=== PATIENT | female | born 1955 | race Caucasian/White ===

== ENCOUNTER 2023-04-12 15:10 | Emergency (ER) | payer OTHER, MEDICARE, SELFPAY ==
[2023-04-12 15:15] VITALS: BP 147/74; PULSE 71; RESP 16; TEMP 36.6; O2SAT 98; BMI 21.3
--- NOTE | 2023-04-12 15:23 | ED.SKABFB1 ---
HPI - Skin/Abscess/Foreign Bdy General Chief complaint: Skin/Abscess/Foreign Body Stated complaint: [facility] IN[facility] Time Seen by Provider: 04/12/23 15:23 Source: patient Mode of arrival: walk-in Limitations: no limitations History of Present Illness HPI narrative: Presenting to the ER with a laceration to the left hand that she sustained while shopping at [employer] from one of the place there was she is grabbing it The patient does not remember the last time she had a tetanus booster Related Data Allergies Allergy/AdvReac Type Severity Reaction Status Date / Time No Known Drug Allergies Allergy Verified 04/12/23 15:14 Review of Systems ROS Status of ROS 10 or more systems reviewed and unremarkable except as noted in history and below PFSH PFS Social History Smoking status: Never smoker Exam Narrative Exam Narrative: Nurses notes and vital signs reviewed and patient is not hypoxic. General: Well-appearing and in no apparent distress. Skin: Warm, dry, no pallor noted. No rash. Head: Normocephalic, atraumatic. Neck: Supple, non-tender. Eye: Pupils are equal, round and EOMI. No scleral icterus. Ears, Nose, Mouth, and Throat: TM are clear, no nasal mucosal hypertrophy. Oral mucosa is moist, no posterior oropharynx erythema, uvula is mid-line Cardiovascular: Regular Rate and Rhythm without murmur, gallop or rub. Respiratory: No accessory muscle use or respiratory distress. Lungs are clear to auscultation, no wheezing, rales or rhonchi Chest Wall: no tenderness Back: No midline thoracic or lumbar vertebral tenderness. No CVA tenderness Musculoskeletal: normal ROM, no calf or popliteal tenderness, no lower extremity edema/swelling, on the palmar aspect of the left hand just below the index finger at the metacarpal phalangeal joint the patient have a laceration that is superficial with no exposure of the underlying structures approximated by self although there is some bleeding GI: Abdomen is soft, non-distended. Normal bowel sounds. No masses appreciated. No tenderness to palpation. No rebound, guarding, or rigidity noted. Neurological: A&O x4. No cranial nerve dysfunction observed. No truncal ataxia. Moves all extremities. Sensation intact. Psychiatric: Cooperative and interactive. Normal mood and affect. Constitutional Vital Signs, click to edit/add: Last Vital Signs Temp 98 F 04/12/23 15:15 Pulse 71 04/12/23 15:15 Resp 16 04/12/23 15:15 BP 147/74 H 04/12/23 15:15 Pulse Ox 98 04/12/23 15:15 O2 Del Method Room Air 04/12/23 15:15 Course Vital Signs Vital signs: Vital Signs Temperature 98 F 04/12/23 15:15 Pulse Rate 71 04/12/23 15:15 Respiratory Rate 16 04/12/23 15:15 Blood Pressure 147/74 H 04/12/23 15:15 Pulse Oximetry 98 04/12/23 15:15 Oxygen Delivery Method Room Air 04/12/23 15:15 Temperature 98 F 04/12/23 15:15 Pulse Rate 71 04/12/23 15:15 Respiratory Rate 16 04/12/23 15:15 Blood Pressure 147/74 H 04/12/23 15:15 Pulse Oximetry 98 04/12/23 15:15 Oxygen Delivery Method Room Air 04/12/23 15:15 MDM - Skin/Abscess/Foreign Bdy MDM Narrative Medical decision making narrative: No foreign body and no exposure of the underlying structures no tendon involvement as well Patient had pressure applied and then Dermabond and then clean dressing with Dante wrap Wound care at home Tetanus booster provided in the ER The patient is to follow up with primary care physician in next 2-3 days or to return to the emergency department should any of the signs or symptoms worsen or new symptoms develop. The patient agrees with the following Diagnosis and Treatment plan and the patient will be discharged home. Discharge Plan Discharge Chief Complaint: Skin/Abscess/Foreign Body Clinical Impression: Hand laceration Patient Disposition: Home, Self-Care Time of Disposition Decision: 15:30 Condition: Good Instructions: Laceration (ED), Skin Adhesive Care (ED) Stand Alone Forms: Portal Instructions Referrals: Fritz Dubon MD [Physician] - 1 week
[2023-04-12] MEDS: ADACEL DIPH,PERTUSS(ACELL),TET VAC/PF 0.5 ML ADULT SYRINGE IM (15:35)
[2023-04-12 15:40] VITALS: BP 137/72; PULSE 82; RESP 18; O2SAT 98
== END 2023-04-12 15:42 | disposition home or self-care (01) ==
PROVIDERS: Emergency Provider Emergency Medicine; PCP Family Medicine
DX: S61.211A Laceration without foreign body of left index finger without damage to nail, initial encounter (principal); Z23 Encounter for immunization; W26.9XXA Contact with unspecified sharp object(s), initial encounter
CPT/HCPCS: 90471; 90715; 99284

== ENCOUNTER 2024-04-13 22:27 | Emergency (ER) | payer MEDICARE, SELFPAY ==
--- OUTSIDE RECORDS SUMMARY | 2024-04-13 22:32 | XMS_ITS | CCD ---
Author Organization [facility] Care Team Providers Care Intake Clinician Name Role Phone ROMELIA POZO Admitting Unavailable DR RAMON ARCHIBALD Primary Care Unavailable ROMELIA POZO Attending Unavailable ROMELIA POZO Consulting Unavailable EMMETT, DR RAMON Hauser Primary Care Unavailable ROMELIA POZO Attending Unavailable ROMELIA POZO Consulting Unavailable ROMELIA POZO Admitting Unavailable EMMETT, DR RAMON Hauser Attending Unavailable EMMETT, DR RAMON Hauser Consulting Unavailable EMMETT, DR RAMON Hauser Primary Care Unavailable DR RAMON ARCHIBALD Admitting Unavailable Medications Current Medications Medication Drug Class(es) Dates Sig (Normalized) Sig (Original) [id number] 200 actuat albuterol 0.09 mg/actuat metered dose inhaler (1 source) beta2-Adrenergic Agonist Start: 03-24-2024 take 1 puff(s) by inhalation every four hours Albuterol Sulfate Active 2 PUFF INHALATION Q4H 1 March 24, 2024 12:00am amoxicillin 500 mg oral capsule (1 source) Penicillin-class Antibacterial Start: 03-24-2024 take 1000 mg by mouth every eight hours Amoxicillin Active 1000 MG PO Every 8 hours 42 7 March 24, 2024 12:00am predniSONE 20 mg oral tablet (1 source) Start: 03-24-2024 take 20 mg by mouth twice daily Prednisone Active 20 MG PO Twice daily 10 March 24, 2024 12:00am Pyrilamine-Dextrom ethorphan ([place] Dm) 7.5-7.5 mg/5 mL liquid (1 source) Start: 03-24-2024 take 1 mL by mouth every eight hours Pyrilamine-Dextro methorphan ([place] Dm) 7.5-7.5 mg/5 mL liquid Active 10 ML PO Every 8 hours 150 March 24, 2024 12:00am Problems Active Problems Problem Classification Problem Date Documented Da te Episodic/Chronic Immunizations and screening for infectious disease (4 sources) Encounter for immunization; Translations: [ENCOUNTER FOR IMMUNIZATION] Onset: 04-12-2021 Episodic Other lower respiratory disease (1 source) Unspecified acute lower respiratory infection; Translations: [Other diseases of respiratory system, not elsewhere classified] 03-24-2024 Episodic Other screening for suspected conditions (not mental disorders or infectious disease) (2 sources) Patient encounter status; Translations: [Encounter for screening mammogram for malignant neoplasm of breast] 03-25-2024 Episodic Residual codes; unclassified (1 source) Menopause present; Translations: [Asymptomatic menopausal state] 03-25-2024 Episodic Residual codes; unclassified (1 source) Asymptomatic menopausal state; Translations: [Symptomatic menopausal or female climacteric states] 03-25-2024 Episodic Unclassified (2 sources) CONTACT W/AND (SUSP) EXPOS COVID-19; Translations: [CONTACT W/AND (SUSP) EXPOS COVID-19] Onset: 04-02-2021 Viral infection (1 source) COVID-19; Translations: [COVID-19] Onset: 04-02-2021 Past or Other Problems Problem Classification Problem Date Documented Da te Episodic/Chronic Unclassified (1 source) CONTACT W/AND (SUSP) EXPOS COVID-19; Translations: [CONTACT W/AND (SUSP) EXPOS COVID-19] Onset: 03-28-2021 Results Test Name Value Interpretation Reference Range Facil ity Covid-19 PCR (CVDTBH)on 03-11 SARS-CoV-2 (COVID-19) RNA LILLY+probe Ql (Unsp spec) Detected Critically abnormal NOT DETECTED [facility] Comment on above: Result Comment: This test is not yet aguilar roved or cleared by the [place] FDA. When there are no FDA-approved or cleared tests available, and other criteria are met, FDA can make tests available under an emergency access mechanism called an Emergency Use Authorization (EUA). The EUA for this test is supported by the [place] of Health and Human Service's (HHS's) declaration that circumstances exist to justify the emergency use of in vitro diagnostics for the detection and/or diagnosis of the virus that causes COVID-19. This EUA will remain in effect (meaning this test can be used) for the duration of the COVID-19 declaration justifying emergency of IVDs, unless it is terminated or revoked by FDA (after which the test may no longer be used). Performed By: #### [facility] #### [facility] [address] [place] [address] Dr. Vamshi Whittington Vital Signs Date Time Vital Sign Value Performing Clinician Susan clement 03-25-2024 08:16-0400 Body height 172.72 cm [facility] 03-25-2024 08:16-0400 Body mass index (BMI) [Ratio] 21.8 kg/m2 [facility] 03-25-2024 08:16-0400 Body weight 65.03 kg [facility] 03-25-2024 08:16-0400 Diastolic blood pressure 70 mm[Hg] [facility] 03-25-2024 08:16-0400 Heart rate 84 /min [facility] 03-25-2024 08:16-0400 Respiratory rate 16 /min [facility] 03-25-2024 08:16-0400 SaO2% (BldA) [Mass fraction] 97 % [facility] 03-25-2024 08:16-0400 Systolic blood pressure 130 mm[Hg] [facility] 03-24-2024 16:39-0400 Body height 172.72 cm [facility] 03-24-2024 16:39-0400 Body mass index (BMI) [Ratio] 22.2 kg/m2 [facility] 03-24-2024 16:39-0400 Body temperature 98.7 [degF] [facility] 03-24-2024 16:39-0400 Body weight 66.28 kg [facility] 03-24-2024 16:39-0400 Diastolic blood pressure 76 mm[Hg] [facility] 03-24-2024 16:39-0400 Heart rate 67 /min [facility] 03-24-2024 16:39-0400 Respiratory rate 18 /min [facility] 03-24-2024 16:39-0400 SaO2% (BldA) [Mass fraction] 95 % [facility] 03-24-2024 16:39-0400 Systolic blood pressure 126 mm[Hg] [facility] Encounters Encounter Date Encounter Type Care Provider Facility Start: 03-25-2024 End: 03-25-2024 ambulatory [facility] Work Phone: Start: 03-25-2024 End: 03-25-2024 Patient encounter procedure [facility] Work Phone: Start: 03-24-2024 End: 03-24-2024 ambulatory [facility] Work Phone: Start: 03-24-2024 End: 03-24-2024 Patient encounter procedure [facility] Work Phone: Start: 04-12-2021 End: 04-12-2021 ambulatory ROMELIA POZO Facility:[facility] Start: 03-28-2021 End: 03-28-[address] RAMON ARCHIBALD Facility:[facility] Start: 03-22-2021 End: 03-22-[address] RAMON ARCHIBALD Facility:[facility] Plan of Treatment Date Care Activity Detail Author DXA Skeletal system. axial Views for bone density [facility] enter MG Breast - bilateral Screening [facility] Payers Date Payer Category Payer Medicare [id number] 1955 Unknown [id number] 1955 Unknown [id number] 1955 Unknown [id number] Private Health Insurance [facility] [id number] Social History Date Type Detail [facility] Work Phone: Start: 1955 Sex Assigned At Female F [facility] Start: 03-25-2024 [facility] Evaluation note Note Date & Type Note Facility Evaluation note No assessment information availa ble [facility] Work Phone: Evaluation note Note Date & Type Note Facility Evaluation note Diagnosis Onset Date [id number] noneactive Menopause acute Screening mammogram for breast cancer acute [facility] Work Phone: Summary Purpose Family History No Family History Records Found Advance Directives Advance Directive Response Recorded Date/ Time Advance Directives No March 24, 2024 4:12pm Chief Complaint and Reason for Visit Chief Complaint cough(2 weeks) Chief Complaint cough(2 weeks) wellness/re-establish Reason for Visit [id number] Menopause Screening mammogram for breast cancer Additional Source Comments INFORMATION SOURCE (unrecogn ized section and content) DATE CREATED AUTHOR 04/25/2021 [facility] (unrecognized sec tion and content) Team Status: Active Member Role Status Dates NON STAFF Primary Care Provider Active Team Status: Inactive Member Role Status Dates Ariana Aceves APRN Attending Provider Active Start: March 24, 2024 End: March 24, 2024 NON STAFF Primary Care Provider Active Start: March 24, 2024 End: March 24, 2024 Team Status: Inactive Member Role Status Dates Ramon Archibald MD Attending Provider Active St art: March 25, 2024 End: March 25, 2024 NON STAFF Primary Care Provider Active Start: March 25, 2024 End: March 25, 2024 Goals (unrecognized section and content) Goals may be documented in a n alternate sectionGoals may be documented in an alternate section FOR RECORDS PERTAINING TO PATIENTS WHO ARE OR HAVE BEEN ENROLLED IN A CHEMICAL DEPENDENCY/SUBSTANCEABUSE PROGRAM, SOME INFORMATION MAY BE OMITTED. This clinical summary was aggregated from multiple sources. Caution should be exercised in using it in the provision of clinical care. This summary normalizes information from multiple sources, and as a consequence, information in this document may materially change the coding, format and clinical context of patient data. In addition, data may be omitted in some cases. CLINICAL DECISIONS SHOULD BE BASED ON THE PRIMARY CLINICAL RECORDS. [facility] [employer] [facility]. provides no warranty or guarantee of the accuracy or completeness of information in this document.
[2024-04-13 22:34] VITALS: BP 164/85; PULSE 110; TEMP 37; O2SAT 93; BMI 21.3
[2024-04-13 22:43] VITALS: O2SAT 92
[2024-04-13] MEDS: ONDANSETRON 4 MG RAPDIS TABLET SL (23:00)
[2024-04-13] MEDS: CODEINE 10 MG/GUAIFENESIN 100 MG 5 ML CUP PO (23:00)
--- NOTE | 2024-04-13 23:06 | ED_ITS ---
HPI - URI/Sore Throat General Chief Complaint: Upper Respiratory Infection Stated Complaint: cough Time Seen by Provider: 04/13/24 22:35 Source: patient Limitations: no limitations History of Present Illness HPI Narrative: This 69-year-old female, non-smoker presents for evaluation of an ongoing cough and chest congestion with tightness and wheezing. The patient states she has been coughing for approximately 1 month. She went to urgent care and received a prescription for dextromethorphan cough medication and antibiotics. She states she has finished the antibiotics and still taking the cough medication but she has a nonstop cough. She has not had a fever. Her cough is nonproductive with the exception of occasional white phlegm. She denies any lyla chest pain dizziness or syncope. She did not have a chest x-ray performed at the time that she received her antibiotics and steroids and does not think she was tested for COVID-19 or influenza. Related Data Home Medications ?Medication ?Instructions ?Recorded ?Confirmed albuterol sulfate 90 mcg/actuation 2 puff inhalation Q4H PRN 04/13/24 04/13/24 aerosol inhaler shortness of breath or wheezing pyrilamine 7.5 mg-dextromethorphan 10 ml PO TID PRN cough 04/13/24 04/13/24 7.5 mg/5 mL oral liquid ([place] DM) Allergies Allergy/AdvReac Type Severity Reaction Status Date / Time No Known Drug Allergies Allergy Verified 04/13/24 22:39 Review of Systems ROS Status of ROS 10 or more systems reviewed and unremark able except as noted in history and below PFSH PFSH Social History Smoking status: Never smoker Little interest or pleasure in doing things: not at all Feeling down, depressed, or hopeless: not at all Exam Narrative Exam Narrative: Vital signs and Nursing Notes reviewed: Patient is afebrile, she is mildly tachycardic with a pulse of 110 and blood pressure is elevated at 164/85, she is mildly hypoxic with pulse ox of 92% on room air General: Awake, alert, oriented, nontoxic female with a bronchospastic cough in between coughing spells her speech is clear HEENT: Normocephalic atraumatic, mucous membranes are moist and pink, eyes are clear, normal conjunctiva, vision is grossly intact, posterior pharynx is normal in appearance Neck: Supple, no meningeal signs, no anterior or posterior cervical lymphadenopathy Chest: Bilateral expiratory wheezing with rhonchi mostly in the posterior upper lobes, no accessory muscle use noted, bronchospastic cough CVS: Regular rate and rhythm S1-S2, no murmurs rubs or gallops, pulses are brisk and equal bilaterally ABD: Soft, nondistended, nontender, no rebound guarding or rigidity, bowel sounds are normal, no pulsatile masses appreciated Extremities: Moving all extremities, no lower extremity tenderness or swelling noted, negative Homans' sign, pulses are brisk and equal bilaterally Skin: Normal in appearance without rash,pallor, petechiae or purpura Neuro: No focal deficits Constitutional Vital Signs, click to edit/add: Last Vital Signs Temp 98.6 F 04/13/24 22:34 Pulse 89 04/13/24 23:46 Resp 18 04/13/24 23:46 BP 118/64 04/13/24 23:46 Pulse Ox 95 04/13/24 23:46 O2 Del Method Room Air 04/13/24 23:46 Course Vital Signs Vital signs: Vital Signs Temperature 98.6 F 04/13/24 22:34 Pulse Rate 110 H 04/13/24 22:34 Respiratory Rate 18 04/13/24 22:34 Blood Pressure 164/85 H 04/13/24 22:34 Pulse Oximetry 93 L 04/13/24 22:34 Oxygen Delivery Method Room Air 04/13/24 22:34 Temperature 98.6 F 04/13/24 22:34 Pulse Rate 89 04/13/24 23:46 Respiratory Rate 18 04/13/24 23:46 Blood Pressure 118/64 04/13/24 23:46 Pulse Oximetry 95 04/13/24 23:46 Oxygen Delivery Method Room Air 04/13/24 23:46 MDM - URI/Sore Throat MDM Narrative Medical decision making narrative: 69-year-old female, non-smoker with no history of tobacco use or COPD presents for evaluation of a cough that has been present for the past month. She was seen at urgent care and put on steroids, amoxicillin and given cough medicine and inhaler. She finished the antibiotics and steroids and is still using the cough medication at night. She rarely uses the inhaler. Despite these medications and treatment she is not having any improvement in her cough and her cough is worsened over the past 24 hours. She has a bronco spastic cough and was mildly hypoxic at triage. She has expiratory wheezing mostly in the upper lobes of her lungs. She denied any chest pain dizziness or syncope. She has no abdominal pain. She was given a DuoNeb treatment and Robitussin with codeine and routine labs were ordered. She has a normal white count and hemoglobin. She has normal electrolytes. She has normal troponin D-dimer and BNP. Two-view chest x-ray was reviewed by myself and does not show any acute infiltrate, signs of CHF or other notable abnormality. On reevaluation she is feeling somewhat better, her cough appears to be decreasing and her lungs show improved air entry with pulse ox now 95 to 96%. She does have an inhaler at home. I encouraged her to start using the inhaler every 4 hours to help with her bronchospasm. In addition she will be treated with Zithromax and given additional Robitussin with codeine for the cough. She states she is able to sleep at night but her states she coughs all night. 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 She was also started on Zithromax from the emergency department and the remainder of the 5-day course was prescribed. She was encouraged to drink plenty of liquids and return to the emergency department for worsening symptoms or any concerns. Lab Data Attestation: I reviewed the patient's lab results. Labs: Lab Results 04/13/24 Range/Units 23:00 WBC 6.7 (4.0-11.0) 10^3/uL RBC 4.38 (4.20-5.40) 10^6/uL Hgb 12.5 (12.0-16.0) g/dL Hct 38.0 (36.0-48.0) % MCV 86.8 (81.0-99.0) fL MCH 28.5 (26.7-34.0) pg MCHC 32.9 (29.9-35.2) g/dL RDW 13.2 (11.0-15.0) % Plt Count 236 (150-450) 10^3/uL MPV 9.4 L (9.5-13.5) fL Neut % (Auto) 42.1 L (43.0-75.0) % Lymph % (Auto) 40.9 (20.5-60.0) % [place] % (Auto) 6.2 (1.7-12.0) % Eos % (Auto) 9.6 H (0.9-7.0) % Baso % (Auto) 1.2 (0.2-2.0) % Neut # (Auto) 2.8 (1.4-6.5) 10^3/uL Lymph # (Auto) 2.7 (1.2-3.8) 10^3/uL [place] # (Auto) 0.4 (0.3-0.8) 10^3/uL Eos # (Auto) 0.6 (0.0-0.7) 10^3/uL Baso # (Auto) 0.1 (0.0-0.1) 10^3/uL Abs Immat Gran (auto) 0.00 (0.00-0.03) 10^3/uL Imm/Tot Granulo (auto) 0.0 (0.0-0.5) % D-Dimer 0.44 (<=0.59) mg/L FEU Sodium 145 (136-145) mmol/L Potassium 4.3 (3.5-5.1) mmol/L Chloride 109 H (98-107) mmol/L Carbon Dioxide 27.5 (21.0-32.0) mmol/L Anion Gap 12.8 BUN 11.0 (7.0-18.0) mg/dL Creatinine 0.86 (0.55-1.02) mg/dL Est GFR ( Amer) >60 (>=60 mL/min/1.73m^2) Est GFR (Non-Af Amer) >60 (>=60 mL/min/1.73m^2) BUN/Creatinine Ratio 12.8 Glucose 97 (74-106) mg/dL Calcium 9.4 (8.5-10.1) mg/dL Total Bilirubin 0.3 (0.2-1.0) mg/dL AST 14 L (15-37) U/L ALT 21 (14-59) U/L Alkaline Phosphatase 69 (46-116) U/L Troponin I High Sens 8.7 (4.0-51.3) pg/mL NT-Pro-B Natriuret Pep 60.0 (<=900.0) pg/mL Total Protein 7.0 (6.4-8.2) g/dL Albumin 3.6 (3.4-5.0) g/dL Globulin 3.4 g/dL Albumin/Globulin Ratio 1.1 Discharge Plan Discharge Chief Complaint: Upper Respiratory Infection Clinical Impression: Upper respiratory infection, Asthmatic bronchitis Patient Disposition: Home, Self-Care Time of Disposition Decision: 00:45 Condition: Good Prescriptions / Home Meds: No Action albuterol sulfate 90 mcg/actuation HFA aerosol inhaler 2 puff INHALATION Q4H PRN (Reason: shortness of breath or wheezing) pyrilamine-dextromethorphan [[place] DM] 7.5-7.5 mg/5 mL liquid 10 ml PO TID PRN (Reason: cough) Print Language: [place] Instructions: How to Use a Metered-Dose Inhaler (ED), Upper Respiratory Infection (ED), Acute Bronchitis (ED) Referrals: Amy Archibald MD [Primary Care Provider] - 1 week
[2024-04-13 23:18] VITALS: PULSE 88; O2SAT 97
[2024-04-13] MEDS: IPRATROPIUM/ALBUTEROL SULFATE 3 ML AMPUL.NEB IH (23:18)
[2024-04-13 23:29] VITALS: PULSE 96; O2SAT 99
[2024-04-13 23:31] LABS: Basophils Absolute Auto 0.1 10^3/uL (0.0-0.1); Basophils Percent Auto 1.2 % (0.2-2.0); Eosinophils Absolute Auto 0.6 10^3/uL (0.0-0.7); Eosinophils Percent Auto 9.6 % (0.9-7.0); Hemoglobin 12.5 g/dL (12.0-16.0); Lymphocytes Absolute Auto 2.7 10^3/uL (1.2-3.8); Lymphocytes Percent Auto 40.9 % (20.5-60.0); Mean Corpuscular HGB Conc 32.9 g/dL (29.9-35.2); Mean Corpuscular Hemoglobin 28.5 pg (26.7-34.0); Mean Corpuscular Volume 86.8 fL (81.0-99.0); Mean Platelet Volume 9.4 fL (9.5-13.5); Monocytes Absolute Auto 0.4 10^3/uL (0.3-0.8); Monocytes Percent Auto 6.2 % (1.7-12.0); Neutrophils Absolute Auto 2.8 10^3/uL (1.4-6.5); Neutrophils Percent Auto 42.1 % (43.0-75.0); Platelet Count 236 10^3/uL (150-450); Red Blood Count 4.38 10^6/uL (4.20-5.40); Red Cell Distribution Width 13.2 % (11.0-15.0); White Blood Count 6.7 10^3/uL (4.0-11.0)
[2024-04-13 23:46] VITALS: BP 118/64; PULSE 89; O2SAT 95
[2024-04-13 23:47] LABS: D Dimer 0.44 mg/L FEU (<=0.59)
[2024-04-13 23:55] LABS: Alanine Aminotransferase 21 U/L (14-59); Albumin Globulin Ratio 1.1; Albumin Level 3.6 g/dL (3.4-5.0); Alkaline Phosphatase 69 U/L (46-116); Anion Gap 12.8; Aspartate Amino Transferase 14 U/L (15-37); BUN Creatinine Ratio 12.8; Bilirubin Total 0.3 mg/dL (0.2-1.0); Calcium 9.4 mg/dL (8.5-10.1); Carbon Dioxide 27.5 mmol/L (21.0-32.0); Chloride 109 mmol/L (98-107); Estimated GFR (African America >60 (>=60 mL/min/1.73m^2); Estimated GFR (Non-African Ame >60 (>=60 mL/min/1.73m^2); Globulin 3.4 g/dL; Glucose 97 mg/dL (74-106); Potassium 4.3 mmol/L (3.5-5.1); Sodium 145 mmol/L (136-145); Troponin I High Sensitivity 8.7 pg/mL (4.0-51.3)
--- NOTE | 2024-04-14 | XR_ITS ---
The [address] [address] Patient Name: BROOKLYN APPLE MRN: [id number] date: 1955 Sex: F Assigned Patient Location: ER Current Patient Location: Accession/Order Number: [id number] Exam Date: 04/14/2024 00:02 Report Date: 04/14/2024 01:35 At the request of: EMILY MARKER Procedure: XR chest 2V EXAM: XR chest 2V HISTORY: SOB . Cough for one month, not improving with recent antibiotic treatment. COMPARISON: None. TECHNIQUE: Frontal and lateral chest x-rays. FINDINGS: The heart, mediastinum and pulmonary vascularity are within normal limits. The lungs are well expanded and clear. There is a mild broad thoracic dextroscoliosis. No acute osseous abnormality is seen. XR/XR chest 2V IMPRESSION: Nonacute chest. Electronically authenticated by: ALE SCHWARZ Date: 04/14/2024 01:35
[2024-04-14] MEDS: AZITHROMYCIN 250 MG TABLET 500 MG PO (01:10)
[2024-04-14] MEDS: CODEINE 10 MG/GUAIFENESIN 100 MG 5 ML CUP 10 ML PO (01:11)
== END 2024-04-14 01:18 | disposition home or self-care (01) ==
PROVIDERS: Emergency Provider Emergency Medicine; PCP Family Medicine
DX: J06.9 Acute upper respiratory infection, unspecified (principal); J45.909 Unspecified asthma, uncomplicated; R09.02 Hypoxemia; R06.2 Wheezing
CPT/HCPCS: 36415; 71046; 80053; 83880; 84484; 85025; 85378; 94640; 99284; Q0162

== ENCOUNTER 2024-04-21 16:17 | Outpatient (OUT) | payer MEDICARE, OTHER, SELFPAY ==
--- NOTE | 2024-04-21 | XR_ITS ---
The [address] [address] Patient Name: BROOKLYN APPLE MRN: [id number] date: 1955 Sex: F Assigned Patient Location: [facility] Current Patient Location: Accession/Order Number: [id number] Exam Date: 04/21/2024 16:30 Report Date: 04/22/2024 13:51 At the request of: RAMON CHRISTINE Procedure: XR chest 2V EXAMINATION: XR chest 2V HISTORY: Bronchitis J40 COMPARISON: 04/14/2024 TECHNIQUE: PA and lateral FINDINGS: LUNGS: No significant pulmonary parenchymal abnormalities. VASCULATURE: No increased pulmonary vasculature. PLEURA: No pneumothorax, effusion, or pleural thickening. CARDIAC: No cardiomegaly or cardiac silhouette abnormality. MEDIASTINUM: No visible mass or adenopathy. BONES: No fracture or visible bone lesion. OTHER: Negative. XR/XR chest 2V IMPRESSION: No acute cardiopulmonary process Electronically authenticated by: ABDOULAYE SOMMERS Date: 04/22/2024 13:51
--- OUTSIDE RECORDS SUMMARY | 2024-04-21 16:25 | XMS_ITS | CCD ---
Author Organization [facility] InformCount includes the [facility] Care Team Providers Care [employer] Name Role Phone ROMELIA POZO Admitting Unavailable [...] Drug Class(es) Dates Sig (Normalized) Sig (Original) [id number] 200 actuat albuterol 0.09 mg/actuat metered dose [...] 10 March 24, 2024 12:00am Pyrilamine-Dextrom ethorphan ([place] [facility]) 7.5-7.5 mg/5 mL liquid (1 source) Start: 03-24-2024 take 1 mL by mouth every eight hours Pyrilamine-Dextro methorphan ([place] [facility]) 7.5-7.5 mg/5 mL liquid Active 10 [...] spec) Detected Critically abnormal NOT DETECTED [facility] Comment on above: Result Comment: This test is not yet aguilar roved or cleared by the [place] FDA. When there are no FDA-approved or cleared tests available, and other criteria are met, FDA can make tests available under an emergency access mechanism called an Emergency Use Authorization (EUA). The EUA for this test is supported by the [place] of Health and Human Service's (HHS's) declaration [...] longer be used). Performed By: #### [facility] #### [facility] [address] [place] [address] Dr. Vamshi Whittington Vital Signs Date Time Vital Sign Value Performing Clinician Susan clement 03-25-2024 08:16-0400 Body height 172.72 cm [facility] 03-25-2024 08:16-0400 Body mass index (BMI) [Ratio] 21.8 kg/m2 [facility] 03-25-2024 08:16-0400 Body weight 65.03 kg [facility] 03-25-2024 08:16-0400 Diastolic blood pressure 70 mm[Hg] [facility] 03-25-2024 08:16-0400 Heart rate 84 /min [facility] 03-25-2024 08:16-0400 Respiratory rate 16 /min [facility] 03-25-2024 08:16-0400 SaO2% (BldA) [Mass fraction] 97 % [facility] 03-25-2024 08:16-0400 Systolic blood pressure 130 mm[Hg] [facility] 03-24-2024 16:39-0400 Body height 172.72 cm [facility] 03-24-2024 16:39-0400 Body mass index (BMI) [Ratio] 22.2 kg/m2 [facility] 03-24-2024 16:39-0400 Body temperature 98.7 [degF] [facility] 03-24-2024 16:39-0400 Body weight 66.28 kg [facility] 03-24-2024 16:39-0400 Diastolic blood pressure 76 mm[Hg] [facility] 03-24-2024 16:39-0400 Heart rate 67 /min [facility] 03-24-2024 16:39-0400 Respiratory rate 18 /min [facility] 03-24-2024 16:39-0400 SaO2% (BldA) [Mass fraction] 95 % [facility] 03-24-2024 16:39-0400 Systolic blood pressure 126 mm[Hg] [facility] Encounters Encounter Date Encounter Type Care Provider Facility Start: 03-25-2024 End: 03-25-2024 ambulatory [facility] Work Phone: Start: 03-25-2024 End: 03-25-2024 Patient encounter procedure [facility] Work Phone: Start: 03-24-2024 End: 03-24-2024 ambulatory [facility] Work Phone: Start: 03-24-2024 End: 03-24-2024 Patient encounter procedure [facility] Work Phone: Start: 04-12-2021 End: 04-12-2021 ambulatory ROMELIA POZO Facility:[facility] Start: 03-28-2021 End: 03-28-[address] RAMON ARCHIBALD Facility:[facility] Start: 03-22-2021 End: 03-22-[address] RAMON ARCHIBALD Facility:[facility] Plan of Treatment Date Care Activity Detail Author DXA Skeletal system. axial Views for bone density [facility] enter MG Breast - bilateral Screening [facility] Payers Date Payer Category Payer Medicare [id number] 1955 Unknown [id number] 1955 Unknown [id number] 1955 Unknown [id number] Private Health Insurance [facility] [id number] Social History Date Type Detail [facility] Work Phone: Start: 1955 Sex Assigned At Female F [facility] Start: 03-25-2024 [facility] (finding) [facility] Evaluation note Note Date & Type Note Facility Evaluation note No assessment information availa ble [facility] Work Phone: Evaluation note Note Date & Type Note Facility Evaluation note Diagnosis Onset Date [id number] noneactive Menopause acute Screening mammogram for breast cancer acute [facility] Work Phone: Summary Purpose Family History No Family History Records Found Advance Directives Advance Directive Response Recorded Date/ Time Advance Directives No March 24, 2024 4:12pm Chief Complaint and Reason for Visit Chief Complaint cough(2 weeks) Chief Complaint cough(2 weeks) wellness/re-establish Reason for Visit [id number] Menopause Screening mammogram for breast cancer Additional Source Comments INFORMATION SOURCE (unrecogn ized section and content) DATE CREATED AUTHOR 04/25/2021 [facility] (unrecognized sec tion and content) [...] BE BASED ON THE PRIMARY CLINICAL RECORDS. [facility] [employer] [facility] provides no warranty or guarantee of the accuracy or completeness of information in this document.
== END 2024-04-21 16:18 | disposition home or self-care (01) ==
PROVIDERS: PCP Family Medicine; Visit Provider Family Medicine
DX: J40 Bronchitis, not specified as acute or chronic (principal)
CPT/HCPCS: 71046

== ENCOUNTER 2024-05-15 09:23 | Outpatient (OUT) | payer MEDICARE, OTHER, SELFPAY ==
--- NOTE | 2024-05-15 09:28 | CT_ITS ---
[address] [address] Patient Name: BROOKLYN APPLE MRN: [id number] date: 1955 Sex: F Assigned Patient Location: CT Current Patient Location: Accession/Order Number: [id number] Exam Date: 05/15/2024 09:30 Report Date: 05/16/2024 04:56 At the request of: RAMON CHRISTINE Procedure: CT chest wo con EXAMINATION: CT chest wo con HISTORY: Bronchitis COMPARISON: No relevant comparison available. TECHNIQUE: Axial, Coronal, and Sagittal images were created without the administration of IV contrast material. Dose reduction techniques were achieved by using automated exposure control and/or adjustment of mA and/or kV according to patient size and/or use of iterative reconstruction technique. FINDINGS: LUNGS: A few small 4 mm nodules within the lower lobes bilaterally. Mild emphysematous changes. No acute infiltrates. Mild left lower lobe bronchiectasis, mild wall thickening, and bilateral scattered mucous plugging of the bronchi.. PLEURA: No mass, effusion, or pneumothorax. VASCULATURE: No abnormality. THEODORE: No mass or pathologic adenopathy. MEDIASTINUM: No mass or pathologic adenopathy. CARDIAC: No enlargement, pericardial thickening, or pericardial effusion. Coronary Artery calcifications: Coronary calcifications are absent. AORTA: No aneurysm or dissection. CHEST WALL: No mass or axillary adenopathy BONES: No bone lesion or fracture. LIMITED ABDOMEN: No suspicious findings. Limited images of the upper abdomen. OTHER: Negative. CT/CT chest wo con IMPRESSION: 1. Mild bibasilar bronchiectasis, likely bronchiolitis, and scattered mucous plugging. 2. Evaluation is limited by significant respiratory motion artifact. 3. Several 4 mm nodules within the lower lobes bilaterally. Consider follow-up CT chest in 6 months to document stability. Electronically authenticated by: JOSE MCCRAY Date: 05/16/2024 04:56
--- OUTSIDE RECORDS SUMMARY | 2024-05-15 09:42 | XMS_ITS | CCD ---
Author Organization [facility] CliniSyfl Care Team Providers Care Pharmacy Operations Manager Name Role Phone ROMELIA POZO Admitting Unavailable DR AMY ARCHIBALD Primary Care Unavailable ROMELIA POZO Attending Unavailable ROMELIA POZO Consulting Unavailable EMMETT, DR AMY Hauser Primary Care Unavailable ROMELIA POZO Attending Unavailable ROMELIA POZO Consulting Unavailable ROMELIA POZO Admitting Unavailable EMMETT, DR AMY Hauser Attending Unavailable EMMETT, DR AMY Hauser Consulting Unavailable EMMETT, DR AMY Hauser Primary Care Unavailable DR AMY ARCHIBALD Admitting Unavailable Medications Current Medications Medication Drug Class(es) Dates Sig (Normalized) Sig (Original) [id number] 200 actuat albuterol 0.09 mg/actuat metered dose inhaler (2 sources) beta2-Adrenergic Agonist Start: 03-24-2024 take 1 puff(s) by inhalation every four hours Albuterol Sulfate 90 mcg/actuation HFA aerosol inhaler Active 2 PUFF INHALATION Q4H 1 March 23, 2024 11:00pm cefdinir 300 mg oral capsule (1 source) Cephalosporin Antibacterial Start: 04-21-2024 take 1 capsule by mouth twice daily Cefdinir 300 mg capsule Active 300 MG PO Twice daily April 21, 2024 12:00am predniSONE 20 mg oral tablet (3 sources) Start: 03-24-2024 End: 04-21-2024 take 1 tablet by mouth twice daily Prednisone 20 mg tablet Active 20 MG PO Twice daily 10 April 21, 2024 4:03pm Completed/Discontinued Medications Medication Drug Class(es) Dates Sig (Normalized) Sig (Original) amoxicillin 500 mg oral capsule (2 sources) Penicillin-class Antibacterial Start: 03-24-2024 End: 04-21-2024 take 2 capsules by mouth every eight hours Amoxicillin 500 mg capsule Discontinued 1000 MG PO Every 8 hours 42 March 23, 2024 11:00pm April 21, 2024 3:47pm Start: 03-24-2024 take 1000 mg by mout h every eight hours Amoxicillin Active 1000 MG PO Every 8 hours 42 March 24, 2024 12:00am Pyrilamine-Dextromethorphan ([place] Dm) 7.5-7.5 mg/5 mL liquid (2 sources) Start: 03-24-2024 End: 04-21-2024 take 1 mL by mouth every eight hours Pyrilamine-Dextromethorphan ([place] Dm) 7.5-7.5 mg/5 mL liquid Discontinued 10 ML PO Every 8 hours 150 March 23, 2024 11:00pm April 21, 2024 3:47pm Start: 03-24-2024 take 1 mL by mouth every eight hours Pyrilamine-Dextromethorphan ([place] Dm) 7.5-7.5 mg/5 mL liquid Active 10 ML PO Every 8 hours 150 March 24, 2024 12:00am Problems Active Problems Problem Classification Problem Date Documented Da te Episodic/Chronic Chronic obstructive pulmonary disease and bronchiectasis (2 sources) Bronchitis; Translations: [Bronchitis, not specified as acute or chronic] 04-21-2024 Episodic Immunizations and screening for infectious disease (4 sources) Encounter for immunization; Translations: [ENCOUNTER FOR IMMUNIZATION] Onset: 04-12-2021 Episodic Other lower respiratory disease (2 sources) Unspecified acute lower respiratory infection; Translations: [Other diseases of respiratory system, not elsewhere classified] 03-24-2024 Episodic Other screening for suspected conditions (not mental disorders or infectious disease) (4 sources) Patient encounter status; Translations: [Encounter for screening mammogram for malignant neoplasm of breast] 03-25-2024 Episodic Residual codes; unclassified (2 sources) Menopause present; Translations: [Asymptomatic menopausal state] 03-25-2024 Episodic Residual codes; unclassified (2 sources) Asymptomatic menopausal state; Translations: [Symptomatic menopausal or [...] Results Test Name Value Interpretation Reference Range Facility Basophils Auto (Bld) [#/Vol] on 04-13-2024 Basophils (Bld) [#/Vol] Automated basophil count 0.0-0.1 [facility] Basophils/100 WBC Auto (Bld) on 04-13-2024 Basophils/100 WBC (Bld) Automated basophil % 0.2-2.0 [facility] Eosinophils/100 WBC Auto (Bl d)on 04-13-2024 Eosinophils/100 WBC (Bld) Automated eosinophil % High 0.9-7.0 [facility] Erythrocyte distribution wid th Auto (RBC) [Ratio]on 04-13-2024 Erythrocyte distribution width (RBC) [Ratio] Erythrocyte distribution width [Ratio] by Automated count 11.0-15.0 [facility] Estimated glomerular filtrat ion rate (GFR) non- Americanon 04-13-2024 GFR/1.73 sq M.predicted among non-blacks MDRD (S/P/Bld) [Vol rate/Area] Estimated glomerular filtration rate (GFR) non- >=60 mL/min/1.73m 2 [facility] Fibrin D-dimer [Presence] in Platelet poor plasma by Latex agglutinationon 04-13-2024 Fibrin D-dimer LA Ql (PPP) Fibrin D-dimer [Presence] in Platelet poor plasma by Latex agglutination <=0.59 [facility] Comment on above: Increases in D-Dimer concentration observed withthromboembolic events can be variable due to localization,size, and age of the thrombus. Therefore, a thromboembolicevent cannot be diagnosed with certainty on the basis of thereference range. D-Dimers may also be elevated for a varietyof disorders including advanced age, , coronarydisease, cancer, liver disease, infection, inflammation,hematoma, DIC, trauma, post-surgery, diabetes, thrombolyticor anticoagulant therapy, stress, and generalizedhospitalization. Globulin Calc (S) [Mass/Vol] on 04-13-2024 Globulin (S) [Mass/Vol] Serum globulin measurement by calculation (mass/volume) [facility] Hematocrit Auto (Bld) [Volum e fraction]on 04-13-2024 Hematocrit (Bld) [Volume fraction] Hematocrit [Volume Fraction] of Blood by Automated count 36.0-48.0 [facility] Hemoglobin [Mass/volume] in Bloodon 04-13-2024 Hemoglobin (Bld) [Mass/Vol] Hemoglobin [Mass/volume] in Blood 12.0-16.0 [facility] Laboratory - Chemistry and C hemistry - challengeon 04-13-2024 Albumin [Mass/Vol] 3.6 g/dL 3.4-5.0 [facility] ALP [Catalytic activity/Vol] 69 U/L 46-116 [facility] ALT [Catalytic activity/Vol] 21 U/L 14-59 [facility] AST [Catalytic activity/Vol] 14 U/L Low 15-37 [facility] Bilirubin [Mass/Vol] 0.3 mg/dL 0.2-1.0 [facility] Calcium [Mass/Vol] 9.4 mg/dL 8.5-10.1 [facility] Chloride [Moles/Vol] 109 mmol/L High 98-107 [facility] CO2 [Moles/Vol] 27.5 mmol/L 21.0-32.0 [facility] Creatinine [Mass/Vol] 0.86 mg/dL 0.55-1.02 [facility] GFR/1.73 sq M.predicted MDRD (S/P/Bld) [Vol rate/Area] mL/min/{1.73_m2} >=60 mL/min/1.73m 2 [facility] Glucose [Mass/Vol] 97 mg/dL 74-106 [facility] Natriuretic peptide B (Bld) [Mass/Vol] 60.0 pg/mL <=900.0 [facility] Potassium [Moles/Vol] 4.3 mmol/L 3.5-5.1 [facility] Protein [Mass/Vol] 7.0 g/dL 6.4-8.2 [facility] Sodium [Moles/Vol] 145 mmol/L 136-145 [facility] Urea nitrogen [Mass/Vol] 11.0 mg/dL 7.0-18.0 [facility] Urea nitrogen/Creatinine [Mass ratio] 12.8 mg/mg [facility] Laboratory - Hematology and Cell countson 04-13-2024 Immature granulocytes/100 WBC (Bld) 0.0 % 0.0-0.5 [facility] Leukocytes [#/volume] correc gurmeet for nucleated erythrocytes in Blood by Automated counon 04-13-2024 WBC corrected for nucl RBC Auto (Bld) [#/Vol] Leukocytes [#/volume] corrected for nucleated erythrocytes in Blood by Automated coun 4.0-11.0 [facility] Lymphocytes Auto (Bld) [#/Vo l]on 04-13-2024 Lymphocytes (Bld) [#/Vol] Lymphocytes [#/volume] in Blood by Automated count 1.2-3.8 [facility] Lymphocytes/100 WBC Auto (Bl d)on 04-13-2024 Lymphocytes/100 WBC (Bld) Lymphocytes/100 leukocytes in Blood by Automated count 20.5-60.0 [facility] MCH Auto (RBC) [Entitic mass ]on 04-13-2024 MCH (RBC) [Entitic mass] MCH [Entitic mass] by Automated count 26.7-34.0 [facility] MCHC Auto (RBC) [Mass/Vol]on 04-13-2024 MCHC (RBC) [Mass/Vol] MCHC [Mass/volume] by Automated count 29.9-35.2 [facility] MCV Auto (RBC) [Entitic vol] on 04-13-2024 MCV (RBC) [Entitic vol] MCV [Entitic volume] by Automated count 81.0-99.0 [facility] Monocytes Auto (Bld) [#/Vol] on 04-13-2024 Monocytes (Bld) [#/Vol] Automated blood monocyte count 0.3-0.8 [facility] Monocytes/100 WBC Auto (Bld) on 04-13-2024 Monocytes/100 WBC (Bld) Automated monocyte % 1.7-12.0 [facility] Neutrophils Auto (Bld) [#/Vo l]on 04-13-2024 Neutrophils (Bld) [#/Vol] Neutrophils [#/volume] in Blood by Automated count 1.4-6.5 [facility] Neutrophils/100 WBC Auto (Bl d)on 04-13-2024 Neutrophils/100 WBC (Bld) Automated neutrophil % Low 43.0-75.0 [facility] No Panel Informationon 04-13 Eosinophils # (Auto) 0.6 10 3/uL 0.0-0.7 [facility] Immature Granulocyte # (Auto) 0.00 10 3/uL 0.00-0.03 [facility] Troponin I High Sensitivity 8.7 pg/mL 4.0-51.3 [facility] Comment on above: CUT-OFF POINTS HAVE BEEN ESTABLISHED BASED ON THE FOURTHIVERSAL DEFINITION OF MYOCARDIAL INFARCTION. THE UPPERREFERENCE LIMIT (URL) OF TROPONIN, DEFINED THE 99THPERCENTILE OF cTnI DISTRIBUTION IN A REFERENCE POPULATION,HAS BEEN CONFIRMED THE DECISION THRESHOLD FOR MIDIAGNOSIS.99TH PERCENTILE = 51.4 PG/MLNOTE: HIGH-SENSITIVITY TROPONIN ASSAY IS NOT INTENDED TO BEUSED IN ISOLATION BUT SHOULD BE INTERPRETED IN CONJUNCTIONWITH OTHER DIAGNOSTIC AND CLINICAL INFORMATION. Platelet mean volume Auto (B ld) [Entitic vol]on 04-13-2024 Platelet mean volume (Bld) [Entitic vol] Platelet mean volume [Entitic volume] in Blood by Automated count Low 9.5-13.5 [facility] Platelets Auto (Bld) [#/Vol] on 04-13-2024 Platelets (Bld) [#/Vol] Platelets [#/volume] in Blood by Automated count 150-450 [facility] RBC Auto (Bld) [#/Vol]on RBC (Bld) [#/Vol] Erythrocytes [#/volu me] in Blood by Automated count 4.20-5.40 [facility] Serum or plasma albumin/glob ulin mass ratioon 04-13-2024 Albumin/Globulin [Mass ratio] Serum or plasma albumin/globulin mass ratio [facility] Serum or plasma anion gap de terminationon 04-13-2024 Anion gap [Moles/Vol] Serum or plasma anion gap determination [facility] Covid-19 PCR (CVDTBH)on 03-11 SARS-CoV-2 (COVID-19) RNA LILLY+probe Ql (Unsp spec) Detected Critically abnormal NOT DETECTED [facility] Comment on above: Result Comment: This test is not yet approved or cleared by the [place] FDA. When there are no FDA-approved or cleared tests available, and other criteria are met, FDA can make tests available under an emergency access mechanism called an Emergency Use Authorization (EUA). The EUA for this test is supported by the [place] of Health and Human Service's (HHS's) declaration [...] longer be used). Performed By: #### [facility] #### [facility] [address] [place] [address] Dr. Vamshi Whittington Vital Signs Date Time Vital Sign Value Performing Clinician Faci lity 04-21-2024 10:31-0500 Body height 172.72 cm [facility] 04-21-2024 10:31-0500 Body mass index (BMI) [Ratio] 21.6 kg/m2 [facility] 04-21-2024 10:31-0500 Body temperature 98.9 [degF] [facility] 04-21-2024 10:31-0500 Body weight 64.41 kg [facility] 04-21-2024 10:31-0500 Diastolic blood pressure 72 mm[Hg] [facility] 04-21-2024 10:31-0500 Heart rate 88 /min [facility] 04-21-2024 10:31-0500 SaO2% (BldA) [Mass fraction] 91 % [facility] 04-21-2024 10:31-0500 Systolic blood pressure 125 mm[Hg] [facility] 03-25-2024 08:16-0400 Body height 172.72 cm [facility] 03-25-2024 08:16-0400 Body mass index (BMI) [Ratio] 21.8 kg/m2 [facility] 03-25-2024 08:16-0400 Body weight 65.03 kg [facility] 03-25-2024 08:16-0400 Diastolic blood pressure 70 mm[Hg] [facility] 03-25-2024 08:16-0400 Heart rate 84 /min [facility] 03-25-2024 08:16-0400 Respiratory rate 16 /min [facility] 03-25-2024 08:16-0400 SaO2% (BldA) [Mass fraction] 97 % [facility] 03-25-2024 08:16-0400 Systolic blood pressure 130 mm[Hg] [facility] 03-24-2024 16:39-0400 Body height 172.72 cm [facility] 03-24-2024 16:39-0400 Body mass index (BMI) [Ratio] 22.2 kg/m2 [facility] 03-24-2024 16:39-0400 Body temperature 98.7 [degF] [facility] 03-24-2024 16:39-0400 Body weight 66.28 kg [facility] 03-24-2024 16:39-0400 Diastolic blood pressure 76 mm[Hg] [facility] 03-24-2024 16:39-0400 Heart rate 67 /min [facility] 03-24-2024 16:39-0400 Respiratory rate 18 /min [facility] 03-24-2024 16:39-0400 SaO2% (BldA) [Mass fraction] 95 % [facility] 03-24-2024 16:39-0400 Systolic blood pressure 126 mm[Hg] [facility] Encounters Encounter Date Encounter Type Care Provider Facility Start: 04-21-2024 End: 04-21-2024 ambulatory [facility] Work Phone: Start: 04-21-2024 End: 04-21-2024 Patient encounter procedure [facility] Work Phone: Start: 04-16-2024 Non-patient / Non-visit [facility] Work Phone: Start: 04-14-2024 Non-patient / Non-visit [facility] Work Phone: Start: 04-13-2024 Non-patient / Non-visit [facility] Work Phone: Start: 03-25-2024 End: 03-25-2024 ambulatory [facility] Work Phone: Start: 03-25-2024 End: 03-25-2024 Patient encounter procedure [facility] Work Phone: Start: 03-24-2024 End: 03-24-2024 ambulatory [facility] Work Phone: Start: 03-24-2024 End: 03-24-2024 Patient encounter procedure [facility] Work Phone: Start: 04-12-2021 End: 04-12-2021 ambulatory ROMELIA POZO Facility:[facility] Start: 03-28-2021 End: 03-28-[address] AMY ARCHIBALD Facility:[facility] Start: 03-22-2021 End: 03-22-[address] AMY ARCHIBALD Facility:[facility] Plan of Treatment Date Care Activity Detail Author DXA Skeletal system. axial Views for bone density [facility] enter MG Breast - bilateral Screening [facility] XR Chest 2 Views [facility] Payers Date Payer Category Payer Medicare [id number] 1955 Unknown [id number] 1955 Unknown [id number] 1955 Unknown [id number] Private Health Insurance [facility] [id number] Social History Date Type Detail Facility Tobacco smoking stat us NHIS Unknown if ever smoked [facility] Work Phone: Start: 1955 Sex Assigned At Female F [facility] Start: 03-25-2024 End: 03-25-2024 Tobacco smoking status NHIS Never smoked tobacco (finding) [facility] Start: 04-21-2024 Sex Female (finding) [facility] Evaluation note 03-24-2024 Note Date & Type Note Facility 03-24-2024 Evaluation note Diagnosis Onset Date Resolution Lower respiratory infection (e.g., bronchitis, pneumonia, pneumonitis, noneactive March 24 4:33pm Medicare annual wellness visit, subsequent acute March 25 11:25am Menopause acute March 25, 2024 11:25am Screening mammogram for breast cancer acute March 25 11:25am Bronchitis acute April 21, 2024 3:35pm [facility] Work Phone: Evaluation note Note Date & Type Note Facility Evaluation note No assessment information availa ble [facility] Work Phone: Evaluation note Note Date & Type Note Facility Evaluation note Diagnosis Onset Date [id number] noneactive Menopause acute Screening mammogram for breast cancer acute [facility] Work Phone: Summary Purpose Family History No Family History Records Found Advance Directives Advance Directive Response Recorded Date/ Time Advance Directives No March 24, 2024 4:12pm Advance Directive Response Recorded Date/ Time Advance Directives No March 24, 2024 3:12pm Chief Complaint and Reason for Visit Chief Complaint cough(2 weeks) Chief Complaint cough(2 weeks) wellness/re-establish Reason for Visit [id number] Menopause Screening mammogram for breast cancer Chief Complaint Admit Date cough(2 weeks) March 24, 2024 4 :33pm wellness/re-establish March 25, 2024 11:25am Amb Documentation April 14, 2024 3 :21pm CC Adult Risk Stratification April 12:03pm ER f/u:Bronchitis April 21, 2024 3:35pm Reason for Visit Admit Date Lower respiratory infection (e.g., bronchitis, pneumonia, pneumonitis, March 24, 2024 4:33pm Medicare annual wellness visit, damir nt March 25, 2024 11:25am Menopause March 25, 2024 1 1:25am Screening mammogram for breast cancer O[facility] tober 2023 11:25am Bronchitis April 21, 2024 3:35pm Additional Source Comments INFORMATION SOURCE (unrecogn ized section and content) DATE CREATED AUTHOR 04/25/2021 [facility] Care Teams (unrecognized sec tion and content) Team Status: Active Member Role Status Dates NON STAFF Primary Care Provider Active Team Status: Inactive Member Role Status Dates Ariana Aceves APRN Attending Provider Active Start: March 24, 2024 End: March 24, 2024 NON STAFF Primary Care Provider Active Start: March 24, 2024 End: March 24, 2024 Team Status: Inactive Member Role Status Dates Amy Archibald MD Attending Provider Active St art: March 25, 2024 End: March 25, 2024 NON STAFF Primary Care Provider Active Start: March 25, 2024 End: March 25, 2024 Team Status: Active Member Role Status Dates NON STAFF Primary Care Provider Active Start: April 13, 2024 Adelaida Bravo DO Attending Provider Active Start: April 13, 2024 Team Status: Active Member Role Status Dates NON STAFF Primary Care Provider Active Start: April 14, 2024 Alberta Logan CMA Attending Provider Active Start: April 14, 2024 Team Status: Active Member Role Status Dates NON STAFF Primary Care Provider Active Start: April 16, 2024 Amy Archibald MD Attending Provider Active St art: April 16, 2024 Team Status: Inactive Member Role Status Dates NON STAFF Primary Care Provider Active Start: April 21, 2024 End: April 21, 2024 Amy Archibald MD Attending Provider Active St art: April 21, 2024 End: April 21, 2024 Goals (unrecognized section and content) Goals may be documented in a n alternate sectionGoals may be documented in an alternate sectionGoals may be documented in an [...] BE BASED ON THE PRIMARY CLINICAL RECORDS. [facility]. provides no warranty or guarantee of the accuracy or completeness of information in this document.
== END 2024-05-15 09:24 | disposition home or self-care (01) ==
LOC: CT 09:23
PROVIDERS: PCP Family Medicine; Visit Provider Family Medicine
DX: J40 Bronchitis, not specified as acute or chronic (principal); R91.8 Other nonspecific abnormal finding of lung field
CPT/HCPCS: 71250

== ENCOUNTER 2024-06-12 15:16 | Outpatient (OUT) | payer MEDICARE, OTHER, SELFPAY ==
--- OUTSIDE RECORDS SUMMARY | 2024-06-12 15:35 | XMS_ITS | CCD ---
Author Organization [facility] InformFormerly [facility] Care Team Providers Care Bartenders Name Role Phone ROMELIA POZO Admitting Unavailable EMMETT, DR AMY Hauser Primary Care Unavailable ROMELIA POZO Attending Unavailable ROMELIA POZO Consulting Unavailable EMMETT, DR AMY Hauser Primary Care Unavailable ROMELIA POZO Attending Unavailable ROMELIA POZO Consulting Unavailable ROMELIA POZO Admitting Unavailable EMMETT, DR AMY Hauser Attending Unavailable EMMETT, DR AMY Hauser Consulting Unavailable EMMETT, DR AMY Hauser Primary Care Unavailable DR AMY ARCHIBALD Admitting Unavailable Amy Archibald Attending Unavailable Amy Archibald Primary Care Unavailable Amy Archibald Admitting Unavailable Medications Current Medications Medication Drug Class(es) Dates Sig (Normalized) Sig (Original) [id number] 200 actuat albuterol 0.09 mg/actuat metered dose [...] tablet Active 20 MG PO Twice daily 03 15April 21, 2024 4:03pm Completed/Discontinued Medications Medication Drug [...] hours 42 March 24, 2024 12:00am Pyrilamine-Dextromethorphan ([place] Dm) 7.5-7.5 mg/5 mL liquid (2 sources) Start: 03-24-2024 End: 04-21-2024 take 1 mL by mouth every eight hours Pyrilamine-Dextromethorphan ([place] Dm) 7.5-7.5 mg/5 mL liquid Discontinued 10 ML PO Every 8 hours 150 March 23, 2024 11:00pm April 21, 2024 3:47pm Start: 03-24-2024 take 1 mL by mouth every eight hours Pyrilamine-Dextromethorphan ([place] Dm) 7.5-7.5 mg/5 mL liquid Active 10 ML PO Every 8 hours 150 March 24, 2024 12:00am Problems Active Problems Problem Classification Problem Date Documented Da te Episodic/Chronic Acute bronchitis (1 source) Acute bronchitis, unspecified; Translations: [Acute bronchitis, unspecified] Onset: 05-26-2024 Episodic Chronic obstructive pulmonary disease and bronchiectasis (2 [...] Basophils (Bld) [#/Vol] Automated basophil count 0.0-0.1 [facility] Basophils/100 WBC Auto (Bld) on 04-13-2024 Basophils/100 WBC (Bld) Automated basophil % 0.2-2.0 [facility] Eosinophils/100 WBC Auto (Bl d)on 04-13-2024 Eosinophils/100 WBC (Bld) Automated eosinophil % High 0.9-7.0 [facility] Erythrocyte distribution wid th Auto (RBC) [Ratio]on 04-13-2024 Erythrocyte distribution width (RBC) [Ratio] Erythrocyte distribution width [Ratio] by Automated count 11.0-15.0 [facility] Estimated glomerular filtrat ion rate (GFR) non- Americanon 04-13-2024 GFR/1.73 sq M.predicted among non-blacks MDRD (S/P/Bld) [Vol rate/Area] Estimated glomerular filtration rate (GFR) non- >=60 mL/min/1.73m 2 [facility] Fibrin D-dimer [Presence] in Platelet poor plasma by Latex agglutinationon 04-13-2024 Fibrin D-dimer LA Ql (PPP) Fibrin D-dimer [Presence] in Platelet poor plasma by Latex agglutination <=0.59 [facility] Comment on above: Increases in D-Dimer concentration [...] [Mass/Vol] Serum globulin measurement by calculation (mass/volume) [facility] Hematocrit Auto (Bld) [Volum e fraction]on 04-13-2024 Hematocrit (Bld) [Volume fraction] Hematocrit [Volume Fraction] of Blood by Automated count 36.0-48.0 [facility] Hemoglobin [Mass/volume] in Bloodon 04-13-2024 Hemoglobin (Bld) [Mass/Vol] Hemoglobin [Mass/volume] in Blood 12.0-16.0 [facility] Laboratory - Chemistry and C hemistry - challengeon 04-13-2024 Albumin [Mass/Vol] 3.6 g/dL 3.4-5.0 [facility] ALP [Catalytic activity/Vol] 69 U/L 46-116 [facility] ALT [Catalytic activity/Vol] 21 U/L 14-59 [facility] AST [Catalytic activity/Vol] 14 U/L Low 15-37 [facility] Bilirubin [Mass/Vol] 0.3 mg/dL 0.2-1.0 [facility] Calcium [Mass/Vol] 9.4 mg/dL 8.5-10.1 [facility] Chloride [Moles/Vol] 109 mmol/L High 98-107 [facility] CO2 [Moles/Vol] 27.5 mmol/L 21.0-32.0 [facility] Creatinine [Mass/Vol] 0.86 mg/dL 0.55-1.02 [facility] GFR/1.73 sq M.predicted MDRD (S/P/Bld) [Vol rate/Area] mL/min/{1.73_m2} >=60 mL/min/1.73m 2 [facility] Glucose [Mass/Vol] 97 mg/dL 74-106 [facility] Natriuretic peptide B (Bld) [Mass/Vol] 60.0 pg/mL <=900.0 [facility] Potassium [Moles/Vol] 4.3 mmol/L 3.5-5.1 [facility] Protein [Mass/Vol] 7.0 g/dL 6.4-8.2 [facility] Sodium [Moles/Vol] 145 mmol/L 136-145 [facility] Urea nitrogen [Mass/Vol] 11.0 mg/dL 7.0-18.0 [facility] Urea nitrogen/Creatinine [Mass ratio] 12.8 mg/mg [facility] Laboratory - Hematology and Cell countson 04-13-2024 Immature granulocytes/100 WBC (Bld) 0.0 % 0.0-0.5 [facility] Leukocytes [#/volume] correc gurmeet for nucleated erythrocytes in Blood by Automated counon 04-13-2024 WBC corrected for nucl RBC Auto (Bld) [#/Vol] Leukocytes [#/volume] corrected for nucleated erythrocytes in Blood by Automated coun 4.0-11.0 [facility] Lymphocytes Auto (Bld) [#/Vo l]on 04-13-2024 Lymphocytes (Bld) [#/Vol] Lymphocytes [#/volume] in Blood by Automated count 1.2-3.8 [facility] Lymphocytes/100 WBC Auto (Bl d)on 04-13-2024 Lymphocytes/100 WBC (Bld) Lymphocytes/100 leukocytes in Blood by Automated count 20.5-60.0 [facility] MCH Auto (RBC) [Entitic mass ]on 04-13-2024 MCH (RBC) [Entitic mass] MCH [Entitic mass] by Automated count 26.7-34.0 [facility] MCHC Auto (RBC) [Mass/Vol]on 04-13-2024 MCHC (RBC) [Mass/Vol] MCHC [Mass/volume] by Automated count 29.9-35.2 [facility] MCV Auto (RBC) [Entitic vol] on 04-13-2024 MCV (RBC) [Entitic vol] MCV [Entitic volume] by Automated count 81.0-99.0 [facility] Monocytes Auto (Bld) [#/Vol] on 04-13-2024 Monocytes (Bld) [#/Vol] Automated blood monocyte count 0.3-0.8 [facility] Monocytes/100 WBC Auto (Bld) on 04-13-2024 Monocytes/100 WBC (Bld) Automated monocyte % 1.7-12.0 [facility] Neutrophils Auto (Bld) [#/Vo l]on 04-13-2024 Neutrophils (Bld) [#/Vol] Neutrophils [#/volume] in Blood by Automated count 1.4-6.5 [facility] Neutrophils/100 WBC Auto (Bl d)on 04-13-2024 Neutrophils/100 WBC (Bld) Automated neutrophil % Low 43.0-75.0 [facility] No Panel Informationon 04-13 Eosinophils # (Auto) 0.6 10 3/uL 0.0-0.7 [facility] Immature Granulocyte # (Auto) 0.00 10 3/uL 0.00-0.03 [facility] Troponin I High Sensitivity 8.7 pg/mL 4.0-51.3 [facility] Comment on above: CUT-OFF POINTS HAVE BEEN ESTABLISHED BASED ON THE FOURTHUNIVERSAL DEFINITION OF MYOCARDIAL INFARCTION. THE UPPERREFERENCE LIMIT [...] in Blood by Automated count Low 9.5-13.5 [facility] Platelets Auto (Bld) [#/Vol] on 04-13-2024 Platelets (Bld) [#/Vol] Platelets [#/volume] in Blood by Automated count 150-450 [facility] RBC Auto (Bld) [#/Vol]on RBC (Bld) [#/Vol] Erythrocytes [#/volu me] in Blood by Automated count 4.20-5.40 [facility] Serum or plasma albumin/glob ulin mass ratioon 04-13-2024 Albumin/Globulin [Mass ratio] Serum or plasma albumin/globulin mass ratio [facility] Serum or plasma anion gap de terminationon 04-13-2024 Anion gap [Moles/Vol] Serum or plasma anion gap determination [facility] Covid-19 PCR (CVDTB)on 03-11 SARS-CoV-2 (COVID-19) RNA LILLY+probe Ql (Unsp spec) Detected Critically abnormal NOT DETECTED [facility] Comment on above: Result Comment: This test is not yet approved or cleared by the [place] FDA. When there are no FDA-approved or cleared tests available, and other criteria are met, FDA can make tests available under an emergency access mechanism called an Emergency Use Authorization (EUA). The EUA for this test is supported by the [place] of Health and Human Service's (HHS's) declaration [...] longer be used). Performed By: #### [facility] #### [facility] [address] [place] [address] Dr. Vamshi Whittington Vital Signs Date Time Vital Sign Value Performing Clinician Makii racquel 04-21-2024 10:31-0500 Body height 172.72 cm [facility] 04-21-2024 10:31-0500 Body mass index (BMI) [Ratio] 21.6 kg/m2 [facility] 04-21-2024 10:31-0500 Body temperature 98.9 [degF] [facility] 04-21-2024 10:31-0500 Body weight 64.41 kg [facility] 04-21-2024 10:31-0500 Diastolic blood pressure 72 mm[Hg] [facility] 04-21-2024 10:31-0500 Heart rate 88 /min [facility] 04-21-2024 10:31-0500 SaO2% (BldA) [Mass fraction] 91 % [facility] 04-21-2024 10:31-0500 Systolic blood pressure 125 mm[Hg] [facility] 03-25-2024 08:16-0400 Body height 172.72 cm [facility] 03-25-2024 08:16-0400 Body mass index (BMI) [Ratio] 21.8 kg/m2 [facility] 03-25-2024 08:16-0400 Body weight 65.03 kg [facility] 03-25-2024 08:16-0400 Diastolic blood pressure 70 mm[Hg] [facility] 03-25-2024 08:16-0400 Heart rate 84 /min [facility] 03-25-2024 08:16-0400 Respiratory rate 16 /min [facility] 03-25-2024 08:16-0400 SaO2% (BldA) [Mass fraction] 97 % [facility] 03-25-2024 08:16-0400 Systolic blood pressure 130 mm[Hg] [facility] 03-24-2024 16:39-0400 Body height 172.72 cm [facility] 03-24-2024 16:39-0400 Body mass index (BMI) [Ratio] 22.2 kg/m2 [facility] 03-24-2024 16:39-0400 Body temperature 98.7 [degF] [facility] 03-24-2024 16:39-0400 Body weight 66.28 kg [facility] 03-24-2024 16:39-0400 Diastolic blood pressure 76 mm[Hg] [facility] 03-24-2024 16:39-0400 Heart rate 67 /min [facility] 03-24-2024 16:39-0400 Respiratory rate 18 /min [facility] 03-24-2024 16:39-0400 SaO2% (BldA) [Mass fraction] 95 % [facility] 03-24-2024 16:39-0400 Systolic blood pressure 126 mm[Hg] [facility] Encounters Encounter Date Encounter Type Care Provider Facility Start: 05-26-2024 End: 05-26-2024 ambulatory Amy Archibald Facility:[facility] Start: 04-21-2024 End: 04-21-2024 ambulatory [facility] Work Phone: Start: 04-21-2024 End: 04-21-2024 Patient encounter procedure [facility] Work Phone: Start: 04-16-2024 Non-patient / Non-visit [facility] Work Phone: Start: 04-14-2024 Non-patient / Non-visit [facility] Work Phone: Start: 04-13-2024 Non-patient / Non-visit [facility] Work Phone: Start: 03-25-2024 End: 03-25-2024 ambulatory [facility] Work Phone: Start: 03-25-2024 End: 03-25-2024 Patient encounter procedure [facility] Work Phone: Start: 03-24-2024 End: 03-24-2024 ambulatory [facility] Work Phone: Start: 03-24-2024 End: 03-24-2024 Patient encounter procedure [facility] Work Phone: Start: 04-12-2021 End: 04-12-2021 ambulatory ROMELIA POZO Facility:[facility] Start: 03-28-2021 End: 03-28-[address] AMY ARCHIBALD Facility:[facility] Start: 03-22-2021 End: 03-22-[address] AMY ARCHIBALD Facility:[facility] Plan of Treatment Date Care Activity Detail Author DXA Skeletal system. axial Views for bone density [facility] enter MG Breast - bilateral Screening [facility] XR Chest 2 Views [facility] Payers Date Payer Category Payer Self-pay 2024 Private Health Insurance [id number] 1961 Medicare [id number] 1955 Unknown [id number] 1955 Unknown [id number] 1955 Unknown [id number] Unknown [id number] Social History Date Type Detail Facility Tobacco smoking stat us MIIS Unknown if ever smoked [facility] Work Phone: Start: 1955 Sex Assigned At Female F [facility] Start: 03-25-2024 End: 03-25-2024 Tobacco smoking status MIIS Never smoked tobacco (finding) [facility] Start: 04-21-2024 Sex Female (finding) [facility] Evaluation note 03-24-2024 Note Date & Type Note Facility 03-24-2024 Evaluation note Diagnosis Onset Date Resolution Lower respiratory infection (e.g., bronchitis, pneumonia, pneumonitis, noneactive March 24 4:33pm Medicare annual wellness visit, subsequent acute March 25 11:25am Menopause acute March 25, 2024 11:25am Screening mammogram for breast cancer acute March 25 11:25am Bronchitis acute April 21, 2024 3:35pm [facility] Work Phone: Evaluation note Note Date & Type Note Facility Evaluation note No assessment information availa ble [facility] Work Phone: Evaluation note Note Date & Type Note Facility Evaluation note Diagnosis Onset Date [id number] noneactive Menopause acute Screening mammogram for breast cancer acute [facility] Work Phone: Summary Purpose Family History No Family History Records FoundNo Family History Records Found Advance Directives No Advanced Directives Records Found Advance Directive Response Recorded Date/ Time Advance Directives No March 24, 2024 4:12pm Advance Directive Response Recorded Date/ Time Advance Directives No March 24, 2024 3:12pm Chief Complaint and Reason for Visit Chief Complaint cough(2 weeks) Chief Complaint cough(2 weeks) wellness/re-establish Reason for Visit [id number] Menopause Screening mammogram for breast cancer Chief Complaint Admit Date cough(2 weeks) March 24, 2024 4 :33pm wellness/re-establish March 25, 2024 11:25am Amb Documentation April 14, 2024 3 :21pm CC Adult Risk Stratification April 12:03pm ER f/u:Bronchitis April 21, 2024 3:35pm Reason for Visit Admit Date Lower respiratory infection (e.g., bronchitis, pneumonia, pneumonitis, March 24, 2024 4:33pm Medicare annual wellness visit, subseque nt March 25, 2024 11:25am Menopause March 25, 2024 1 1:25am Screening mammogram for breast cancer [facility] tober 2023 11:25am Bronchitis April 21, 2024 3:35pm Additional Source Comments INFORMATION SOURCE (unrecogn ized section and content) DATE CREATED AUTHOR 04/25/2021 [facility] DATE CREATED AUTHOR AUTHOR'S ORGANIZ ATION 06/01/2024 [facility] Care Teams (unrecognized sec tion and content) [...] BE BASED ON THE PRIMARY CLINICAL RECORDS. [employer] provides no warranty or guarantee of the accuracy or completeness of information in this document.
[2024-06-13 15:09] LABS: IgG, Subclass 1 340 mg/dL (248-810); IgG, Subclass 2 146 mg/dL (130-555); IgG, Subclass 3 67 mg/dL (15-102); IgG, Subclass 4 19 mg/dL (2-96); Immunoglobulin G, Qn, Serum 684 mg/dL (586-1602)
[2024-06-15 12:07] LABS: Immunoglobulin A, Qn, Serum 167 mg/dL (64-422); Immunoglobulin E, Total 9 IU/mL (6-495); Immunoglobulin M, Qn, Serum 92 mg/dL (26-217)
[2024-06-17 17:07] LABS: Aspergillus flavus Negative (Neg:<1:1); Aspergillus fumigatus Negative (Neg:<1:1); Aspergillus niger Negative (Neg:<1:1)
== END 2024-06-12 15:17 | disposition home or self-care (01) ==
LOC: LAB 15:16
PROVIDERS: PCP Family Medicine; Visit Provider Internal Medicine
DX: J47.9 Bronchiectasis, uncomplicated (principal)
CPT/HCPCS: 36415; 82784; 82785; 82787; 86606

== ENCOUNTER 2024-12-03 08:47 | Outpatient (OUT) | payer MEDICARE, OTHER, SELFPAY ==
--- OUTSIDE RECORDS SUMMARY | 2024-10-07 07:07 | XMS_ITS ---
Author Organization [facility] [place] Address [address] [place] [address] Care Team Providers Care Tobacco Warehouse Agent Name Role Phone Amy Archibald Primary Care Provider Raymundo Hendrix [phone] REASON FOR VISIT Appointment Encounters Encounter Location Date Provider Diagnosis [facility] [place] [address] [place] [address] 10/07/2024 Raymundo Monroe Plan Of Treatment No Information Progress Notes * Jessica GOLDSTEIN RDOB: [birth year] (69 yo F)Acc No.[id number]:10/07/2024 Patient: Lisy SHAWNCATHLEENJessica :1955 A ge:69 Y S ex:Female Address:[address] [place] [address] [facility] [id number] * true * Date: Generated for Itzel gallegos/Gisselle/eTransmitting on: 0 12/03/2024 08:54 AM EDT
--- OUTSIDE RECORDS SUMMARY | 2024-11-25 13:24 | XMS_ITS ---
Author Organization [facility] [place] Address [address] [place] [address] Care Team Providers Care Armature Inspector Name Role Phone Amy Archibald Primary Care Provider Raymundo Hendrix [phone] REASON FOR VISIT Appointment Encounters Encounter Location Date Provider Diagnosis [facility] [place] [address] [place] [address] 11/25/2024 Raymundo Monroe Plan Of Treatment No Information Progress Notes * Jessica GOLDSTEIN RDOB: [birth year] (69 yo F)Acc No.[id number]:11/25/2024 Patient: Lisy SHAWNCATHLEENJessica :1955 A ge:69 Y S ex:Female Address:[address] [place] [address] [facility] [id number] * true * Date: Generated for Itzel gallegos/Gisselle/eTransmitting on: 0 12/03/2024 08:52 AM EDT
--- OUTSIDE RECORDS SUMMARY | 2024-12-02 09:00 | XMS_ITS ---
Author Organization [facility] in [place] Address [address] [place] [address] Care Team Providers Care Contract Processor Name Role Phone Amy Archibald Primary Care Provider Raymundo Hendrix [phone] Allergies No Known Allergies REASON FOR VISIT F/U-EMPHYSEMA/AAT (FPG) Social History Tobacco Use: Social History Observation Description Date Details (start date - stop date) Never Smoker NA - NA Tobacco Control (Standard) Question Answer Notes Tobacco use: Nonsmoker Problems Problem Type SNOMED Code ICD Code Onset Dates Problem Status W/U Status Risk Notes Problem Multiple pulmonary nodules (840989641) Multiple pulmonary nodules (R91.8) Active confirmed Problem Late effect of foreign body in orifice (99383839) Unspecified foreign body in bronchus causing asphyxiation, sequela (T17.500S) Active confirmed Problem Uldtx-0-xnnpvmfvo in deficiency (18113661) 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 confirmed Problem Centrilobular emphysema (71233253) Centrilobular emphysema (J43.2) Active confirmed Problem Peripheral eosinophilia (D72.19) Active confirmed Problem Bronchiectasis (56513169) Bronchiectasis (J47.9) Active confirmed Problem Exposure to second hand tobacco smoke (event) (5244317011483844 3) Secondhand smoke exposure (Z77.22) Active confirmed Vital Signs Temperature 96.9 degrees Fahrenheit 12/03/19 25 Blood pressure systolic 123 mm Hg 12/03/19 25 Blood pressure diastolic 75 mm Hg 025 Heart Rate 68 /min 12/02/2024 Respiratory Rate 16 /min 12/02/2024 Height 68.0 in 12/02/2024 Weight 145.2 lbs 12/02/2024 BMI 22.08 kg/m2 12/02/2024 Oximetry 99 % 12/02/2024 Encounters Encounter Location Date Provider Diagnosis [facility] [address] [place] [address] 12/02/2024 Raymundo Monroe Unspecified foreign body in bronchus causing asphyxiation, sequela T17.500S and Multiple pulmonary nodules R91.8 Assessments Encounter Date Diagnosis (ICD Code) Assessment Notes Treatment Notes Treatment Clinical Notes Section Notes 12/02/2024 Unspecified foreign body in bronchus causing asphyxiation, sequela (ICD-10 - T17.500S) Abnormal CT chest 05/15/2024 with apparent mucus plugging. Etiology unclear. Currently asymptomatic. Was to have 6 month F/U CT chest done November, but unbeknownst to the patient and myself, we have no idea what [facility] did with the order. She is here today to review a CT chest that was never done. I am ordering a CT chest without contrast which is due now. I will contact her with the results. If it appears improved/resolve d, she likely will not require any F/U CT imaging - if so, her PCP can order a [address] chest w/o contrast F/U. If it is worse, then she will need further evaluation such as a bronchoscopy. If the former is true, then she may F/U PRN. 12/02/2024 Multiple pulmonary nodules (ICD-10 - R91.8) Small bilateral lower lobe 4mm or less nodules noted on CT chest 05/15/2024. No further F/U technically required according to current Fleischner Society Guidelines, though they will be evaluated on CT chest that is ordered. Plan Of Treatment Treatment Notes Assessment Notes Unspecified foreign body in bronchus causing asphyxiation, sequela Abnormal CT chest 05/15/2024 with apparent mucus plugging. Etiology unclear. Currently asymptomatic. Was to have 6 month F/U CT chest done November, but unbeknownst to the patient and myself, we have no idea what [facility] did with the order. She is here today to review a CT chest that was never done. I am ordering a CT chest without contrast which is due now. I will contact her with the results. If it appears improved/resolved, she likely will not require any F/U CT imaging - if so, her PCP can order a [address] chest w/o contrast F/U. If it is worse, then she will need further evaluation such as a bronchoscopy. If the former is true, then she may F/U PRN. Multiple pulmonary nodules Small bilateral lower lobe 4mm or less nodules noted on CT chest 05/15/2024. No further F/U technically required according to current Fleischner Society Guidelines, though they will be evaluated on CT chest that is ordered. Pending Test Test Name Order Date CT Chest w/o contrast 12/02/2024 Next Appt Details Follow Up: PRN, Reason: Procedure Notes * Category Sub-Category Detail Notes Alpha-1 Antitrypsin Screening Date: M/F Genotype: 06/02/2024 Progress Notes * Jessica GOLDSTEIN RDOB: [birth year] (69 yo F)Acc No.[id number]:12/02/2024 UNLOCKED PROGRESS NOTE Follow Up Patient: Jessica HUNT Provider: Lex Monroe DO :1955 A ge:69 Y S ex:Female Date:12/02/2024 Address:[address] [place] [address], [place], [id number] Pcp:Amy Archibald Check In:12:43 PM ESTCheck O ut:01:14 PM EST Subjective: * Chief Complaints: * 1 . F/U-EMPHYSEMA/AAT ([facility]). * HPI: G eneral: TRANSFER FROM [facility] Patient was seen by me @ [facility] pul[facility] on 06/02/2024 and 07/03/2024. S he had an abnormal CT chest 05/15/2024 which noted LLL mucus plugging and scattered BLL nodules, largest @ 4mm. CT chest for 6 month F/U was ordered @ [facility] on 06/02/2024, but the patient never heard anything about getting the F/U CT chest done - I have no idea what they did with the order, but the CT was never done. Patient states her breathing is doing well. She denies the cough which was her chief complaint. She eventually picked up the Dulera but only used it for a few weeks. She did not feel it helped her at all. Currently, she denies any dyspnea, coughing, or wheezing. She is on no medications at this current time. MA Intake Comments:. Patient presents for a follow-up for Emphysema. Patient was seen by at [facility] and requested a transfer to [facility]. Patient should have received an order from [facility] for a repeat CT Chest however no order was located. Patient denies any complaints or concerns with her breathing today. Patient states her cough has resolved, and she has started exercising/walking. Patient denies fevers, chills or night sweats. Patient is not using any medications at this time. * ROS: G eneral/Constitutional: Fever or sweats d enies. C hange of appetite d enies. C hills d enies. W eight Change d enies. H EENT: Dry mouth d enies. S ore throat d enies. O ral Ulcers d enies. P ost Nasal Drip D enies. C ongestion D enies. H oarseness?Denies. C ardiovascular: Tachycardia d enies. E kishore D enies. C hest pain d enies. P alpitations d enies. R espiratory: Chest tightness d enies. P leurisy D enies. D yspnea d enies. C ough d enies. H emoptysis d enies. W heezing d enies.? G astrointestinal: Acid Reflux/GERD/Heartburn d enies. D ysphagia d enies. M usculoskeletal: Arthralgias/joint pain D enies. S kin: Easy bruising d enies. R lindsay d enies. ? N eurologic: Seizures d enies. T remor d enies. H ematology: Abnormal Bleeding d enies. P sychiatric: Anxiety d enies. * Medical History: M ultiple pulmonary nodules, Unspecified foreign body in bronchus causing asphyxiation, sequela, AAT (ybbxn-7-yztqgyphakb) deficiency, Centrilobular emphysema, Peripheral eosinophilia, Bronchiectasis, Secondhand smoke exposure. * Surgical History: C holecystectomy , tonsillectomy . * Hospitalization/Major Diagno stic Procedure: D enies Past Hospitalization. * Family History: N on-Contributory. 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 D rugs/Alcohol: D rugs H ave you used drugs other than those for medical reasons in the past 12 months? N o D oes the Patient have a History of Drug Abuse in the Past? N o Caffeine I ntake: 1 -2 cups per day Coffee Do you drink alcohol?: No. Do you smoke marijuana?: Denies. * Medications: N one * Allergies: N .K.D.A. Objective: * Vitals: W t:145.2lbs, Ht:68.0in, BP:sittin/75mm Hg, Temp:Forehead:96.9F, HR:68/min, RR:16/min, BMI:22.08Index, Oxygen sat %:Room Air:99%, Ht-cm: 172.72 cm, Wt-k.86 kg. * Examination: E xam: GENERAL APPEARANCE: A ppears stated age. Skin N ormal. Mouth P ink and moist. Trachea M idline. Chest N ormal. Respiratory Normal M ovements, E ffort N ormal. Auscultation N ormal breath sounds. Cardiac R egular rate and rhythm. Gastrointestinal N ormal. Vascular N o edema. Musculoskeletal N ormal posture. Neurological F ocal, intact. Psychiatric A lert and oriented x3. Mentation/Cognition N ormal. Assessment: * Assessment: 1. U nspecified foreign body in bronchus causing asphyxiation, sequela - T17.500S (Primary)? 2. M ultiple pulmonary nodules - R91.8 Plan: * Treatment: 2. M ultiple pulmonary nodules I maging: CT Chest w/o contrast Notes: Small bilateral lower lobe 4mm or less nodules noted on CT chest 05/15/2024. No further F/U technically required according to current Fleischner Society Guidelines, though they will be evaluated on CT chest that is ordered. * Procedures: A lpha-1 Antitrypsin: Screening Date: . Genotype: 1 08/03/2023. * Preventive Medicine: COVID Vaccination: H as patient had COVID Vaccination? COVID Vaccination Y es 04/12/2021 Immunization Status: P neumovacc P t Refused. I nfluenza P t Refused. Screenings/Counseling: F ALL RISK SCREENING Fall Risk Assessment: N o falls in the past year Are you afraid of falling? N o T [employer]AN Exclusion: M edical Reason Non Smoker Type of Medical Reason: N ot indicated F RASHAUN EXCLUSION Reason: P atient Reason refused/declined Type of Patient Reason: D rug declined by patient * Follow Up: P RN * * Electronic signature of Emma Monroe , on 12/03/2024 at 08:54 AM EDT Sign off status: Pending Visit Status: C HK (Check Out) * Provider: Lex Monroe DO Date: 0 12/02/2024 Generated for Itzel gallegos/Gisselle/Sarojsmitting on: 0 12/03/2024 08:54 AM EDT History and Physical Notes * HPI (History of Present Illness) Category Sub-Category Detail Notes Category Not es General Patient present s for a follow-up for Emphysema. Patient was seen by at [facility] and requested a transfer to [facility]. Patient should have received an order from [facility] for a repeat CT Chest however no order was located. Patient denies any complaints or concerns with her breathing today. Patient states her cough has resolved, and she has started exercising/walking. Patient denies fevers, chills or night sweats. Patient is not using any medications at this time. Examination Category Sub-Category Detail Notes Category Not es Exam GENERAL APPEARANCE: Appears stated age Skin Normal Mouth [place] and moist Trachea Midline Chest Normal Respiratory Normal Movements, Ef fort Normal Auscultation Normal breath sounds Cardiac Regular rate and rhy thm Gastrointestinal Normal Vascular No edema Musculoskeletal Normal posture Neurological Focal, intact Psychiatric Alert and oriented x 3 Mentation/Cognition Normal
--- NOTE | 2024-12-03 08:51 | CT_ITS ---
The [address] [address] Patient Name: BROOKLYN APPLE MRN: [id number] date: 1955 Sex: F Assigned Patient Location: CT Current Patient Location: CT Accession/Order Number: [id number] Exam Date: 12/03/2024 09:10 Report Date: 12/03/2024 09:27 At the request of: NIKOLAI PRARISH DO Procedure: CT chest wo con CT CHEST WITHOUT CONTRAST COMPARISON: 05/15/2024 CLINICAL DATA: Follow-up pulmonary nodules. Spiral images were obtained through the chest without contrast. Images were reviewed using both narrow and wide window settings. This CT exam was performed using one or more following dose reduction techniques: Automated exposure control, adjustment of the mA and/or kV according to patient size, or use of iterative reconstruction technique. The heart is within normal limits for size. There is a trace amount of pericardial fluid. The ascending aorta is mildly ectatic. There is minor plaque at the aortic arch. There are nonpathologic mediastinal lymph nodes, largest in the precarinal and AP window region. There is mild heterogeneity at the thyroid lobes as well as a nearly 4 cm exophytic nodule off the inferior isthmus. Degenerative changes are visualized at the spine. There is minor apical scarring. No additional consolidation, pleural effusion or pneumothorax is seen. There are multiple tiny scattered pulmonary nodules, predominantly on the right. Comparison to the prior is slightly limited by respiratory motion at that time however these were present and are probably not significantly changed. Limited cuts through the upper abdomen show no contributory findings. CT/CT chest wo con IMPRESSION: MULTIPLE TINY PULMONARY NODULES, GREATER ON THE RIGHT, PROBABLY NOT SIGNIFICANTLY CHANGED WITHIN LIMITS OF RESPIRATORY MOTION ON THE PRIOR. THYROID NODULE. FOLLOW-UP ULTRASOUND IS SUGGESTED. NO OTHER ACUTE FINDINGS. Impression dictated by: Sandy Ahn M.D. 12/03/2024 9:27 AM Dictation Location: [place] [address] Electronically authenticated by: [id number] Y Date: 12/03/2024 09:27
--- OUTSIDE RECORDS SUMMARY | 2024-12-03 08:55 | XMS_ITS | Clinical Summary ---
Author Organization [facility] Address [id number] [address] [place] [address] Care Team Providers Care Stacker Tender Name Role Phone Unavailable Primary Care Provider Unavailabl e Social History Tobacco Use Types Packs/Day Years Used Date Smoking Tobacco: Never Assessed Childcare Answer Date Recorded Childcare Unknown 11/20/2018 Employment Answer Date Recorded Employment Unknown 11/20/2018 Comments Unknown Sex and Gender Information Value Date Recorded Sex Assigned at Not on file Legal Sex Female 8:15 AM EDT Gender Identity Not on file Sexual Orientation Not on file Plan of Treatment Health Maintenance Due Date Last Done Comments Depression Screening 1965 Tobacco Screening 1965 Adult BMI Screening 1971 DTaP,Tdap and Td Vaccines (1 - Tdap) 02/19/1972 Zoster (Shingles) Vaccine (1 of 2) 2003 Fall Risk Screening 2018 Influenza Vaccine 02/09/2025 Colonoscopy 08/09/2026 08/09/2016, 04/26/2016 Medical Devices Not on file Procedures Procedure Name Priority Date/Time Associated Diagnosis Comments COLONOSCOPY Routine 04/26/2016 from Last 3 Months or Most Recently Relevant to Health Maintenance Results * COLONOSCOPY (04/26/2016) Colonoscopy COLONOSCOPY MAN UALLY TRANSCRIBED RESULTS 04/26/2016 us Scanning Provider External HEALTH MAINTENANCE Ed ited Result - Final MANUALLY TRANSCRIBED RESULTS from Last 3 Months or Most Recently Relevant to Health Maintenance
--- OUTSIDE RECORDS SUMMARY | 2024-12-03 09:10 | XMS_ITS | CCD ---
Author Organization [facility] Team Providers Care Prenatal Nurse Name Role Phone ROMELIA POZO Admitting Unavailable [...] Drug Class(es) Dates Sig (Normalized) Sig (Original) [id number] 200 actuat albuterol 0.09 mg/actuat metered dose [...] hours 42 March 24, 2024 12:00am Pyrilamine-Dextromethorphan (Tererro Dm) 7.5-7.5 mg/5 mL liquid (2 sources) Start: 03-24-2024 End: 04-21-2024 take 1 mL by mouth every eight hours Pyrilamine-Dextromethorphan (Tererro Dm) 7.5-7.5 mg/5 mL liquid Discontinued 10 ML PO Every 8 hours 150 March 23, 2024 11:00pm April 21, 2024 3:47pm Start: 03-24-2024 take 1 mL by mouth every eight hours Pyrilamine-Dextromethorphan (Tererro Dm) 7.5-7.5 mg/5 mL liquid Active 10 [...] Basophils (Bld) [#/Vol] Automated basophil count 0.0-0.1 [facility] Basophils/100 WBC Auto (Bld) on 04-13-2024 Basophils/100 WBC (Bld) Automated basophil % 0.2-2.0 [facility] Eosinophils/100 WBC Auto (Bl d)on 04-13-2024 Eosinophils/100 WBC (Bld) Automated eosinophil % High 0.9-7.0 [facility] Erythrocyte distribution wid th Auto (RBC) [Ratio]on 04-13-2024 Erythrocyte distribution width (RBC) [Ratio] Erythrocyte distribution width [Ratio] by Automated count 11.0-15.0 [facility] Estimated glomerular filtrat ion rate (GFR) non- Americanon 04-13-2024 GFR/1.73 sq M.predicted among non-blacks MDRD (S/P/Bld) [Vol rate/Area] Estimated glomerular filtration rate (GFR) non- >=60 mL/min/1.73m 2 [facility] Fibrin D-dimer [Presence] in Platelet poor plasma by Latex agglutinationon 04-13-2024 Fibrin D-dimer LA Ql (PPP) Fibrin D-dimer [Presence] in Platelet poor plasma by Latex agglutination <=0.59 [facility] Comment on above: Increases in D-Dimer concentration [...] [Mass/Vol] Serum globulin measurement by calculation (mass/volume) [facility] Hematocrit Auto (Bld) [Volum e fraction]on 04-13-2024 Hematocrit (Bld) [Volume fraction] Hematocrit [Volume Fraction] of Blood by Automated count 36.0-48.0 [facility] Hemoglobin [Mass/volume] in Bloodon 04-13-2024 Hemoglobin (Bld) [Mass/Vol] Hemoglobin [Mass/volume] in Blood 12.0-16.0 [facility] Laboratory - Chemistry and C hemistry - challengeon 04-13-2024 Albumin [Mass/Vol] 3.6 g/dL 3.4-5.0 [facility] ALP [Catalytic activity/Vol] 69 U/L 46-116 [facility] ALT [Catalytic activity/Vol] 21 U/L 14-59 [facility] AST [Catalytic activity/Vol] 14 U/L Low 15-37 [facility] Bilirubin [Mass/Vol] 0.3 mg/dL 0.2-1.0 [facility] Calcium [Mass/Vol] 9.4 mg/dL 8.5-10.1 [facility] Chloride [Moles/Vol] 109 mmol/L High 98-107 [facility] CO2 [Moles/Vol] 27.5 mmol/L 21.0-32.0 [facility] Creatinine [Mass/Vol] 0.86 mg/dL 0.55-1.02 [facility] GFR/1.73 sq M.predicted MDRD (S/P/Bld) [Vol rate/Area] mL/min/{1.73_m2} >=60 mL/min/1.73m 2 [facility] Glucose [Mass/Vol] 97 mg/dL 74-106 [facility] Natriuretic peptide B (Bld) [Mass/Vol] 60.0 pg/mL <=900.0 [facility] Potassium [Moles/Vol] 4.3 mmol/L 3.5-5.1 [facility] Protein [Mass/Vol] 7.0 g/dL 6.4-8.2 [facility] Sodium [Moles/Vol] 145 mmol/L 136-145 [facility] Urea nitrogen [Mass/Vol] 11.0 mg/dL 7.0-18.0 [facility] Urea nitrogen/Creatinine [Mass ratio] 12.8 mg/mg [facility] Laboratory - Hematology and Cell countson 04-13-2024 Immature granulocytes/100 WBC (Bld) 0.0 % 0.0-0.5 [facility] Leukocytes [#/volume] correc gurmeet for nucleated erythrocytes in Blood by Automated counon 04-13-2024 WBC corrected for nucl RBC Auto (Bld) [#/Vol] Leukocytes [#/volume] corrected for nucleated erythrocytes in Blood by Automated coun 4.0-11.0 [facility] Lymphocytes Auto (Bld) [#/Vo l]on 04-13-2024 Lymphocytes (Bld) [#/Vol] Lymphocytes [#/volume] in Blood by Automated count 1.2-3.8 [facility] Lymphocytes/100 WBC Auto (Bl d)on 04-13-2024 Lymphocytes/100 WBC (Bld) Lymphocytes/100 leukocytes in Blood by Automated count 20.5-60.0 [facility] MCH Auto (RBC) [Entitic mass ]on 04-13-2024 MCH (RBC) [Entitic mass] MCH [Entitic mass] by Automated count 26.7-34.0 [facility] MCHC Auto (RBC) [Mass/Vol]on 04-13-2024 MCHC (RBC) [Mass/Vol] MCHC [Mass/volume] by Automated count 29.9-35.2 [facility] MCV Auto (RBC) [Entitic vol] on 04-13-2024 MCV (RBC) [Entitic vol] MCV [Entitic volume] by Automated count 81.0-99.0 [facility] Monocytes Auto (Bld) [#/Vol] on 04-13-2024 Monocytes (Bld) [#/Vol] Automated blood monocyte count 0.3-0.8 [facility] Monocytes/100 WBC Auto (Bld) on 04-13-2024 Monocytes/100 WBC (Bld) Automated monocyte % 1.7-12.0 [facility] Neutrophils Auto (Bld) [#/Vo l]on 04-13-2024 Neutrophils (Bld) [#/Vol] Neutrophils [#/volume] in Blood by Automated count 1.4-6.5 [facility] Neutrophils/100 WBC Auto (Bl d)on 04-13-2024 Neutrophils/100 WBC (Bld) Automated neutrophil % Low 43.0-75.0 [facility] No Panel Informationon 04-13 Eosinophils # (Auto) 0.6 10 3/uL 0.0-0.7 [facility] Immature Granulocyte # (Auto) 0.00 10 3/uL 0.00-0.03 [facility] Troponin I High Sensitivity 8.7 pg/mL 4.0-51.3 [facility] Comment on above: CUT-OFF POINTS HAVE BEEN [...] in Blood by Automated count Low 9.5-13.5 [facility] Platelets Auto (Bld) [#/Vol] on 04-13-2024 Platelets (Bld) [#/Vol] Platelets [#/volume] in Blood by Automated count 150-450 [facility] RBC Auto (Bld) [#/Vol]on RBC (Bld) [#/Vol] Erythrocytes [#/volu me] in Blood by Automated count 4.20-5.40 [facility] Serum or plasma albumin/glob ulin mass ratioon 04-13-2024 Albumin/Globulin [Mass ratio] Serum or plasma albumin/globulin mass ratio [facility] Serum or plasma anion gap de terminationon 04-13-2024 Anion gap [Moles/Vol] Serum or plasma anion gap determination [facility] Covid-19 PCR (CVDTB)on 03-11 SARS-CoV-2 (COVID-19) RNA LILLY+probe Ql (Unsp spec) Detected Critically abnormal NOT DETECTED [facility] Comment on above: Result Comment: This test is not yet approved or cleared by the [place] FDA. When there are no FDA-approved or cleared tests available, and other criteria are met, FDA can make tests available under an emergency access mechanism called an Emergency Use Authorization (EUA). The EUA for this test is supported by the [place] of Health and Human Service's (HHS's) declaration [...] longer be used). Performed By: #### C [facility] #### [facility] [address] [place] [address] Dr. Vamshi Whittington Vital Signs Date Time Vital Sign Value Performing Clinician Makii racquel 04-21-2024 10:31-0500 Body height 172.72 cm [facility] 04-21-2024 10:31-0500 Body mass index (BMI) [Ratio] 21.6 kg/m2 [facility] 04-21-2024 10:31-0500 Body temperature 98.9 [degF] [facility] 04-21-2024 10:31-0500 Body weight 64.41 kg [facility] 04-21-2024 10:31-0500 Diastolic blood pressure 72 mm[Hg] [facility] 04-21-2024 10:31-0500 Heart rate 88 /min [facility] 04-21-2024 10:31-0500 SaO2% (BldA) [Mass fraction] 91 % [facility] 04-21-2024 10:31-0500 Systolic blood pressure 125 mm[Hg] [facility] 03-25-2024 08:16-0400 Body height 172.72 cm [facility] 03-25-2024 08:16-0400 Body mass index (BMI) [Ratio] 21.8 kg/m2 [facility] 03-25-2024 08:16-0400 Body weight 65.03 kg [facility] 03-25-2024 08:16-0400 Diastolic blood pressure 70 mm[Hg] [facility] 03-25-2024 08:16-0400 Heart rate 84 /min [facility] 03-25-2024 08:16-0400 Respiratory rate 16 /min [facility] 03-25-2024 08:16-0400 SaO2% (BldA) [Mass fraction] 97 % [facility] 03-25-2024 08:16-0400 Systolic blood pressure 130 mm[Hg] [facility] 03-24-2024 16:39-0400 Body height 172.72 cm [facility] 03-24-2024 16:39-0400 Body mass index (BMI) [Ratio] 22.2 kg/m2 [facility] 03-24-2024 16:39-0400 Body temperature 98.7 [degF] [facility] 03-24-2024 16:39-0400 Body weight 66.28 kg [facility] 03-24-2024 16:39-0400 Diastolic blood pressure 76 mm[Hg] [facility] 03-24-2024 16:39-0400 Heart rate 67 /min [facility] 03-24-2024 16:39-0400 Respiratory rate 18 /min [facility] 03-24-2024 16:39-0400 SaO2% (BldA) [Mass fraction] 95 % [facility] 03-24-2024 16:39-0400 Systolic blood pressure 126 mm[Hg] [facility] Encounters Encounter Date Encounter Type Care Provider Facility Start: 05-26-2024 End: 05-26-2024 ambulatory Amy Archibald Facility:[facility] Start: 04-21-2024 End: 04-21-2024 ambulatory [facility] Work Phone: Start: 04-21-2024 End: 04-21-2024 Patient encounter procedure [facility] Work Phone: Start: 04-16-2024 Non-patient / Non-visit [facility] Work Phone: Start: 04-14-2024 Non-patient / Non-visit [facility] Work Phone: Start: 04-13-2024 Non-patient / Non-visit [facility] Work Phone: Start: 03-25-2024 End: 03-25-2024 ambulatory [facility] Work Phone: Start: 03-25-2024 End: 03-25-2024 Patient encounter procedure [facility] Work Phone: Start: 03-24-2024 End: 03-24-2024 ambulatory [facility] Work Phone: Start: 03-24-2024 End: 03-24-2024 Patient encounter procedure [facility] Work Phone: Start: 04-12-2021 End: 04-12-2021 ambulatory ROMELIA POZO Facility:[facility] Start: 03-28-2021 End: 03-28-[address] AMY ARCHIBALD Facility:[facility] Start: 03-22-2021 End: 03-22-[address] AMY ARCHIBALD Facility:[facility] Plan of Treatment Date Care Activity Detail Author DXA Skeletal system. axial Views for bone density [facility] enter MG Breast - bilateral Screening [facility] XR Chest 2 Views [facility] Payers Date Payer Category Payer Self-pay 2024 Private Health Insurance [id number] 1961 Medicare [id number] 1955 Unknown [id number] 1955 Unknown [id number] 1955 Unknown [id number] Unknown [id number] Social History Date Type Detail Facility Tobacco smoking stat us NVIS Unknown if ever smoked [facility] Work Phone: Start: 1955 Sex Assigned At Female F [facility] Start: 03-25-2024 End: 03-25-2024 Tobacco smoking status NVIS Never smoked tobacco (finding) [facility] Start: 04-21-2024 Sex Female (finding) [facility] Evaluation note 03-24-2024 Note Date & Type Note Facility 03-24-2024 Evaluation note Diagnosis Onset Date Resolution Lower respiratory infection (e.g., bronchitis, pneumonia, pneumonitis, noneactive March 24 4:33pm Medicare annual wellness visit, subsequent acute March 25 11:25am Menopause acute March 25, 2024 11:25am Screening mammogram for breast cancer acute March 25 11:25am Bronchitis acute April 21, 2024 3:35pm [facility] Work Phone: Evaluation note Note Date & Type Note Facility Evaluation note No assessment information availa ble [facility] Work Phone: Evaluation note Note Date & Type Note Facility Evaluation note Diagnosis Onset Date [id number] noneactive Menopause acute Screening mammogram for breast cancer acute [facility] Work Phone: Summary Purpose Family [...] Complaint cough(2 weeks) wellness/re-establish Reason for Visit [id number] Menopause Screening mammogram for breast cancer Chief [...] pital DATE CREATED AUTHOR AUTHOR'S ORGANIZ ATION 06/23/2024 [facility] Care Teams (unrecognized sec tion [...] BE BASED ON THE PRIMARY CLINICAL RECORDS. [employer] provides no warranty or guarantee of the accuracy or completeness of information in this document.
== END 2024-12-03 08:48 | disposition home or self-care (01) ==
LOC: CT 08:47
PROVIDERS: PCP Family Medicine; Visit Provider Internal Medicine
DX: R91.8 Other nonspecific abnormal finding of lung field (principal); T17.5 Foreign body in bronchus; E04.1 Nontoxic single thyroid nodule
CPT/HCPCS: 71250

== ENCOUNTER 2024-12-09 10:52 | Outpatient (OUT) | payer MEDICARE, OTHER, SELFPAY ==
--- OUTSIDE RECORDS SUMMARY | 2024-12-09 10:53 | XMS_ITS | Clinical Summary ---
Author Organization [facility] Address [id number] [address] [place] [address] Care Team Providers Care [employer] Name Role Phone Unavailable Primary Care Provider [...]
--- NOTE | 2024-12-09 10:54 | US_ITS ---
The [address] [address] Patient Name: BROOKLYN APPLE MRN: [id number] date: 1955 Sex: F Assigned Patient Location: [place] Current Patient Location: [place] Accession/Order Number: [id number] Exam Date: 12/09/2024 15:10 Report Date: 12/09/2024 15:12 At the request of: RAMON CHRISTINE MD Procedure: US thyroid Thyroid ultrasound Reason for exam: Nontoxic single thyroid nodule Comparison: none Technique: Grayscale and color Doppler images of the thyroid gland were obtained. Findings: The right lobe measures 5.9 x 2.2 x 2.2 cm. The left lobe measures 5.2 x 1.7 x 1.6 cm. The isthmus measures 6.7 mm. Multiple nodules are present largest involving the isthmus inferiorly measuring 42 x 41 x 24 mm which demonstrates solid and cystic components without microcalcification. Second largest is seen within the Mid aspect of the right lobe measuring 20 x 25 x 17 mm which demonstrates both solid and cystic components without microcalcification. US/US thyroid Impression: Evidence of multinodular goiter, largest nodule involving the isthmus measuring 42 x 41 x 24 mm. Second largest is seen involving the mid aspect of the right lobe measuring 20 x 25 x 17 mm. FNA should be contemplated. Impression dictated by: Jagjit Davenport Jr., D.O. 12/09/2024 3:12 PM Dictation Location: [place] [address] Electronically authenticated by: [id number] Y Date: 12/09/2024 15:12
--- OUTSIDE RECORDS SUMMARY | 2024-12-09 11:15 | XMS_ITS | CCD ---
Author Organization [facility] Providers Care [employer] Operator Name Role Phone ROMELIA POZO Admitting Unavailable [...] Drug Class(es) Dates Sig (Normalized) Sig (Original) [id number] 200 actuat albuterol 0.09 mg/actuat metered dose [...] hours 42 March 24, 2024 12:00am Pyrilamine-Dextromethorphan ([place] Dm) 7.5-7.5 mg/5 mL liquid (2 sources) Start: 03-24-2024 End: 04-21-2024 take 1 mL by mouth every eight hours Pyrilamine-Dextromethorphan ([place] Dm) 7.5-7.5 mg/5 mL liquid Discontinued 10 ML PO Every 8 hours 150 March 23, 2024 11:00pm April 21, 2024 3:47pm Start: 03-24-2024 take 1 mL by mouth every eight hours Pyrilamine-Dextromethorphan ([place] Dm) 7.5-7.5 mg/5 mL liquid Active 10 [...] Basophils (Bld) [#/Vol] Automated basophil count 0.0-0.1 [facility] Basophils/100 WBC Auto (Bld) on 04-13-2024 Basophils/100 WBC (Bld) Automated basophil % 0.2-2.0 [facility] Eosinophils/100 WBC Auto (Bl d)on 04-13-2024 Eosinophils/100 WBC (Bld) Automated eosinophil % High 0.9-7.0 [facility] Erythrocyte distribution wid th Auto (RBC) [Ratio]on 04-13-2024 Erythrocyte distribution width (RBC) [Ratio] Erythrocyte distribution width [Ratio] by Automated count 11.0-15.0 [facility] Estimated glomerular filtrat ion rate (GFR) non- Americanon 04-13-2024 GFR/1.73 sq M.predicted among non-blacks MDRD (S/P/Bld) [Vol rate/Area] Estimated glomerular filtration rate (GFR) non- >=60 mL/min/1.73m 2 [facility] Fibrin D-dimer [Presence] in Platelet poor plasma by Latex agglutinationon 04-13-2024 Fibrin D-dimer LA Ql (PPP) Fibrin D-dimer [Presence] in Platelet poor plasma by Latex agglutination <=0.59 [facility] Comment on above: Increases in D-Dimer concentration [...] [Mass/Vol] Serum globulin measurement by calculation (mass/volume) [facility] Hematocrit Auto (Bld) [Volum e fraction]on 04-13-2024 Hematocrit (Bld) [Volume fraction] Hematocrit [Volume Fraction] of Blood by Automated count 36.0-48.0 [facility] Hemoglobin [Mass/volume] in Bloodon 04-13-2024 Hemoglobin (Bld) [Mass/Vol] Hemoglobin [Mass/volume] in Blood 12.0-16.0 [facility] Laboratory - Chemistry and C hemistry - challengeon 04-13-2024 Albumin [Mass/Vol] 3.6 g/dL 3.4-5.0 [facility] ALP [Catalytic activity/Vol] 69 U/L 46-116 [facility] ALT [Catalytic activity/Vol] 21 U/L 14-59 [facility] AST [Catalytic activity/Vol] 14 U/L Low 15-37 [facility] Bilirubin [Mass/Vol] 0.3 mg/dL 0.2-1.0 [facility] Calcium [Mass/Vol] 9.4 mg/dL 8.5-10.1 [facility] Chloride [Moles/Vol] 109 mmol/L High 98-107 [facility] CO2 [Moles/Vol] 27.5 mmol/L 21.0-32.0 [facility] Creatinine [Mass/Vol] 0.86 mg/dL 0.55-1.02 [facility] GFR/1.73 sq M.predicted MDRD (S/P/Bld) [Vol rate/Area] mL/min/{1.73_m2} >=60 mL/min/1.73m 2 [facility] Glucose [Mass/Vol] 97 mg/dL 74-106 [facility] Natriuretic peptide B (Bld) [Mass/Vol] 60.0 pg/mL <=900.0 [facility] Potassium [Moles/Vol] 4.3 mmol/L 3.5-5.1 [facility] Protein [Mass/Vol] 7.0 g/dL 6.4-8.2 [facility] Sodium [Moles/Vol] 145 mmol/L 136-145 [facility] Urea nitrogen [Mass/Vol] 11.0 mg/dL 7.0-18.0 [facility] Urea nitrogen/Creatinine [Mass ratio] 12.8 mg/mg [facility] Laboratory - Hematology and Cell countson 04-13-2024 Immature granulocytes/100 WBC (Bld) 0.0 % 0.0-0.5 [facility] Leukocytes [#/volume] correc gurmeet for nucleated erythrocytes in Blood by Automated counon 04-13-2024 WBC corrected for nucl RBC Auto (Bld) [#/Vol] Leukocytes [#/volume] corrected for nucleated erythrocytes in Blood by Automated coun 4.0-11.0 [facility] Lymphocytes Auto (Bld) [#/Vo l]on 04-13-2024 Lymphocytes (Bld) [#/Vol] Lymphocytes [#/volume] in Blood by Automated count 1.2-3.8 [facility] Lymphocytes/100 WBC Auto (Bl d)on 04-13-2024 Lymphocytes/100 WBC (Bld) Lymphocytes/100 leukocytes in Blood by Automated count 20.5-60.0 [facility] MCH Auto (RBC) [Entitic mass ]on 04-13-2024 MCH (RBC) [Entitic mass] MCH [Entitic mass] by Automated count 26.7-34.0 [facility] MCHC Auto (RBC) [Mass/Vol]on 04-13-2024 MCHC (RBC) [Mass/Vol] MCHC [Mass/volume] by Automated count 29.9-35.2 [facility] MCV Auto (RBC) [Entitic vol] on 04-13-2024 MCV (RBC) [Entitic vol] MCV [Entitic volume] by Automated count 81.0-99.0 [facility] Monocytes Auto (Bld) [#/Vol] on 04-13-2024 Monocytes (Bld) [#/Vol] Automated blood monocyte count 0.3-0.8 [facility] Monocytes/100 WBC Auto (Bld) on 04-13-2024 Monocytes/100 WBC (Bld) Automated monocyte % 1.7-12.0 [facility] Neutrophils Auto (Bld) [#/Vo l]on 04-13-2024 Neutrophils (Bld) [#/Vol] Neutrophils [#/volume] in Blood by Automated count 1.4-6.5 [facility] Neutrophils/100 WBC Auto (Bl d)on 04-13-2024 Neutrophils/100 WBC (Bld) Automated neutrophil % Low 43.0-75.0 [facility] No Panel Informationon 04-13 Eosinophils # (Auto) 0.6 10 3/uL 0.0-0.7 [facility] Immature Granulocyte # (Auto) 0.00 10 3/uL 0.00-0.03 [facility] Troponin I High Sensitivity 8.7 pg/mL 4.0-51.3 [facility] Comment on above: CUT-OFF POINTS HAVE BEEN [...] in Blood by Automated count Low 9.5-13.5 [facility] Platelets Auto (Bld) [#/Vol] on 04-13-2024 Platelets (Bld) [#/Vol] Platelets [#/volume] in Blood by Automated count 150-450 [facility] RBC Auto (Bld) [#/Vol]on RBC (Bld) [#/Vol] Erythrocytes [#/volu me] in Blood by Automated count 4.20-5.40 [facility] Serum or plasma albumin/glob ulin mass ratioon 04-13-2024 Albumin/Globulin [Mass ratio] Serum or plasma albumin/globulin mass ratio [facility] Serum or plasma anion gap de terminationon 04-13-2024 Anion gap [Moles/Vol] Serum or plasma anion gap determination [facility] Covid-19 PCR (CVDTB)on 03-11 SARS-CoV-2 (COVID-19) RNA LILLY+probe Ql (Unsp spec) Detected Critically abnormal NOT DETECTED [facility] Comment on above: Result Comment: This test is not yet approved or cleared by the [place] FDA. When there are no FDA-approved or cleared tests available, and other criteria are met, FDA can make tests available under an emergency access mechanism called an Emergency Use Authorization (EUA). The EUA for this test is supported by the Rn Er of Health and Human Service's (HHS's) declaration [...] used). Performed By: #### C [facility] #### [facility] [address] [place] [address] Dr. Vamshi Whittington Vital Signs Date Time Vital Sign Value Performing Clinician Makii racquel 04-21-2024 10:31-0500 Body height 172.72 cm [facility] 04-21-2024 10:31-0500 Body mass index (BMI) [Ratio] 21.6 kg/m2 [facility] 04-21-2024 10:31-0500 Body temperature 98.9 [degF] [facility] 04-21-2024 10:31-0500 Body weight 64.41 kg [facility] 04-21-2024 10:31-0500 Diastolic blood pressure 72 mm[Hg] [facility] 04-21-2024 10:31-0500 Heart rate 88 /min [facility] 04-21-2024 10:31-0500 SaO2% (BldA) [Mass fraction] 91 % [facility] 04-21-2024 10:31-0500 Systolic blood pressure 125 mm[Hg] [facility] 03-25-2024 08:16-0400 Body height 172.72 cm [facility] 03-25-2024 08:16-0400 Body mass index (BMI) [Ratio] 21.8 kg/m2 [facility] 03-25-2024 08:16-0400 Body weight 65.03 kg [facility] 03-25-2024 08:16-0400 Diastolic blood pressure 70 mm[Hg] [facility] 03-25-2024 08:16-0400 Heart rate 84 /min [facility] 03-25-2024 08:16-0400 Respiratory rate 16 /min [facility] 03-25-2024 08:16-0400 SaO2% (BldA) [Mass fraction] 97 % [facility] 03-25-2024 08:16-0400 Systolic blood pressure 130 mm[Hg] [facility] 03-24-2024 16:39-0400 Body height 172.72 cm [facility] 03-24-2024 16:39-0400 Body mass index (BMI) [Ratio] 22.2 kg/m2 [facility] 03-24-2024 16:39-0400 Body temperature 98.7 [degF] [facility] 03-24-2024 16:39-0400 Body weight 66.28 kg [facility] 03-24-2024 16:39-0400 Diastolic blood pressure 76 mm[Hg] [facility] 03-24-2024 16:39-0400 Heart rate 67 /min [facility] 03-24-2024 16:39-0400 Respiratory rate 18 /min [facility] 03-24-2024 16:39-0400 SaO2% (BldA) [Mass fraction] 95 % [facility] 03-24-2024 16:39-0400 Systolic blood pressure 126 mm[Hg] [facility] Encounters Encounter Date Encounter Type Care Provider Facility Start: 05-26-2024 End: 05-26-2024 ambulatory Amy Archibald Facility:[facility] Start: 04-21-2024 End: 04-21-2024 ambulatory [facility] Work Phone: Start: 04-21-2024 End: 04-21-2024 Patient encounter procedure [facility] Work Phone: Start: 04-16-2024 Non-patient / Non-visit [facility] Work Phone: Start: 04-14-2024 Non-patient / Non-visit [facility] Work Phone: Start: 04-13-2024 Non-patient / Non-visit [facility] Work Phone: Start: 03-25-2024 End: 03-25-2024 ambulatory [facility] Work Phone: Start: 03-25-2024 End: 03-25-2024 Patient encounter procedure [facility] Work Phone: Start: 03-24-2024 End: 03-24-2024 ambulatory [facility] Work Phone: Start: 03-24-2024 End: 03-24-2024 Patient encounter procedure [facility] Work Phone: Start: 04-12-2021 End: 04-12-2021 ambulatory ROMELIA POZO Facility:[facility] Start: 03-28-2021 End: 03-28-[address] AMY ARCHIBALD Facility:[facility] Start: 03-22-2021 End: 03-22-[address] AMY ARCHIBALD Facility:[facility] Plan of Treatment Date Care Activity Detail Author DXA Skeletal system. axial Views for bone density [facility] enter MG Breast - bilateral Screening [facility] XR Chest 2 Views [facility] Payers Date Payer Category Payer Self-pay 2024 Private Health Insurance [id number] 1961 Medicare [id number] 1955 Unknown [id number] 1955 Unknown [id number] 1955 Unknown [id number] Unknown [id number] Social History Date Type Detail Facility Tobacco smoking stat us WIIS Unknown if ever smoked [facility] Work Phone: Start: 1955 Sex Assigned At Female F [facility] Start: 03-25-2024 End: 03-25-2024 Tobacco smoking status WIIS Never smoked tobacco (finding) [facility] Start: 04-21-2024 Sex Female (finding) [facility] Evaluation note 03-24-2024 Note Date & Type Note Facility 03-24-2024 Evaluation note Diagnosis Onset Date Resolution Lower respiratory infection (e.g., bronchitis, pneumonia, pneumonitis, noneactive March 24 4:33pm Medicare annual wellness visit, subsequent acute March 25 11:25am Menopause acute March 25, 2024 11:25am Screening mammogram for breast cancer acute March 25 11:25am Bronchitis acute April 21, 2024 3:35pm [facility] Work Phone: Evaluation note Note Date & Type Note Facility Evaluation note No assessment information availa ble [facility] Work Phone: Evaluation note Note Date & Type Note Facility Evaluation note Diagnosis Onset Date [id number] noneactive Menopause acute Screening mammogram for breast cancer acute [facility] Work Phone: Summary Purpose Family History [...] Complaint cough(2 weeks) wellness/re-establish Reason for Visit [id number] Menopause Screening mammogram for breast cancer Chief [...] CREATED AUTHOR AUTHOR'S ORGANIZ ATION 06/23/2024 [facility] Care Teams (unrecognized sec tion [...] BE BASED ON THE PRIMARY CLINICAL RECORDS. [employer] provides no warranty or guarantee of the accuracy or completeness of information in this document.
== END 2024-12-09 10:53 | disposition home or self-care (01) ==
LOC: US 10:52
PROVIDERS: PCP Family Medicine; Visit Provider Family Medicine
DX: E04.1 Nontoxic single thyroid nodule (principal); E04.2 Nontoxic multinodular goiter
CPT/HCPCS: 76536

== ENCOUNTER 2025-04-09 14:18 | Outpatient (OUT) | payer MEDICARE, OTHER, SELFPAY ==
--- OUTSIDE RECORDS SUMMARY | 2025-03-31 06:20 | XMS_ITS | Continuity of Care Document ---
Author Organization [facility] Address [address] [place] [address] Phone Care Team Providers Care Personal Investment Adviser Name Role Phone Amy Archibald MD Primary Care Provider Antonio Reynoso DO Attending Provider Amy Archibald MD Attending Provider Care Teams Patient Care Team Team Status: Active Member Role/Relationship Status Dates Amy Archibald MD Primary Care Provider Active Visit Care Team Team Status: Inactive Member Role/Relationship Status Dates Amy Archibald MD Primary Care Provider Active Start: December 31, 2024 End: December 31enantonio Murmonsek , DOAttending ProviderActiveStart: December 31, 2024 End: December 31, 2024 Visit Care Team Team Status: Inactive Member Role/Relationship Status Dates Amy Archibald MD Primary Care Provider Active Start: January 13, 2025 End: January 13enantonio Hassank , DOAttending ProviderActiveStart: January 13, 2025 End: January 13, 2025 Visit Care Team Team Status: Inactive Member Role/Relationship Status Dates Amy Archibald MD Primary Care Provider Active Start: 2025 End: February 18enantonio Murmonsek , DOAttending ProviderActiveStart: 2025 End: 2025 Patient Care Team Team Status: Inactive Member Role/Relationship Status Dates Amy Archibald MD Primary Care Provider Active Start: March 31, 2025 End: March 31, 2025Amy Archibald MDAttending ProviderActiveStart: March 31, 2025 End: March 31, 2025 Chief Complaint and Reason for Visit Chief Complaint Admit Date Multinodular Goiter December 31, 2024 10:4 0am Multinodular Goiter January 13, 2025 11: 07am E04.2 2025 10:13am Wellness March 31, 2025 9 :50am Reason for Visit Admit Date Menopause March 31, 2025 9 :50am Screening mammogram for breast cancer Oc 2024 9:50am Allergies, Adverse Reactions, Alerts Allergen Type Severity Reaction Last Updated Verified Status No Known Allergies Allergy Unknown March 31, 2025 8:34amYesActive Social History Smoking Status Status Start Date End Date Date of Observa tion Never smoked tobacco (finding) January 13, 2025 11:58am Observation Status Observation Response Date of Response Legal Sex Female (finding) Sex Assigned At BirthFemaleSeptember 1954 Family History Relationship Condition Age at Onset Recorded Date/T andreas Not Specified No pertinent family history Unknown Problems Active Problems Problem Diagnosis/Recorded Date Onset Date Stat Oswbb-7-opbgkfzofas deficiency July 03, 2024 12:4 3pm Unknown Active Peripheral eosinophilia June 02, 2024 11:56am Un known Active Bronchiectasis, uncomplicated June 02, 2024 11:5 6am Unknown Active Menopause March 25, 2024 11:46am Unknown A ctive Thyroid nodule December 03, 2024 11:08am Unknown Ac tive Mucus plugging of bronchi June 02, 2024 11:57am Unknown Active Centrilobular emphysema June 02, 2024 11:56am Un known Active Bronchiolitis May 16, 2024 10:34am Unknown Active Secondhand smoke exposure June 02, 2024 11:56am Unknown Active Multiple pulmonary nodules June 02, 2024 11:56am Unknown Active Bronchitis April 21, 2024 5:04pm Unknown A ctive Inactive/Resolved Problems Problem Diagnosis/Recorded Date Onset Date Stat us Medicare annual wellness vis it, subsequent March 25, 2024 12:17pm Unknown Resolved Screening mammogram for breast cancer March 25 11:46am Unknown Resolved Medications Medication Status Dose Units Route Directions Qty Days Refills S tart Date Stop Date End Date Reason(s) Instructions Adherence Prednisone mg tablet Discontinued 20 MG PO Twice daily 10 5 0 May 16, 2024 9:32am June 02, 2024 11:36amMometasone-Formoterol (Dulera) 100-5 mcg/actuation HFA aerosol urtvkfoXjgjyakhdjsf7NGCRGMSDNAKSVWKmtre lskob6720Cvivsvz 2024 8:42amJuly 2024 11:01amCentrilobular emphysema Centrilobular emphysemaRinse after useCalcium Carb, Citrate-Vit D3 (Citracal-D3 Slow Release) 600 mg-12.5 mcg (500 unit) tablet extended webldudDkoejs3FDNFQ DailyAugust 2024 12:00amComplies with drug therapyMultivitamin With Minerals ommbxszSbmplp2UNYQWUrksvMeer 2024 12:00amComplies with drug therapyMagnesium 200 mg jodmcyTcugoa575PCFPWwvbkTqcq 2024 12:00amComplies with drug therapyOmega 0-Asv-Prc-Fish Oil (Fish Oil) 1,000 (120-180) mg capsule Oveouw5ABVTDEvmrjMips 2024 12:00amComplies with drug therapyVitamin B Complex tzhhcbgKqyigm9RAMCHDlmaiXood 2024 12:00amComplies with drug therapyGarlic 1,000 mg azglzkhLwnrhn5632BYSZZwrexUlul 2024 12:00amComplies with drug therapyBenzonatate 200 mg onqaxrvRfpmdputimzj787OCAX0-3 TIMES PER DAY as needed for gwwln622Qhjkqdqx 2023 1:00amJuly 2024 11:01amCodeine- Guaifenesin 10-100 mg/5 mL lrupkeSzlfmsvexkmy0NVNQWvhgx 6 hours as needed for zpfrz28315Utvfjeob 2023 1:00amDecember 2023 11:36amBronchitis Bronchitis, not specified as acute or chronicAlbuterol Sulfate 90 mcg/actuation HFA aerosol vnqecrzGxvhnyozgron9PGMZHNSYPFQGQFQ0H as neededcember 2023 11:36amJuly 2024 11:01amMometasone-Formoterol (Dulera) 100-5 mcg/actuation HFA aerosol yhvajbnOpknuqhrbpgt2DAMKYAIIOPUBBVYiwsl xtnkb5247Neizarwa 23rd, 2024 1:00amDeceer 2023 12:00pmCentrilobular emphysema Centrilobular emphysemaRinse after useMometasone-Formoterol (Dulera) 100-5 mcg/actuation HFA aerosol liajtfbIahrvsgijhrd8EYMEOXRAIEPFEJCzcxh wbmug6060 June 02, 2024 12:00pmJanuary 2024 8:43amCentrilobular emphysema Centrilobular emphysemaRinse after useAmoxicillin 500 mg gnphyieXfpwxwpynqdo2349 MGPOEvery 8 tbirn1872Fdceqvr 2023 12:00amNove2023 4:47pm Prednisone 20 mg ttbwefOnlhjphkycii27BIMNAxlmd wmghb6778Sreznec 2023 12:00amNove2023 4:47pmAlbuterol Sulfate 90 mcg/actuation HFA aerosol oebdophTrksptvnmklm9OKSRJRFJHJMZKWP1V4022Rqnivcf 2023 12:00amDece2023 11:36amPyrilamine-Dextromethorphan ([place] Dm) 7.5-7.5 mg/5 mL liquid Tgwbiggjmspg48XAVXZrgdb 8 znwaz95452Joklhbz 2023 12:00amNove2023 4:47pmPrednisone 20 mg jxkbjgXuyofabfxuei02MXZFQxjmi cdlfp8496Obehrrwc 11th, 2024 5:03pmDece2023 3:31pmCefdinir 300 mg avmcqtgLeqkasomzkkc737 MGPOTwice yblrc156Takzgiad 11th, 2024 1:00amDece2023 3:31pm Levothyroxine 100 mcg svlmfyMsrnex455EWDOKJhowkPyybhfb 2024 12:00am Complies with drug therapy Immunizations Immunization Event Date Not Given Reason Dose Number Billing Services Manager Lot Number Reason(s) Given Vaccine Information Statement (VIS) Detail Administration Location COVID-19 Ivy Ojeda ([facility]) March 22, 2021 [id number] Rusty Ivy ([employer])April [id number] Procedures Procedure Date Performed Status OR Thyroidectomy/Hemithyroidectomy (Not Applicab le) January 13, 2025 1:00pm completed Relevant Diagnostic Tests and/or Laboratory Data Laboratory Results Test Collection Date/Time Result Date/Time Result Interpretation Reference Range Result Comment Performing Site Corrected White Blood Count December 31, 2024 11:30am December 31, 2024 11:54am 5.3 10*3/uL 3.8-11.6[facility] [id number] [address] [facility] [address]Fodtustezue WBC CountJuly 2024 11:30amJuly 2024 11:54am5.3 10*3/uL3.8-11.6FT[facility] [id number] [address] [place] [address] 22292Ufn Blood CountJuly 2024 11:30amJuly 2024 11:54am 4.50 10*6/uL3.60-5.00[facility] [id number] [address] [facility] 17669TukiztmyxkEnsd 2024 11:30amJuly 2024 11:54am12.7 g/dL11.8-15.4FT[facility] [id number] [address] [place] [address] 13557AhonsagqqrKpbq 2024 11:30amJuly 2024 11:54am37.2 % 34.0-46.4FT[facility] [id number] [address] [facility] 01881Xtlu Corpuscular VolumeJuly 2024 11:30amJuly 2024 11:54am82.8 cF21-492OoowhdmymLima [facility] [id number] [address] [facility] 30965Hxex Corpuscular HemoglobinJuly 2024 11:30amJuly 2024 11:54am28.3 pg24.7-34.3FTri[facility] [id number] [address] [facility] 756[address]Elbb Corpuscular Hemoglobin ConcentJuly 2024 11:30amJuly 2024 11:54am34.2 g/dL32.0-35.0[facility] [id number] [address] [facility] 817[address]Etw Cell Distribution WidthJuly 2024 11:30amJuly 2024 11:54am13.9 %11.9-15.3FT[facility] [id number] [address] [facility] 454[address]Pmxbslcb CountJuly 2024 11:30amJuly 2024 11:58lx646 10*3/eB863-550NajwodgrbLima [facility] [id number] [address] [facility] 96570Utgm Platelet VolumeJuly 2024 11:30amJuly 2024 11:54am7.4 fL6.3-10.7FTri[facility] [id number] [address] [facility] 62215Opmdkouhhzz (%) (Auto)December 31, 2024 11:30amJuly 2024 11:54am51.4 %.[facility] [id number] [address] [facility] 00489Lsbushopxvq (%) (Auto)December 31, 2024 11:30amJuly 2024 11:54am34.8 %.[facility] [id number] [address] [facility] 070[address]Faunbowrp (%) (Auto)December 31, 2024 11:30amJuly 2024 11:54am6.0 %.[facility] [id number] [address] [facility] 31276Fdisaabpyrh (%) (Auto)December 31, 2024 11:30amJuly 2024 11:54am6.5 %.[facility] [id number] [address] [facility] 89062Ylqbkbyfv (%) (Auto)December 31, 2024 11:30amJuly 2024 11:54am1.3 %.[facility] [id number] [address] [facility] 16586Hlbacylkl RBC Relative Count (auto)December 31, 2024 11:30amJuly 2024 11:54am0.0 /100{WBC}0-0.5FT[facility] [id number] [address] [place] [address] 76169Qmncfdqrcuu # (Auto)December 31, 2024 11:30amJuly 2024 11:54am2.7 10*3/uL1.8-7.7FT[facility] [id number] [address] [place] [address] 12904Mocpxplgzji # (Auto)December 31, 2024 11:30amJuly 2024 11:54am1.8 10*3/uL1.00-4.8[facility] [id number] [address] [place] [address] 69787Pnxfglkrh # (Auto)December 31, 2024 11:30amJuly 2024 11:54am0.3 10*3/uL0.0-0.8[facility] [id number] [address] [facility] 21714Vtrplssffid # (Auto)December 31, 2024 11:30amJuly 2024 11:54am0.3 10*3/uL0.0-0.45[facility] [id number] [address] [place] [address] 23667Sgbppcytl # (Auto)December 31, 2024 11:30amJuly 2024 11:54am0.1 10*3/uL0.0-0.2FT[facility] [id number] [address] [facility] 31128Pkypvuu LevelJuly 2024 11:30amJuly 2024 12:21pm90 mg/zM68-474PKM recommended reference rangeRandom Glucose Reference Range is dependent on time and content of last meal. Glucose of more than 200 mg/dL in a nonstressed, ambulatory subject supports the diagnosisof Diabetes Mellitus. [facility] [id number] [address] [facility] 40737Tlwjq Urea NitrogenJu2024 11:30amJuly 2024 12:21pm11 mg/dL7-25[facility] [id number] [address] [facility] 21095EnzdmfmpauJemx 2024 11:30amJuly 2024 12:21pm0.62 mg/dL0.60-1.20[facility] [id number] [address] [facility] 22353Kywfqnrog GFR (CKD-EPI)December 31, 2024 11:30amJuly 2024 12:21pm> 60.0 mL/MinLima Memorial Hospital [facility] [id number] [address] [facility] 95374Kyhumf LevelJuly 2024 11:30amJuly 2024 12:23ag255 mmol/J790-965OzatuxkluLima Memorial Hospital [facility] [id number] [address] [facility] 544[address]Foqvlsrmh LevelJuly 2024 11:30amJuly 2024 12:21pm 5.2 mmol/LAbove high normal3.5-5.1FT[facility] [id number] [address] [facility] 02559Ngtbhpvm LevelJuly 2024 11:30amJuly 2024 12:63jw933 mmol/J71-620FamtvdmloLima Memorial Hospital [facility] [id number] [address] [facility] 76849Vdmzpo Dioxide LevelJuly 2024 11:30amJuly 2024 12:21pm30.0 mmol/L21.0-31.0[facility] [id number] [address] [facility] [address]194Isusa GapJuly 2024 11:30amJuly 2024 12:21pm10.2 mEq/L6.0-15.0[facility] [id number] [address] [place] 5070870Calcium LevelJuly 2024 11:30amJuly 2024 12:21pm10.0 mg/dL8.6-10.3FT[facility] [id number] [address] [place] 5070870Calcium LevelAugust 2024 2:40pmAugust 2024 3:01pm8.9 mg/dL8.6-10.3FT[facility] [id number] [address] [facility] 21738Rfyxy ThyroxineJuly 2024 11:30amJuly 2024 12:32pm 7.81 ug/dL5.39-11.82[facility] [id number] [address] [facility] 48424Zorje ThyroxineSeptember 2024 10:34amSeptember 2024 12:02pm9.81 ug/dL5.39-11.82[facility] [id number] [address] [facility] 73575Duixq TriiodothyronineJuly 2024 11:30amJuly 2024 12:36pm1.19 ng/mL0.87-1.78[facility] [id number] [address] [facility] 534[address]Puods TriiodothyronineSept2024 10:34amSeptember 2024 12:05pm0.96 ng/mL0.87-1.78[facility] [id number] [address] [facility] 82136Iomcxnf Stimulating Hormone 3rd GenJuly 2024 11:30amJuly 2024 12:29pm0.60 u[iU]/mL0.45-5.33[facility] [id number] [address] [facility] 98081Nhuojhg Stimulating Hormone 3rd GenSeptember 2024 10:34am 2025 12:00pm0.55 u[iU]/mL0.45-5.33[facility] [id number] [address] [facility] 8096946-Crssyij Vitamin D TotalJuly 2024 11:30amJuly 2024 12:44pm33.4 ng/lX97-991QPCIKOD D STATUS 25(OH)VITAMIN D RANGE (ng/mL) Deficient <20 Insufficient 20 to <74Odclmdcktl96 to 100Reference: Manasa MF,Abdiel MCRAE, Fatou YOUNG, et al. Evaluation,treatment, and prevention of vitamin D deficiency; an Endocrine Society clinical practice guideline. JCEM. 2010; 96(7):1911-30.[facility] [id number] [address] [facility] 90148Berdekbpojd Hormone (Intact)December 31, 2024 11:30amJuly 2024 12:29pm30.9 pg/yQ97-55OewzqhawmLima Memorial Hospital [facility] [id number] [address] [facility] 32077Aicplhzyilv Hormone (Intact)January 13, 2025 2:40pmAugust 2024 3:20pm13.8 pg/wT27-14Gzoildopb[address] [place] [address] Ctr [id number] [address] [facility] 01246Rmztkejz Creatinine Clearance (ChemJuly 2024 11:30amJuly 2024 12:21pmN/AFTriHealth [facility] [id number] [address] [facility] [address] Vital Signs Vital Reading Result Reference Range Collection Date/Time Height 68 [in_i] January 13, 2025 11:40pfKnzlbp93.10 kgAugust 2024 11:58amBody Temperature 97.2 [degF]97.6-99.0August 2024 2:50pmHeart Rate78 /jns95-367Bviufd 2024 4:20pmRespiratory rate16 /tub33-54Otwvcc 2024 4:20pmOxygen saturation by Pulse zapktjgl45 %95-100August 2024 4:20pmBP Tpamdrqu428 mm[Hg]100-140 January 13, 2025 4:20pmBP Mziusvobf81 mm[Hg]60-100August 2024 4:20pmInhaled oxygen flow rate8 L/minAugust 2024 2:99lsHeajtk40 [in_i]March 31, 2025 8:84yjTvympk72.35 kgOctober 2024 8:34amHeart Rate80 /cdr64-932Swqodhs 2024 8:34amRespiratory rate14 /ipc29-23Zwszdqa 2024 8:34amOxygen saturation by Pulse ejxumoro320 %95-100Oct[facility] 2024 8:34amBP Vbkkzjbg808 mm[Hg]100-140Oct[facility] 2024 8:34amBP Buudxkmvv43 mm[Hg]60-100Oct[facility] 2024 8:34amBMI (Body Mass Index)22.6 kg/j8Eqeyugp 2024 8:34am Advance Directives Advance Directive Response Recorded Date/ Time Advance Directives No March 24, 2024 4:12pm Insurance Providers Guarantor Jessicaroderick Goldstein Address [address] [facility] [address]Zsviwai Info.Home Phone: Coverage Status Update:2024 Payer Group Member ID Coverage Type Subscriber Relationship to Subscriber Effective Date Expiration Date Medicare [id number] [place] Id: [id number] [address] [facility] [address] Home Phone: Email: [email or web address] [id number] [place] Id: [id number] [address] [facility] [address] Home Phone: Email: [email or web address] [place] Id: [id number] [address] [facility] [address] Home Phone: Email: [email or web address] Encounters Encounter Location(s) Arrival/Admit Date Discharge/Departure Date Discharge/Departure Disposition Provider(s) Departed Clinical -Pre-Surgica l Testing December 31, 2024 10:40am December 31, 2024 10:41am Discharged to home care or self care (routine discharge) Antonio Reynoso DO Departed Surgical Day Care -Surgery Center [facility] January 13, 2025 11:07am January 13, 2025 4:45pm Discharged to home care or self care (routine discharge) Antonio Reynoso DO Departed Clinical -Lab [facility] 2025 10:13am 2025 10:14am Discharged to home care or self care (routine discharge) Antonio Reynoso DO Departed Physician/ Provider Office Visit -[facility] March 31, 2025 9:50am March 31, 2025 10:18am Discharged to home care or self care (routine discharge) Amy Archibald MD Recent Diagnosis Onset Date Admit Date Menopause Unknown March 31 9:50am Screening mammogram for breast cancer Unknown March 31, 2025 9:50am Assessments Diagnosis Onset Date Resolution Status Admit Date Menopause acuteOctober 2024 9:50amScreening mammogram for breast cancerresolved March 31, 2025 9:50am Plan of Treatment Future Tests Future scheduled test information is unavailable Pending Tests Test Name Ordered Date Scheduled Date XR dexa axial skeleton March 31, 2025 10:10a m MM screening mammo BI w/CADOctober 2024 10:09am Future Visits Future appointment information is unavailable Future Procedures Procedure Name Ordered Date Scheduled Date Post Anesthesia Tracer order January 13, 2025 12 :33pm January 13, 2025 12:45pm Discharge Order January 13, 2025 2:06pm January 132024 2:06pm Future Medications Future medication information is unavailable Patient Instructions Instruction Admit Date Know your Meds January 13, 2025 11: 07am Goals Acute Goals Author Authored Date Experience reduced anxiety * Identifies current stressors * Develops effective coping behaviors * [facility] 5:00pmRemain free of complications [facility] 2024 5:00pmUnderstand preop/postop care/sensations * Verbalizes understanding of surgical procedure * Verbalizes understanding of sensations following surgery * Verbalizes understanding of post-op treatment planK[facility] 2024 5:00pmReport pain at tolerable level * Uses pain scale appropriately * Identify options for pain control - Analgesics - Narcotics - Non-medication measuresK[facility] 2024 5:00pmAbsence of imbalanced fluid volume s/s [facility] 2024 5:00pmAbsence of physical injury [facility] 2024 5:00pmAbsence of surgical site infection [facility]
--- OUTSIDE RECORDS SUMMARY | 2025-04-09 14:21 | XMS_ITS | Clinical Summary ---
Author Organization [facility] [employer] [facility] Address [id number] [place] [address] Care Team Providers Care Computer Operations Manager Name Role Phone Unavailable Primary Care Provider Unavailabl e Social History Tobacco UseTypesPacks/DayYears UsedDateSmoking Tobacco: Never AssessedChildcare AnswerDate VlafdvfyYasrjpqpyRooksxv50/12/2019EmploymentAnswerDate Recorded WsnoabapdlSuwltoj45/12/2019CommentsUnknownSex and Gender Information ValueDate RecordedSex Assigned at BirthNot on fileLegal PxlEkndna18/04/2016 8:15 AM EDTGender IdentityNot on fileSexual OrientationNot on file Plan of Treatment Health MaintenanceDue DateLast DoneCommentsDepression Mzgepxvqb81/10/1965Tobacco Toiwtsuej96/10/1965Adult BMI Vhomiunhv10/10/1971DTaP,Tdap and Td Vaccines (1 - Tdap)02/19/1972Zoster (Shingles) Vaccine (1 of 2)2003Fall Risk Screening 2018Influenza Maryosl83/01/7969Rwosyzmmymt90/01/202703/06/2016, 04/26/2016 Medical Devices Not on file Procedures Procedure NamePriorityDate/TimeAssociated DiagnosisCommentsHM COLONOSCOPYRoutine 04/26/2016 from Last 3 Months or Most Recently Relevant to Health Maintenance Results * COLONOSCOPY (04/26/2016)ComponentValueRef RangeTest MethodAnalysis Time Performed AtPathologist Signature ColonoscopyCOLONOSCOPYMANUALLY TRANSCRIBED RESULTSSpecimen (Source)Anatomical Location / LateralityCollection Method / VolumeCollection TimeReceived Time04/26/2016 Narrative Authorizing ProviderResult TypeResult StatusScanning Provider ExternalHEALTH MAINTENANCEEdited Result - FinalPerforming OrganizationAddressCity/State/ZIP CodePhone Number MANUALLY TRANSCRIBED RESULTS from Last 3 Months or Most Recently Relevant to Health Maintenance
--- OUTSIDE RECORDS SUMMARY | 2025-04-09 14:21 | XMS_ITS | Clinical Summary ---
Author Organization [facility] Address [address] [place] [address] Care Team Providers Care Painter And Decorator Name Role Phone Amy Archibald MD Primary Care Provider [phone] Allergies No known active allergies Medications MedicationSigDispense QuantityRefillsLast FilledStart DateEnd DateStatus levothyroxine (Synthroid) 100 MCG tablet Indications:S/P total thyroidectomyTake 1 tablet (100 mcg) by mouth in the morning. Take before meals. 60 tablet 01/13/2025tive levothyroxine (Synthroid) 100 MCG tablet Indications:Status post total thyroidectomyTake 1 tablet (100 mcg) by mouth in the morning. Take before meals. 90 tablet ctive Active Problems No known active problems Resolved Problems ProblemNoted DateDiagnosed DateResolved XudkBxpyr-4-tlpamszuwwk deficiency ronchiectasis, eqiqmvxpaoprh27 Qqlrethiotand76entrilobular Medicare annual wellness visit, hdgnhiqruw56Menopause Multiple pulmonary xlccnda40Peripheral ngixzoskltjq37Secondhand smoke zofhpkro94 Thyroid kxnuwk89 Encounters DateTypeDepartmentCare UiuzEqajrppzvas91/15/2025 4:00 PM EDTOffice Visit [facility] [address] [place] [address] Antonio Reynoso, DO Status post total thyroidectomy (Primary Dx)02/23/2025amboo flowsheet [facility] [address] [place] [address] Antonio Reynoso, 02/23/20256791Kzqyot52/12/2025 9:30 AM EDTOffice Visit [facility] [address] [place] [address] Antonio Reynoso, DO Status post total thyroidectomy (Primary Dx); Nontoxic multinodular mqijqv2301/20/2025amboo flowsheet [facility] [address] [place] [address] Antonio Reynoso, 01/20/20259906Cuvpxg20/05/2025 1:00 PM EDTProcedure Visit [facility] Antonio Reynoso, DO Nontoxic multinodular goiter (Primary Dx)01/13/2025External Result Encounter [facility] Unsolicited Antonio Reynoso, 01/13/2025External Result Encounter [facility] Unsolicited Antonio Reynoso, 01/13/2025Orders Only [facility] [address] [place] [id number] Antonio Reynoso, DO S/P total thyroidectomyfrom Last 3 Months Immunizations ImmunizationAdministration DatesNext DuePfizer Purple Cap SARS-CoV-2 Vaccination 04/12/2021,03/22/2021 Social History Tobacco UseTypesPacks/DayYears UsedDateSmoking Tobacco: NeverSmokeless Tobacco: Never Tobacco Cessation:Counseling Given: Not Answered Alcohol UseStandard Drinks/WeekCommentsNot Currently0 (1 standard drink = 0.6 oz pure alcohol)CommentsUnknownSex and Gender InformationValueDate Recorded Sex Assigned at BirthNot on fileLegal TxsIrczwi21/15/2023 7:27 PM EDTGender IdentityNot on fileSexual OrientationNot on file Last Filed Vital Signs Vital SignReadingTime TakenCommentsBlood Pressure--Pulse--Temperature-- Respiratory Rate--Oxygen Saturation--Inhaled Oxygen Concentration--Xigqtk59.8 kg (145 lb)02/23/2025 3:43 PM WRUYmlpco292.7 cm (5' 8 )02/23/2025 3:43 PM EDTBody Mass Index22.05002/23/2025 3:43 PM EDT Plan of Treatment Health MaintenanceDue DateLast DoneCommentsCT Mzkpjmrcvxjd1955Colonoscopy 3Colorectal Cancer Vwxpxqsel1955FIT-DNA1955FIT1955 FOBT1955 6662Mjhntrlbkazyn15/10/2282Fecbbaumk26/10/1993Influenza Vaccine (#1) 2025Pneumococcal Vaccine: 65+ MuwroTvmjpgucx51/18/2025 Procedures Procedure NamePriorityDate/TimeAssociated UkenhmjnqYpxuxgvkBWHOxsypth91/10/2025 10:34 AM EDT Nontoxic multinodular goiter T4 (THYROXINE), GOGIBRsmajwk38/10/2025 10:34 AM EDT Nontoxic multinodular goiter T3, NZWAPFxykcmv15/10/2025 10:34 AM EDT Nontoxic multinodular goiter PTH, INTACT WITHOUT FVLLORTZOKJ93/05/2025 2:40 PM EDT NDSRMNLDKJT02/05/2025 2:40 PM EDT from Last 3 Months Results * T3 (2025 10:34 AM EDT)ComponentValueRef RangeTest MethodAnalysis Time Performed AtPathologist SignatureTRIIODOTHYRONINE (T3) TOTAL0.960.87 - 1.78 ng/mL2025 12:05 PM EDOhio[facility] CtrSpecimen (Source) Anatomical Location / LateralityCollection Method / VolumeCollection Time Received TimeOtherTopography unknown / Nsjynvf7802/18/2025 10:34 AM EDT 2025 10:34 AM EDT Narrative Authorizing ProviderResult TypeResult StatusAntonio BOSTONAB BLOOD ORDERABLESFinal ResultPerforming OrganizationAddressCity/State/ZIP CodePhone Number [facility] [address] [place] [address], [facility] [address] [place] [address] * TSH (2025 10:34 AM EDT)ComponentValueRef RangeTest MethodAnalysis Time Performed AtPathologist SignatureTHYROID STIMULATING HORMONE0.550.45 - 5.33 u[iU]/mL2025 12:00 PM EDOhio[facility] CtrSpecimen (Source) Anatomical Location / LateralityCollection Method / VolumeCollection Time Received TimeOtherTopography unknown / Vrogizv0602/18/2025 10:34 AM EDT 2025 10:34 AM EDT Narrative Authorizing ProviderResult TypeResult StatusAntonio VÁSQUEZ BLOOD ORDERABLESFinal ResultPerforming OrganizationAddressCity/State/ZIP CodePhone Number [facility] [address] [place] [address], [facility] [address] [place] [address] * T4 (2025 10:34 AM EDT)ComponentValueRef RangeTest MethodAnalysis Time Performed AtPathologist SignatureTHYROXINE (T4) TOTAL9.815.39 - 11.82 ug/dL 2025 12:02 PM EDOhio[facility] CtrSpecimen (Source) Anatomical Location / LateralityCollection Method / VolumeCollection Time Received TimeOtherTopography unknown / Upqkvqm3502/18/2025 10:34 AM EDT 2025 10:34 AM EDT Narrative Authorizing ProviderResult TypeResult StatusAntonio Reynoso DOLAB BLOOD ORDERABLESFinal ResultPerforming OrganizationAddressCity/State/ZIP CodePhone Number [facility] [address] [place] [address], [facility] [address] [place] [address] * PTH, intact (01/13/2025 2:40 PM EDT)ComponentValueRef RangeTest MethodAnalysis TimePerformed AtPathologist SignaturePARATHYROID HORMONE DPWKUC37.812 - 88 pg/mL01/13/2025 3:20 PM EDOhioHealth [facility] CtrSpecimen (Source) Anatomical Location / LateralityCollection Method / VolumeCollection Time Received TimeOtherTopography unknown / Islgjbl3301/13/2025 2:40 PM EDT01/13/2025 2:44 PM EDT [facility] - 01/13/2025 3:20 PM EDT Comment Call to Dr. Reynoso Authorizing ProviderResult TypeResult StatusAntonio VÁSQUEZ BLOOD ORDERABLESFinal ResultPerforming OrganizationAddressCity/State/ZIP CodePhone Number [address] [place] [address], [facility] [address] [place] [address] * Calcium (01/13/2025 2:40 PM EDT)ComponentValueRef RangeTest MethodAnalysis TimePerformed AtPathologist SignatureCalcium8.98.6 - 10.3 mg/dL01/13/2025 3:01 PM [facility] CtrSpecimen (Source)Anatomical Location / LateralityCollection Method / VolumeCollection TimeReceived TimeOther Topography unknown / Gwfrdrk3401/13/2025 2:40 PM EDT01/13/2025 2:44 PM EDT [facility] - 01/13/2025 3:01 PM EDT Comment Called to Dr. Reynoso Authorizing ProviderResult TypeResult StatusAntonio Reynoso DOL BLOOD ORDERABLESFinal ResultPerforming OrganizationAddressty/State/ZIP CodePhone Number [address] [place] [address], [facility] [address] [place] [address] from Last 3 [place] [address] Care Teams Team MemberRelationshipSpecialtyStart DateEnd Date Amy Archibald MD [address] [place] [id number] PCP - GeneralFamily Medicine12/24/24
--- NOTE | 2025-04-09 14:22 | MM_ITS ---
Patient Name: BROOKLYN APPLE MR#: [id number] : 1955 Exam Date: 04/09/2025 Ordering Doctor: DR RAMON CHRISTINE M.D. RADIOLOGY REPORT PROCEDURE: MM TOMOSYNTHESIS SCREENING BI COMPARISON: MG MAMM SCREEN PRECIOUS W CAD, 08/06/2018. INDICATIONS: Screening Calculator Name NCI Breast Cancer Risk Assessment Tool 5 Year Breast Cancer Risk 2.40% Lifetime Breast Cancer Risk 6.30% Personal Breast Cancer No Personal Ovarian Cancer No Treatments None Family Cancers Mother with pancreas cancer at age 82. LOCATION: [facility] BREAST COMPOSITION: The breasts are heterogeneously dense, which may obscure small masses. FINDINGS: DIAGNOSTIC CATEGORY 1--NEGATIVE. RIGHT BREAST: No significant suspicious finding. LEFT BREAST: No significant suspicious finding. RECOMMENDATIONS: ROUTINE MAMMOGRAM AND CLINICAL EVALUATION IN 12 MONTHS. Dictated by: Jagjit Davenport DO on 04/09/2025 at 15:58 Approved by: Jagjit Davenport DO on 04/09/2025 at 15:59
--- OUTSIDE RECORDS SUMMARY | 2025-04-09 14:35 | XMS_ITS | CCD ---
Author Organization [facility] Care Team Providers Care Correctional Case Manager Name Role Phone ROMELIA POZO Admitting Unavailable EMMETT, DR AMY Hauser Primary Care Unavailable ROMELIA POZO Attending Unavailable ROMELIA POZO Consulting Unavailable EMMETT, DR AMY Hauser Primary Care Unavailable ROMELIA POZO Attending Unavailable ROMELIA POZO Consulting Unavailable ROMELIA POZO Admitting Unavailable EMMETT, DR AMY aHuser Attending Unavailable EMMETT, DR AMY Hauser Consulting Unavailable EMMETT, DR AMY Hauser Primary Care Unavailable EMMETT, DR AMY Hauser Admitting Unavailable Amy Christine MD Primary Care Provider [phone] Amy Christine MD Attending Provider Amy Christine MD Primary Care Provider Antonio Reynoso DO Attending Provider Antonio Reynoso Admitting Unavailable Amy Christine Primary Care Unavailable Antonio Reynoso Attending Unavailable Amy Christine Primary Care Unavailable Antonio Reynoso Attending Unavailable Antonio Reynoso Admitting Unavailable Amy Christine Attending Unavailable Amy Christine Primary Care Unavailable Amy Christine Admitting Unavailable Amy Christine Primary Care Unavailable Antonio Reynoso Attending Unavailable Antonio Reynoso Admitting Unavailable ANTONIO REYNOSO Attending Unavailable ANTONIO REYNOSO Attending Unavailable ANTONIO REYNOSO Referring Unavailable ANTONIO REYNOSO Attending Unavailable ANTONIO REYNOSO Attending Unavailable Amy Christine MD Primary Care Provider [phone] Amy Christine MD Attending Provider [phone] Medications Current Medications MedicationDrug Class(es)DatesSig (Normalized)Sig (Original)Calcium Carb, Citrate-Vit D3 (Citracal-D3 Slow Release) 600 mg-12.5 mcg (500 unit) tablet extended release (3 sources)Start: 99-51-3939zmqq 1 tablet by mouth once dailyStart: 01-13-2025 take 1 tablet by mouth once dailyCalcium Carb, Citrate-Vit D3 (Citracal-D3 Slow Release) 600 mg-12.5 mcg (500 unit) tablet extended release Active 1 TAB PO Daily January 13, 2025 12:00am Complies with drug therapyGarlic (4 sources)Non-Standardized Food Allergenic ExtractStart: 00-09-7522sfhr 1 capsule by mouth once dailyStart: 79-71-1476evym 1 capsule by mouth once daily Garlic 1,000 mg capsule Active 1000 MG PO Daily December 31, 2024 12:00am Complies with drug therapylevothyroxine sodium 0.1 mg oral tablet (11 sources)l-ThyroxineStart: 01-13-2025 End: 51-12-7824dsfg 1 tablet by mouth once dailyLevothyroxine 100 mcg tablet Active 100 MCG PO Daily March 31, 2025 12:00am Complies with drug therapy Magnesium (4 sources)Start: 01-76-3888jwld 2 tablets by mouth once dailyStart: 12-31-2024 take 2 tablets by mouth once dailyMagnesium 200 mg tablet Active 400 MG PO Daily December 31, 2024 12:00am Complies with drug therapyMultivitamin With Minerals capsule (4 sources)Start: 46-37-9603nsqd 1 capsule by mouth once dailyStart: 12-31-2024 take 1 capsule by mouth once dailyMultivitamin With Minerals capsule Active 1 CAP PO Daily December 31, 2024 12:00am Complies with drugtherapyOmega 3-Dov-Nkp-Fish Oil (Fish Oil) 1,000 (120-180) mg capsule (4 sources)Start: 59-57-6476uxsf 1 capsule by mouth once dailyStart: 12-31-2024 take 1 capsule by mouth once dailyOmega 8-Zyk-Hgp-Fish Oil (Fish Oil) 1,000 (120-180) mg capsule Active 1 CAP PO Daily December 31, 2024 12:00am Complies with drug therapyVitamin B Complex capsule (4 sources)Start: 56-89-3165qmor 1 capsule by mouth once dailyStart: 12-31-2024 take 1 capsule by mouth once dailyVitamin B Complex capsule Active 1 CAP PO Daily December 31, 2024 12:00am Complies with drug therapy Completed/Discontinued Medications MedicationDrug Class(es)DatesSig (Normalized)Sig (Original)[id number] 200 actuat albuterol 0.09 mg/actuat metered dose inhaler (12 sources)beta2-Adrenergic AgonistStart: 03-24-2024 End: 02-43-6902nolb 1 puff(s) by inhalation every four hours as neededAlbuterol Sulfate 90 mcg/actuation HFA aerosol inhaler Discontinued 2 PUFF INHALATION Q4H as neededDece2023 11:36am December 31, 2024 11:01amamoxicillin 500 mg oral capsule (7 sources)Penicillin-class AntibacterialStart: 03-24-2024 End: 33-46-2747knjl 2 capsules by mouth every eight hoursAmoxicillin 500 mg capsule Discontinued 1000 MG PO Every 8 hours 42 7 March 24, 2024 12:00am April 21, 2024 4:47pmStart: 31-03-4895rgvx 1000 mg by mouth every eight hoursAmoxicillin Active 1000 MG PO Every 8 hours 42 7 March 24, 2024 12:00am benzonatate 200 mg oral capsule (5 sources)Non-narcotic AntitussiveStart: 05-13-2024 End: 83-69-9517Jlqomrrtqqm 200 mg capsule Discontinued 200 MG PO 2-3 TIMES PER DAY as needed for cough 30 0 May 13, 2024 1:00am December 31, 2024 11:01am cefdinir 300 mg oral capsule (6 sources)Cephalosporin AntibacterialStart: 04-21-2024 End: 12-49-6408sjoh 1 capsule by mouth twice dailyCefdinir 300 mg capsule Discontinued 300 MG PO Twice daily 14 0 April 21, 2024 1:00am 2023 3:31pmcodeine phosphate 2 mg/ml / guaiFENesin 20 mg/ml oral solution (5 sources)Opioid AgonistStart: 05-13-2024 End: 48-63-6091ikhq 1 mL by mouth every six hours as needed for coughCodeine- Guaifenesin 10-100 mg/5 mL liquid Discontinued 5 ML PO Every 6 hours as needed for cough 120 7 0 May 13, 2024 1:00am June 02, 2024 11:36am Bronchitis Bronchitis, not specified as acute or chronicdextromethorphan hydrobromide 1.5 mg/ml / pyrilamine maleate 1.5 mg/ml oral solution (5 sources)Uncompetitive H-ezmiox-H-aspartate Receptor Antagonist, Sigma-1 AgonistStart: 03-24-2024 End: 78-21-6682ixjz 1 mL by mouth every eight hoursPyrilamine-Dextromethorphan (Peralta Dm) 7.5-7.5 mg/5 mL liquid Discontinued 10 ML PO Every 8 hours 150 5 0 March 24, 2024 12:00am April 21, 2024 4:64cj266 actuat formoterol fumarate 0.005 mg/actuat / mometasone furoate 0.1 mg/actuat metered dose inhaler (15 sources)Corticosteroid, beta2-Adrenergic AgonistStart: 06-02-2024 End: 87-14-0492dexd 1 puff(s) by inhalation twice dailyMometasone-Formoterol (Dulera) 100-5 mcg/actuation HFA aerosol inhaler Discontinued 2 PUFF INHALATION Twice daily 1 30 3 June 02, 2024 12:00pm June 19, 2024 8:43am Centrilobular emphysema Centrilobular emphysema Rinse after usepredniSONE 20 mg oral tablet (18 sources)Start: 05-16-2024 End: 59-03-3961xzwr 1 tablet by mouth twice dailyPrednisone 20 mg tablet Discontinued 20 MG PO Twice daily 10 5 0 May 16, 2024 9:32am 2023 11:36amStart: 03-24-2024 End: 20-64-7283nlwl 1 tablet by mouth twice dailyPrednisone 20 mg tablet Discontinued 20 MG PO Twice daily 10 5 0 April 21, 2024 5:03pm May 13, 2024 3:31pmPyrilamine-Dextromethorphan (Peralta Dm) 7.5-7.5 mg/5 mL liquid (2 sources)Start: 03-24-2024 End: 48-78-8601ybhe 1 mL by mouth every eight hoursPyrilamine-Dextromethorphan (Peralta Dm) 7.5-7.5 mg/5 mL liquid Discontinued 10 ML PO Every 8 hours 150 5 March 23, 2024 11:00pm April 21, 2024 3:47pmStart: 47-44-0306hmwa 1 mL by mouth every eight hoursPyrilamine-Dextromethorphan (Peralta Dm) 7.5-7.5 mg/5 mL liquid Active 10 ML PO Every 8 hours 150 5 March 24, 2024 12:00am Problems Active Problems Problem ClassificationProblemDateDocumented DateEpisodic/ChronicAcute bronchitis (20 sources)Bronchiolitis; Translations: [Acute bronchiolitis, unspecified] Onset: 05-26-2024 Resolved: 359962-42-5977YzvmygbhAtzscpj obstructive pulmonary disease and bronchiectasis (20 sources)Bronchiectasis; Translations: [Bronchiectasis, uncomplicated]Onset: 12-29-2024 Resolved: 069901-35-3711PzbvqduSqzcnvp obstructive pulmonary disease and bronchiectasis (7 sources)Bronchitis; Translations: [Bronchitis, not specified as acute or chronic]32-02-7248WyrtuuqnZntwavzo of white blood cells (19 sources)Familial eosinophilia; 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]Onset: 12-29-2024 Resolved: 072864-64-6805UjptkzsVhigarfvuugxq and screening for infectious disease (4 sources)Encounter for immunization; Translations: [ENCOUNTER FOR IMMUNIZATION]Onset: 01-63-1565CvskcbjkNeriq injuries and conditions due to external causes (5 sources)Mucoid impaction of bronchi; Translations: [Unspecified foreign body in bronchus causing asphyxiation, initial encounter]01-21-5510UzqaybbxBgefd lower respiratory disease (2 sources)Unspecified acute lower respiratory infection; Translations: [Other diseases of respiratory system,not elsewhere classified]69-85-5924JjrzajnsRdgrz lower respiratory disease (19 sources)Multiple nodules of lung; Translations: [Other nonspecific abnormal finding of lung field]Onset: 12-29-2024 Resolved: 459318-24-8511RnfqortnQsiok nutritional; endocrine; and metabolic disorders (19 sources)Btsyc-2-zdtecskpfey deficiency; Translations: [Ylrvh-2-ffrdcmhqdoo deficiency]Onset: 12-29-2024 Resolved: 836244-89-7797NkqxmprUfcrg screening for suspected conditions (not mental disorders or infectious disease) (10 sources)Patient encounter status; Translations: [Encounter for screening mammogram for malignant neoplasm of breast]66-54-7420SienmiiaOvwvcrqz codes; unclassified (20 sources)Menopause present; Translations: [Asymptomatic menopausal state] Onset: 12-29-2024 Resolved: 240002-41-8843YsdpwxrgShxcyxbc codes; unclassified (2 sources)Asymptomatic menopausal state; Translations: [Symptomatic menopausal or female climacteric states]78-21-2724PcijbnvrSxdaequz codes; unclassified (19 sources)Passive smoker; Translations: [Contact with and (suspected) exposure to environmental tobacco smoke(acute) (chronic)]Onset: 12-29-2024 Resolved: 770807-68-8343CysrsckvJupkmco disorders (20 sources)Thyroid nodule; Translations: [Nontoxic single thyroid nodule]Onset: 12-29-2024 Resolved: 71-29-7251OcualfoShmcrcsqcebo (2 sources)CONTACT W/AND (SUSP) EXPOS COVID-19; Translations: [CONTACT W/AND (SUSP) EXPOS COVID-19]Onset: 85-19-6374Zvkjkrdblsfm (3 sources)E04.1 - Nontoxic single thyroid noduleViral infection (1 source)COVID-19; Translations: [COVID-19]Onset: 04-02-2021 Past or Other Problems Problem ClassificationProblemDateDocumented DateEpisodic/ChronicUnclassified (1 source)CONTACT W/AND (SUSP) EXPOS COVID-19; Translations: [CONTACT W/AND (SUSP) EXPOS COVID-19]Onset: 03-28-2021 Results Test NameValueInterpretationReference RangeFacilityThyrotropin [Units/volume] in Serum or PlasmaOrdered By: Antonio Reynoso on 58-34-7844FXN Qn0.55 m[IU]/L 0.45-5.33[facility] Ferry HospitalComment on above:Result Comment: PERFORMED BY: [place] [address] [place] [address] PATHOLOGIST ASSISTANT WRESTLING COACH HERI HUNTER M.D.Performed By: #### BMP, T3T, TSH3, IFVX06RE, T4T, PTH #### [facility] [address] [place] [address] USAThyroxine (T4) [Mass/volume] in Serum or PlasmaOrdered By: Antonio Reynoso on 34-71-9986R7 [Mass/Vol]9.81 ug/dL5.39-11.82[facility] Ferry HospitalComment on above:Performed By: #### BMP, T3T, TSH3, DKTP75HN, T4T, PTH #### [facility] [address] [place] [address] USATriiodothyronine (T3) Totalon 12-43-9765Opdzjbfsrulkykit (T3) Total0.96 ng/mLNormal0.87-1.78[facility] Physician GroupComment on above:Performed By: #### BMP, T3T, TSH3, RRQB29XL, T4T, PTH #### [facility] [address] [place] [address] USATriiodothyronine (T3) [Mass/volume] in Serum or Plasma Ordered By: Antonio Reynoso on 32-00-6259K8 [Mass/Vol]0.96 ng/mL0.87-1.78 [facility]erry HospitalCalciumon 40-42-3303Wecmfan [Mass/Vol]8.9 mg/dL 8.6 - 10.3 mg/dLNOMS HealthcareCalcium [Mass/Vol]on 36-51-7010Wurhzzs Called to Dr. Gutiérrez HealthcareCalcium [Mass/volume] in Serum or Plasma Ordered By: Antonio Reynoso on 07-26-0437Abztjyk [Mass/Vol]8.9 mg/dL8.6-10.3 [facility]erry HospitalComment on above:Order Comment: Comment Called to Dr. Cedillo Comment: PERFORMED BY: [address] [address] PATHOLOGIST ASSISTANT WRESTLING COACH HERI HUNTER M.D.Performed By: #### CA, PTH #### [facility] [address] [place] [address] Nasir 01-13-2025L Specimen: [id number] Received: 01/13/25 Status: DANUTA Rivero Num: [id number] Spec Type: Surgical Subm Dr: Antonio Reynoso DO Tissues: A THYROID - Lobe (LEFT SUBSTERNAL THYROID LOBE) B THYROID - Lobe (R LOBE) Procedures: , Gross/Micro L5/2 Age/ Patient Sex Location Account Attending Physician Jessica Goldstein 69/F [place] [id number] Antonio Reynoso DO SPEC NUM: [id number] RECD: 01/13/25 STATUS: DANUTA RIVERO NUM: [id number] SILVER: 01/13/[address] [facility] [address]: Antonio Reynoso DO ENTERED: 01/13/[address] [facility] [address]: SPEC TYPE: Surgical DEPT: S ENTERED BY: [id number] RECV BY: [id number] ORDERED: HE/11, Gross/Micro L5/2 ORDERED: HE/11, Gross/Micro L5/2 Pathological Diagnosis A. Thyroid, substernal, left lobe, and isthmus (lobectomy and isthmusectomy): Nodular hyperplasia, diffuse Chronic nonspecific lymphocytic thyroiditis, mild Seven mildly reactive lymph nodes No malignancy seen B. Thyroid, right lobe (lobectomy): Nodular hyperplasia, diffuse with a dominant nodule Chronic nonspecific lymphocytic thyroiditis, mild One mildly reactive lymph node No malignancy seen Clinical Information Multinodular goiter Gross Description Part A is received in formalin labeled with the patients name, date of , and substernal thyroid L lobe and isthmus is a 29 g, left thyroidectomy with attached isthmus, 6.5 cm superior to inferior, 3.6 cm medial to lateral, and 2.8 cm anterior to posterior. The inferior aspect of the specimen displays a linear incision, 3 cm in length. The medial aspect of the specimen displays a rough and irregular area, 2 x 0.8 cm, consistent with fragmented isthmic margin. Extending from the superior aspect of the fragmented isthmic Specimen: [id number] Received: 01/13/25 Status: DANUTA Josefa Num: [id number] Spec Type: Surgical Subm Dr: Antonio Reynoso DO Tissues: A THYROID - Lobe (LEFT SUBSTERNAL THYROID LOBE) B THYROID - Lobe (R LOBE) Procedures: , Gross/Micro L5/2 Patient: Jessica Goldstein [id number] (Continued) Specimen: [id number] Received: 01/13/25 (Continued) Gross Description (Continued) Signed (signature on file) Adolph Hawk Jr., 01/15/25 1317 Specimen: [id number] Received: 01/13/25 Status: DANUTA Rivero Num: [id number] Spec Type: Surgical Subm Dr: Antonio Reynoso DO Tissues: A THYROID - Lobe (LEFT SUBSTERNAL THYROID LOBE) B THYROID - Lobe (R LOBE) Procedures: , Gross/Micro L5/2 Patient: Jessica Goldstein [id number] (Continued) Specimen: [id number] Received: 01/13/25 (Continued) Gross Description (Continued) margin is an ovoid portion of adipose tissue, 1.4 x 1 x 0.3 cm. Within the adipose tissue are two 0.3 cm in greatest dimension lymph node candidates. The remaining capsular surface is sheets-pink, membranous, smooth and glistening with focal adhesions. The fragmented isthmic margin is inked orange with the remainder of the thyroid inked blue. Serial sections reveal 3 well-circumscribed, sheets-pink, gelatinous nodular irregularities, 0.3, 1 and 3.5 cm in greatest dimension. The nodules are situated adjacent (less than 0.1 cm) from the fragmented isthmic margin, anterior, and posterior surfaces. The remaining thyroid parenchyma is red-brown, glistening and uniform. Die Stamping Press Operator sections of the thyroid are submitted in progressing from superior to inferior A1?A5 with the intact lymph node candidates and remaining adipose tissue submitted in A6. (6, ss, [id number] A) Part B is received in formalin labeled with the patients name, date of , and R lobe is a 12.5 g, right thyroidectomy, 4.8 cm superior to inferior, 3 cm medial to lateral, and 1.8 cm anterior to posterior. The inferomedial aspect of the specimen displays a roughened irregular area, 2 x 0.7 cm, consistent with fragmented isthmic margin. The remaining capsular surface is sheets-pink, membranous, smooth and glistening with focal adhesions on the posterior aspect. The fragmented isth (more content not included)...NormalThe [facility] GroupParathyrin.intact [Mass/Vol]on 08-84-0292ZTQFAVMWGWJ HORMONE ZZRSQE72.8 pg/mL12 - 88 pg/mLNJACKSON C. MEMORIAL [facility] HealthcareComment Call to Dr. ReynosoCAPE FEAR/HARNETT HEALTHKISHOREChristian HospitalParathyrin.intact [Mass/volume] in Serum or PlasmaOrdered By: Antonio Reynoso on 98-27-6695Jmchrebfhy.intact [Mass/Vol]13.8 pg/xY63-12PijvqvnezMartins Ferry HospitalParathyroid Hormone Intacton 46-49-3491Puslruwdcrv Hormone Wxhxhu05.8 pg/tZWxprrd43-13Okt [facility] Physician GroupComment on above:Order Comment: Comment PSTResult Comment: PERFORMED BY: [place] [address] PATHOLOGIST ASSISTANT WRESTLING COACH HERI HUNTER M.D.Performed By: #### BMP, T3T, TSH3, IWPZ47XT, T4T, PTH #### [address] [address] USABasic Metabolic Panelon 26-97-5871EZN/1.73 sq M.predicted MDRD (S/P/Bld) [Vol rate/Area]mL/min/{1.73_m2}NormalThe [facility] Physician [facility] CenterComment on above:Order Comment: Comment PSTPerformed By: #### BMP, T3T, TSH3, NQOC56JL, T4T, PTH #### [address] [address] USABasophils [#/volume] in Blood by Automated countOrdered By: Antonio Reynoso on 83-85-1075Lnnxjflzi (Bld) [#/Vol]0.1 10*3/uL0.0-0.2 [facility]erry HospitalComment on above:Result Comment: PERFORMED BY: [address] [address] PATHOLOGIST ASSISTANT WRESTLING COACH HERI HUNTER M.D.Performed By: #### CBC #### [address] [address] USABasophils/100 leukocytes in Blood by Automated count Ordered By: Antonio Reynoso on 11-03-9014Doilkydoa/100 WBC (Bld)1.3 %.[facility] Ferry HospitalComment on above:Performed By: #### CBC #### [facility] [address] Auto Differential panel (Bld)on 48-82-4712Gtceutakv (Bld) [#/Vol]0.1 10*3/uL0.0 - 0.2 10*3/uLNOMS HealthcareBasophils/100 WBC Manual cnt (Syn fld)1.3 %.NOM HealthcareEosinophils (Bld) [#/Vol]0.3 10*3/uL0.0 - 0.45 10*3/uLNOMS HealthcareEosinophils/100 WBC Manual cnt (Syn fld)6.5 %.[facility] SystemsErythrocyte distribution width (RBC) [Ratio]13.9 %11.9 - 15.3 %[facility] SystemsHematocrit (Bld) [Volume fraction]37.2 %34.0 - 46.4 %[facility] Hemoglobin (Bld) [Mass/Vol]12.7 g/dL11.8 - 15.4 g/dLBLUE MOUNTAIN HOSPITAL, INC. HealthcareLymphocytes (Bld) [#/Vol]1.8 10*3/uL1.00 - 4.8 10*3/uLNOMS HealthcareLymphocytes/100 WBC Manual cnt (Syn fld)34.8 %.[facility] SystemsMCH (RBC) [Entitic mass]28.3 pg24.7 - 34.3 pgUniversity HospitalHC (RBC) [Mass/Vol]34.2 g/dL32.0 - 35.0 g/dLPemiscot Memorial Health SystemsMCV (RBC) [Entitic vol]82.8 fL80 - 100 fLBLUE MOUNTAIN HOSPITAL, INC. HealthcareMonocytes (Bld) [#/Vol]0.3 10*3/uL0.0 - 0.8 10*3/uLNOMS Healthcare Monocytes+Macrophages/100 WBC Manual cnt (Syn fld)6 %.[facility] HealthcareNeutrophils (Bld) [#/Vol]2.7 10*3/uL1.8 - 7.7 10*3/uLNOMS HealthcareNeutrophils/100 WBC Manual cnt (Syn fld)51.4 %.[facility] HealthcareNRBC0 /100{WBC}0 - 0.5 /100{WBC}NOMS HealthcarePlatelet mean volume (Bld) [Entitic vol]7.4 fL6.3 - 10.7 fLNOMS HealthcarePlatelets (Bld) [#/Vol]232 10*3/uL150 - 450 10*3/uLNOMS HealthcareRBC LM.HPF (Urine sed) [#/Area]4.5 10*6/uL3.60 - 5.00 10*6/uLNOMS HealthcareWBC (Bld) [#/Vol]5.3 10*3/uL3.8 - 11.6 10*3/uLNOMS HealthcareWBC LM.HPF (Urine sed) [#/Area]5.3 [CFU]/mL3.8 - 11.6 [CFU]/mLNOMS HealthcareNOMS HealthcareCalcium [Mass/volume] in Serum or PlasmaOrdered By: Antonio Reynoso on 42-21-2908Kpltbik [Mass/Vol]10.0 mg/dL8.6-10.3FUniversity Hospitals Parma Medical CenterComment on above: Order Comment: Comment PSTPerformed By: #### BMP, T3T, TSH3, LGCL21AQ, T4T, PTH #### [facility] [address] [place] [address] USACarbon dioxide, total [Moles/volume] in Serum or Plasma Ordered By: Antonio Reynoso on 20-13-3525RD8 [Moles/Vol]30.0 mmol/L21.0-31.0 [facility] HospitalComment on above:Order Comment: Comment PST Performed By: #### BMP, T3T, TSH3, TUJB12XB, T4T, PTH #### [facility] [address] [place] [address] USAChloride [Moles/volume] in Serum or PlasmaOrdered By: Antonio Reynoso on 69-05-7574Flddsvsi [Moles/Vol]107 mmol/X05-089AbbjhputuMartins Ferry HospitalComment on above:Order Comment: Comment PSTPerformed By: #### BMP, T3T, TSH3, NXCK56DU, T4T, PTH #### [facility] [address] [place] [address] USAComplete Blood Count Auto Diffon 44-77-7792Uagb Corpuscular HGB Conc34.2 g/yWHjpnyt70.0-35.0[facility] Physician GroupComment on above:Performed By: #### CBC #### [facility] [address] [place] [address] USANRBC%0.0 /100{WBC}Normal0-0.5The [facility] Physician Group Comment on above:Performed By: #### CBC #### [facility] [address] [place] [address] USAWhite Blood Count5.3 [CFU]/mLNormal3.8-11.6[facility] Physician [facility] CenterComment on above:Performed By: #### CBC #### [place] [address] USACreatinine [Mass/volume] in Serum or PlasmaOrdered By: Antonio Reynoso on 97-27-5559Omnuvnapyz [Mass/Vol]0.62 mg/dL0.60-1.20[facility]erry HospitalComment on above:Order Comment: Comment PSTPerformed By: #### BMP, T3T, TSH3, JLBP85OJ, T4T, PTH #### [place] [id number] USAECG 12 lead ECGon 92-01-2800WGB 12 lead ECGMEDINA HOSPITAL [facility] [place] [address] [place] [address] Electrocardiograph Report Signed Patient: Jessiac Goldstein MR#: [id number] 61 : 1955 Acct:[id number] Age/Sex: 69 / F ADM Date: 12/31/24 Loc: Room: Type: [facility] Attending Dr: Antonio Reynoso DO Ordering Provider: Antonio Reynoso DO Date of Service: 12/31/24 ECG/ECG 12 lead ECG: surgery 01/13 Copies to: Test Reason : Blood Pressure : */* mmHG Vent. Rate : 59 BPM Atrial Rate : 59 BPM P-R Int : 154 ms QRS Dur : 78 ms QT Int : 388 ms P-R-T Axes : 25 34 63 degrees QTcB Int : 384 ms Sinus bradycardia Otherwise normal ECG No previous ECGs available Confirmed by BROCK OSBORNE MD ([id number]) on 12/31/2024 5:23:24 PM Referred By: Electronically Signed By: BROCK OSBORNE MD Transcribed By: MUS Signed By Brock Osborne MD 0 12/31/[address] [place] [address] Physician GroupEosinophils [#/volume] in Blood by Automated countOrdered By: Antonio Reynoso on 44-18-5337Brmjjyhprte (Bld) [#/Vol]0.3 10*3/uL0.0-0.45Mart[facility] Ferry HospitalComment on above: Performed By: #### CBC #### [place] [address] USAEosinophils/100 leukocytes in Blood by Automated count Ordered By: Antonio Reynoso on 69-60-6959Yqyjfjpiobr/100 WBC (Bld)6.5 %. [facility] HospitalComment on above:Performed By: #### CBC #### [facility] [address] [place] [address] USAErythrocyte distribution width [Ratio] by Automated count Ordered By: Antonio Reynoso on 38-73-4522Nuauaouesxg distribution width (RBC) [Ratio]13.9 %11.9-15.3FUniversity Hospitals Parma Medical CenterComment on above: Performed By: #### CBC #### [facility] [address] [place], [place] [id number] USAErythrocytes [#/volume] in Blood by Automated countOrdered By: Antonio Reynoso on 78-90-6398BRK (Bld) [#/Vol]4.50 10*6/uL3.60-5.00 [facility] HospitalComment on above:Performed By: #### CBC #### [facility] [address] [place] [address] USAGlucose [Mass/volume] in Serum or PlasmaOrdered By: Antonio Reynoso on 52-92-6788Rkqdijl [Mass/Vol]90 mg/iB74-241Gyvjiqknf Regional Medical CenterComment on above:ADA recommended reference rangeRandom Glucose Reference Range is dependent on time and content of last meal. Glucose of more than 200 mg/dL in a nonstressed, ambulatory subject supports the diagnosisof Diabetes Mellitus.Order Comment: Comment PSTResult Comment: Random Glucose Reference Range is dependent on time and content of last meal. Glucose of more than 200 mg/dL in a nonstressed, ambulatory subject supports the diagnosis of Diabetes Mellitus. ADA recommended reference rangePerformed By: #### BMP, T3T, TSH3, BNVQ68ZZ, T4T, PTH #### [place] [address] USAHematocrit [Volume Fraction] of Blood by Automated count Ordered By: Antonio Reynoso on 62-49-7303Rihybaqntk (Bld) [Volume fraction]37.2 %34.0-46.4FUniversity Hospitals Parma Medical CenterComment on above:Performed By: #### CBC #### [place] [address] USAHemoglobin [Mass/volume] in BloodOrdered By: Antonio Reynoso on 06-84-7621Eizuiqqckk (Bld) [Mass/Vol]12.7 g/dL11.8-15.4FUniversity Hospitals Parma Medical CenterComment on above:Performed By: #### CBC #### [place] [address] USALeukocytes [#/volume] corrected for nucleated erythrocytes in Blood by Automated counOrdered By: Antonio Reynoso on 90-44-6988IQQ corrected for nucl RBC Auto (Bld) [#/Vol]5.3 10*3/uL3.8-11.6FUniversity Hospitals Parma Medical CenterLeukocytes [#/volume] in Blood by Automated countOrdered By: Antonio Reynoso on 06-32-9208AUS (Bld) [#/Vol]5.3 10*3/uL3.8-11.6FUniversity Hospitals Parma Medical CenterComment on above:Performed By: #### CBC #### [place] [address] USALymphocytes [#/volume] in Blood by Automated countOrdered By: Antonio Reynoso on 40-12-9367Otkedsgajje (Bld) [#/Vol]1.8 10*3/uL1.00-4.8 [facility] HospitalComment on above:Performed By: #### CBC #### [place] [address] USALymphocytes/100 leukocytes in Blood by Automated count Ordered By: Antonio Reynoso on 42-63-0508Rescpmmildb/100 WBC (Bld)34.8 %. [facility] HospitalComment on above:Performed By: #### CBC #### [address] [Entitic mass] by Automated countOrdered By: Antonio Reynoso on 55-50-5195YBQ (RBC) [Entitic mass]28.3 pg24.7-34.3FUniversity Hospitals Parma Medical CenterComment on above:Performed By: #### CBC #### [address] Auto (RBC) [Mass/Vol]Ordered By: Antonio Reynoso on 42-16-8837LUBF (RBC) [Mass/Vol]34.2 g/dL32.0-35.0[facility]erry HospitalMCV [Entitic volume] by Automated countOrdered By: Antonio Reynoso on 79-27-6567CPQ (RBC) [Entitic vol]82.8 rN06-638VfkgsfgfqMartins Ferry Hospital Comment on above:Performed By: #### CBC #### [place] [address] USAMonocytes [#/volume] in Blood by Automated countOrdered By: Antonio Reynoso on 49-53-7610Vvwrppnll (Bld) [#/Vol]0.3 10*3/uL0.0-0.8 [facility] HospitalComment on above:Performed By: #### CBC #### [place] [address] USAMonocytes/100 leukocytes in Blood by Automated count Ordered By: Antonio Reynoso on 59-30-6430Ojszxhfnq/100 WBC (Bld)6.0 %.[facility]erry HospitalComment on above:Performed By: #### CBC #### [facility] [address] [phone] USANeutrophils [#/volume] in Blood by Automated countOrdered By: Antonio Reynoso on 90-49-4784Snjmtzpnpbs (Bld) [#/Vol]2.7 10*3/uL1.8-7.7 [facility] HospitalComment on above:Performed By: #### CBC #### [facility] [address] [place] [address] USANeutrophils/100 leukocytes in Blood by Automated count Ordered By: Antonio Reynoso on 80-83-2259Eblpufhxfks/100 WBC (Bld)51.4 %. [facility]erry HospitalComment on above:Performed By: #### CBC #### [facility] [address] [place] [address] USANo Panel InformationOrdered By: Antonio Reynoso on 81-73-1773Kqzfkssqb GFR (CKD-EPI)> 60.0 mL/MinMartins Ferry Hospital Pharmacy Creatinine Clearance (ChemN/AFUniversity Hospitals Parma Medical CenterNucleated erythrocytes [Presence] in Blood by Automated countOrdered By: Antonio Reynoso on 94-56-3400Azyburbta RBC Auto Ql (Bld)0.0 /100{WBC}0-0.5FUniversity Hospitals Parma Medical CenterParathyrin.intact [Mass/Vol]on 11-60-0417VPSQFTYUVXO HORMONE JVNSYR52.9 pg/mL12 - 88 pg/mLNJACKSON C. MEM[facility]IAL [facility] HealthcareComment [facility] Parathyrin.intact [Mass/volume] in Serum or PlasmaOrdered By: Antonio Reynoso on 02-45-4011Xxwgvjgqad.intact [Mass/Vol]30.9 pg/fR14-30RgiwctpcvMartins Ferry HospitalParathyroid Hormone Intacton 66-72-0590Hioflnxazbn Hormone Ydnkmr33.9 pg/yLQhopli97-88Jkg [facility] Physician GroupComment on above:Order Comment: Comment PSTResult Comment: PERFORMED BY: [facility] [address] [phone] PATHOLOGIST ASSISTANT WRESTLING COACH HERI HUNTER M.D.Performed By: #### BMP, T3T, TSH3, FTVA63II, T4T, PTH #### [facility] [address] [place] [address] USAPlatelet mean volume [Entitic volume] in Blood by Automated countOrdered By: Antonio Reynoso on 90-31-4989Nwvdrwbg mean volume (Bld) [Entitic vol]7.4 fL6.3-10.7FUniversity Hospitals Parma Medical CenterComment on above:Performed By: #### CBC #### [place] [address] USAPlatelets [#/volume] in Blood by Automated countOrdered By: Antonio Reynoso on 03-85-3677Gaqgbxiqw (Bld) [#/Vol]232 10*3/qA010-283 [facility] HospitalComment on above:Performed By: #### CBC #### [place] [address] USAPotassium [Moles/volume] in Serum or PlasmaOrdered By: Antonio Reynoso on 22-63-7069Urkhjljmo [Moles/Vol]5.2 mmol/LHigh3.5-5.1FUniversity Hospitals Parma Medical CenterComment on above:Order Comment: Comment PSTPerformed By: #### BMP, T3T, TSH3, XWDN30RL, T4T, PTH #### [place] [phone] USASerum or plasma anion gap determinationOrdered By: Antonio Reynoso on 13-06-9016Njctq gap [Moles/Vol]10.2 mmol/L6.0-15.0[facility] HospitalComment on above:Order Comment: Comment PSTPerformed By: #### BMP, T3T, TSH3, YSXC34VZ, T4T, PTH #### [place] [phone] USASodium [Moles/volume] in Serum or PlasmaOrdered By: Antonio Reynoso on 56-18-4012Zzfboe [Moles/Vol]142 mmol/C154-923ElpkoscbuMartins Ferry HospitalComment on above:Order Comment: Comment PSTPerformed By: #### BMP, T3T, TSH3, GONA15NX, T4T, PTH #### [facility] [address] [place] [address] USAThyrotropin [Units/volume] in Serum or PlasmaOrdered By: Antonio Reynoso on 21-35-9104XKV Qn0.60 m[IU]/L0.45-5.33[facility]erry HospitalComment on above:Order Comment: Comment PSTPerformed By: #### BMP, T3T, TSH3, GWSD25SU, T4T, PTH #### [facility] [address] [place] [address] USAThyroxine (T4) [Mass/volume] in Serum or PlasmaOrdered By: Antonio Reynoso on 88-87-7294L2 [Mass/Vol]7.81 ug/dL5.39-11.82[facility] HospitalComment on above:Order Comment: Comment PSTPerformed By: #### BMP, T3T, TSH3, XFON03PY, T4T, PTH #### [facility] [address] [place] [address] USATriiodothyronine (T3) Totalon 62-21-1138Xwesepvnpanbjmtw (T3) Total1.19 ng/mLNormal0.87-1.78The [facility] Physician GroupComment on above:Order Comment: Comment PSTPerformed By: #### BMP, T3T, TSH3, DWFM62LO, T4T, PTH #### [facility] [address] [place] [address] USATriiodothyronine (T3) [Mass/volume] in Serum or Plasma Ordered By: Antonio Reynoso on 00-20-7026Z3 [Mass/Vol]1.19 ng/mL0.87-1.78 [facility] HospitalUrea nitrogen [Mass/volume] in Serum or Plasma Ordered By: Antonio Reynoso on 87-82-0179Ykcr nitrogen [Mass/Vol]11 mg/dL7-25 [facility] HospitalComment on above:Order Comment: Comment PST Performed By: #### BMP, T3T, TSH3, IHCW27YN, T4T, PTH #### [facility] [address] [place] [address] USAVitamin D 25 Hydroxy Totalon 44-97-9057Dxjfnaj D 25 Hydroxy Total33.4 ng/dOLghnoq45-899Yyc [facility] Physician GroupComment on above:Order Comment: Comment PSTResult Comment: VITAMIN D STATUS 25(OH)VITAMIN D RANGE (ng/mL) Deficient <20 Insufficient 20 to <30 Sufficient 30 to 100 Reference: Abdiel Anderson, Fatou YOUNG et al. Evaluation,treatment, and prevention of vitamin D deficiency; an Endocrine Society clinical practice guideline. JCEM. 2010; 96(7):1911-30. PERFORMED BY: [place] [phone] PATHOLOGIST ASSISTANT WRESTLING COACH HERI HUNTER M.D.Performed By: #### BMP, T3T, TSH3, WFRR46VH, T4T, PTH #### [facility] [address] [place] [address] USAVitamin D+Metabolites [Mass/volume] in Serum or Plasma Ordered By: Antonio Reynoso on 79-86-9131Hxqwrrb D+Metabolites [Mass/Vol]33.4 ng/gR39-761EcqoyyrmtMartins Ferry HospitalComment on above:VITAMIN D STATUS 25(OH)VITAMIN D RANGE (ng/mL) Deficient <20 Insufficient 20 to <20Ldngcwjhbm28 to 100Reference: Abdiel Anderson, Fatou YOUNG, et al. Evaluation,treatment, and prevention of vitamin D deficiency; an Endocrine Society clinical practice guideline. JCEM. 2010; 96(7):1911-30.Basophils Auto (Bld) [#/Vol]on 29-63-3499Doamtsguu (Bld) [#/Vol]Automated basophil count 0.0-0.1FUniversity Hospitals Parma Medical CenterBasophils/100 WBC Auto (Bld)on 10-34-1668Buujdjrvp/100 WBC (Bld)Automated basophil %0.2-2.0[facility] HospitalEosinophils/100 WBC Auto (Bld)on 68-43-4942Fwezbbaouoe/100 WBC (Bld)Automated eosinophil %High0.9-7.0[facility] Erythrocyte distribution width Auto (RBC) [Ratio]on 00-65-2454Onyzurukioh distribution width (RBC) [Ratio]Erythrocyte distribution width [Ratio] by Automated count11.0-15.0[facility] HospitalEstimated glomerular filtration rate (GFR) non- Americanon 95-63-2357HYJ/1.73 sq M.predicted among non-blacks MDRD (S/P/Bld) [Vol rate/Area]Estimated glomerular filtration rate (GFR) non->=60 mL/min/1.73m 2FUniversity Hospitals Parma Medical CenterFibrin D-dimer [Presence] in Platelet poor plasma by Latex agglutinationon 23-84-7111Pymzma D-dimer LA Ql (PPP)Fibrin D-dimer [Presence] in Platelet poor plasma by Latex agglutination<=0.59[facility]erry HospitalComment on above:Increases in D-Dimer concentration observed withthromboembolic events can be variable due to localization,size, and age of the thrombus. Therefore, a thromboembolicevent cannot be diagnosed with certainty on the basis of thereference range. D-Dimers may also be elevated for a varietyof disorders inc luding advanced age, , coronarydisease, cancer, liver disease, infection, inflammation,hematoma, DIC, trauma, post-surgery, diabetes, thrombolyticor anticoagulant therapy, stress, and generalizedhospitalization. Globulin Calc (S) [Mass/Vol]on 15-24-7619Luumxfcj (S) [Mass/Vol]Serum globulin measurement by calculation (mass/volume)[facility] Hematocrit Auto (Bld) [Volume fraction]on 71-86-5055Kostqvsgru (Bld) [Volume fraction]Hematocrit [Volume Fraction] of Blood by Automated count36.0-48.0 [facility] HospitalHemoglobin [Mass/volume] in Bloodon 04-13-2024 Hemoglobin (Bld) [Mass/Vol]Hemoglobin [Mass/volume] in Blood12.0-16.0[facility] HospitalLaboratory - Chemistry and Chemistry - challengeon 92-42-7475Hcnrmsf [Mass/Vol]3.6 g/dL3.4-5.0[facility] HospitalALP [Catalytic activity/Vol]69 U/Z58-251VafdrcmxdMartins Ferry HospitalALT [Catalytic activity/Vol]21 U/X31-70ZkgbdudirMartins Ferry HospitalAST [Catalytic activity/Vol]14 U/DTgo08-03FxmkfmnauMartins Ferry HospitalBilirubin [Mass/Vol]0.3 mg/dL0.2-1.0[facility] HospitalCalcium [Mass/Vol]9.4 mg/dL8.5-10.1FUniversity Hospitals Parma Medical CenterChloride [Moles/Vol]109 mmol/L Cpbl33-054YohjblicjMartins Ferry HospitalCO2 [Moles/Vol]27.5 mmol/L21.0-32.0 [facility] HospitalCreatinine [Mass/Vol]0.86 mg/dL0.55-1.02 [facility] HospitalGFR/1.73 sq M.predicted MDRD (S/P/Bld) [Vol rate/Area]mL/min/{1.73_m2}>=60 mL/min/1.73m 2FUniversity Hospitals Parma Medical Center Glucose [Mass/Vol]97 mg/sN65-241UnymiducjMartins Ferry HospitalNatriuretic peptide B (Bld) [Mass/Vol]60.0 pg/mL<=900.0[facility] Potassium [Moles/Vol]4.3 mmol/L3.5-5.1FUniversity Hospitals Parma Medical CenterProtein [Mass/Vol]7.0 g/dL6.4-8.2FOhioHealth Riverside Methodist Hospitalodium [Moles/Vol]145 mmol/S270-299UkjqccuwzMartins Ferry HospitalUrea nitrogen [Mass/Vol]11.0 mg/dL 7.0-18.0[facility] HospitalUrea nitrogen/Creatinine [Mass ratio] 12.8 mg/mgMartins Ferry HospitalLaboratory - Hematology and Cell countson 69-26-8729Aaxqqypr granulocytes/100 WBC (Bld)0.0 %0.0-0.5FUniversity Hospitals Parma Medical CenterLeukocytes [#/volume] corrected for nucleated erythrocytes in Blood by Automated counon 05-01-3643TCE corrected for nucl RBC Auto (Bld) [#/Vol]Leukocytes [#/volume] corrected for nucleated erythrocytes in Blood by Automated coun4.0-11.0[facility] HospitalLymphocytes Auto (Bld) [#/Vol]on 24-88-8259Tfbfuhjhzqe (Bld) [#/Vol]Lymphocytes [#/volume] in Blood by Automated count1.2-3.8[facility] HospitalLymphocytes/100 WBC Auto (Bld)on 06-33-4879Xuaepmbfets/100 WBC (Bld)Lymphocytes/100 leukocytes in Blood by Automated count20.5-60.0[facility] Auto (RBC) [Entitic mass]on 47-80-3829DEJ (RBC) [Entitic mass]MCH [Entitic mass] by Automated count26.7-34.0[facility] ShawHC Auto (RBC) [Mass/Vol]on 94-56-6644MNFT (RBC) [Mass/Vol]MCHC [Mass/volume] by Automated count29.9-35.2FUniversity Hospitals Parma Medical CenterMCV Auto (RBC) [Entitic vol]on 25-86-3888PYP (RBC) [Entitic vol]MCV [Entitic volume] by Automated count 81.0-99.0[facility] HospitalMonocytes Auto (Bld) [#/Vol]on 04-71-8220Laqseuwdd (Bld) [#/Vol]Automated blood monocyte count0.3-0.8[facility]erry HospitalMonocytes/100 WBC Auto (Bld)on 72-32-6220Psloayris/100 WBC (Bld)Automated monocyte %1.7-12.0[facility] Neutrophils Auto (Bld) [#/Vol]on 63-89-0597Fvuiiiyqgbm (Bld) [#/Vol]Neutrophils [#/volume] in Blood by Automated count1.4-6.5FUniversity Hospitals Parma Medical Center Neutrophils/100 WBC Auto (Bld)on 47-56-2854Ijuyabocvja/100 WBC (Bld)Automated neutrophil %Low43.0-75.0[facility] HospitalNo Panel Informationon 39-61-1205Nnyrxqmpfsq # (Auto)0.6 10 3/uL0.0-0.7FUniversity Hospitals Parma Medical CenterImmature Granulocyte # (Auto)0.00 10 3/uL0.00-0.03[facility]erry HospitalTroponin I High Sensitivity8.7 pg/mL4.0-51.3FUniversity Hospitals Parma Medical CenterComment on above:CUT-OFF POINTS HAVE BEEN ESTABLISHED BASED ON THE FOURTHUNIVERSAL DEFINITION OF MYOCARDIAL INFARCTION. THE UPPERREFERENCE LIMIT (URL) OF TROPONIN, DEFINED THE 99THPERCENTILE OF cTnI DISTRIBUTION IN A REFERENCE POPULATION,HAS BEEN CONFIRMED THE DECISION THRESHOLD FOR MIDIAGNOSIS.99TH PERCENTILE = 51.4 PG/MLNOTE: HIGH-SENSITIVITY TROPONIN ASSAY IS NOT INTENDED TO BEUSED IN ISOLATION BUT SHOULD BE INTERPRETED IN CONJUNCTIONWITH OTHER DIAGNOSTIC AND CLINICAL INFORMATION.Platelet mean volume Auto (Bld) [Entitic vol]on 93-00-0562Mekzvuur mean volume (Bld) [Entitic vol] Platelet mean volume [Entitic volume] in Blood by Automated countLow9.5-13.5 [facility] HospitalPlatelets Auto (Bld) [#/Vol]on 04-13-2024 Platelets (Bld) [#/Vol]Platelets [#/volume] in Blood by Automated -568 [facility] HospitalRBC Auto (Bld) [#/Vol]on 84-83-9604CMS (Bld) [#/Vol]Erythrocytes [#/volume] in Blood by Automated count4.20-5.40[facility] Hospitalerum or plasma albumin/globulin mass ratioon 04-13-2024 Albumin/Globulin [Mass ratio]Serum or plasma albumin/globulin mass ratio [facility] Hospitalerum or plasma anion gap determinationon 79-26-4095Xvthe gap [Moles/Vol]Serum or plasma anion gap determinationMartins Ferry HospitalCovid-19 PCR (CVDTBH)on 71-50-1029AQWJ-CoV-2 (COVID-19) RNA LILLY+probe Ql (Unsp spec)DetectedCritically abnormalNOT DETECTEDThe Scci Hospital LimaComment on above:Result Comment: This test is not yet approved or cleared by the [place] FDA. When there are no FDA-approved or cleared tests available, and other criteria are met, FDA can make tests available under an emergency access mechanism called an Emergency Use Authorization (EUA). The EUA for this test is supported by the [place] of Health and Human Service's (HHS's) [...] no longer be used). Performed By: #### CVDTBH #### [facility] [address] [place] [address] Dr. Vamshi Whittington Vital Signs Date TimeVital SignValuePerforming RlnydkbsmVxtwuiob11-04-0077 08:34-0400Body bimsik504.72 cmAmy Christine MD Work Phone: [phone] [place], [place] 4461210-21-2025 08:34-0400 Body mass index (BMI) [Ratio]22.6 kg/s2QhjrieAmy Christine MD Work Phone: [phone] [place], [place] 4461210-21-2025 08:34-0400 Body qhatox37.35 kgAmy Christine MD Work Phone: [phone] [place], [place] 4461210-21-2025 08:34-0400 Diastolic blood sykensdv58 mm[Hg]Amy Christine MD Work Phone: [phone] [place], [place] 4461210-21-2025 08:34-0400 Heart rate80 /Kailey Christine MD Work Phone: [phone] [place], [place] 4461210-21-2025 08:34-0400 Respiratory rate14 /Kailey Christine MD Work Phone: [phone] [place], [place] 4461210-21-2025 08:34-0400 SaO2% (BldA) [Mass fraction]100 %Amy Christine MD Work Phone: [phone] [place], [place] 4461210-21-2025 08:34-0400 Systolic blood aatxqvcg348 mm[Hg]Amy Christine MD Work Phone: [phone] [place], [place] 4461209-15-2025 15:43-0400 Body mujcwq480.7 cmBenjamin Murcek DO Work Phone: [phone] [place], [place] [address]Ygvceauuua08-25-9924 15:43-0400Body mass index (BMI) [Ratio]22.05 kg/a9Gghncndm Murcek DO Work Phone: [phone] SystemsAmywxgsrlk06-17-0219 15:43-0400Body .77 kgBenjamin Murcek DO Work Phone: [phone]08-12-2025 09:34-0400Body caobbq607.7 cmBenjamin Murcek DO Work Phone: [phone])[address] [place], [place] 6557008-12-2025 09:34-0400Body mass index (BMI) [Ratio]22.05 kg/p6Ifmiiwuq Murcek DO Work Phone: [phone] [place], [place] [address]Yjgjymegyb59-52-5102 09:34-0400Body .77 kgBenjamin Murcek DO Work Phone: [phone] [place], [place] [address]Mxhmenveyx68-06-1245 16:20-0400Diastolic blood vhhodetv33 mm[Hg]Amy Christine MD Work Phone: [phone]08-05-2025 16:20-0400 Heart rate78 /Kailey Christine MD Work Phone: [phone]08-05-2025 16:20-0400 Respiratory rate16 /Kailey Christine MD Work Phone: [phone]08-05-2025 16:20-0400 SaO2% (BldA) [Mass fraction]95 %Amy Christine MD Work Phone: [phone]08-05-2025 16:20-0400 Systolic blood decpmoos034 mm[Hg]Amy Christine MD Work Phone: [phone]08-05-2025 14:50-0400 Body xfvhqxehqoh07.2 [degF]Amy Christine MD Work Phone: [facility]08-05-2025 14:24-0400 Inhaled oxygen flow rate8 L/minAmy Christine MD Work Phone: [facility]08-05-2025 11:58-0400 Body qkdlyw213.72 cmAmy Christine MD Work Phone: [facility]08-05-2025 11:58-0400 Body ynqdre07.1 kgAmy Christine MD Work Phone: [facility]07-22-2025 10:02-0400 Body esbrbz229.7 cmBenjamin Murcek DO Work Phone: [facility] SystemsZftegcyjzi08-06-1018 10:02-0400Body mass index (BMI) [Ratio]22.05 kg/f1Lvnkoohy Murcek DO Work Phone: [facility] SystemsYorvswydnz12-42-4285 10:02-0400Body cqlesz45.77 kgBenjamin Murcek DO Work Phone: [facility] SystemsXxulyzxazm02-62-4187 10:31-0500Body oisvke404.72 cmMartins Ferry Hospital11-11-2024 10:31-0500Body mass index (BMI) [Ratio]21.6 kg/k4OttdhqfphMartins Ferry Hospital11-11-2024 10:31-0500Body hfvgenjqnvb90.9 [degF][facility]11-11-2024 10:31-0500Body wrqgoo12.41 kgMartins Ferry Hospital11-11-2024 10:31-0500Diastolic blood qwesmiug00 mm[Hg][facility]11-11-2024 10:31-0500 Heart rate88 /minMartins Ferry Hospital11-11-2024 10:31-8052XmU0% (BldA) [Mass fraction]91 %[facility]11-11-2024 10:31-0500 Systolic blood mm[Hg][facility]10-15-2024 08:16-0400Body nidqaw131.72 cmMartins Ferry Hospital10-15-2024 08:16-0400Body mass index (BMI) [Ratio]21.8 kg/k0WimcxiidbMartins Ferry Hospital10-15-2024 08:16-0400Body oeehik53.03 kgMartins Ferry Hospital 03-25-2024 08:16-0400Diastolic blood tuqzvasu75 mm[Hg][facility]10-15-2024 08:16-0400Heart rate84 /[facility] 03-25-2024 08:16-0400Respiratory rate16 /[facility] 03-25-2024 08:16-0263ElU6% (BldA) [Mass fraction]97 %[facility]10-15-2024 08:16-0400Systolic blood vnyxhwtc434 mm[Hg][facility]10-14-2024 16:39-0400Body .72 cmMartins Ferry Hospital10-14-2024 16:39-0400Body mass index (BMI) [Ratio]22.2 kg/m2 [facility]10-14-2024 16:39-0400Body zscalizfxln19.7 [degF][facility]10-14-2024 16:39-0400Body htwxos71.28 kg [facility]10-14-2024 16:39-0400Diastolic blood mm[Hg][facility]10-14-2024 16:39-0400Heart rate67 /min [facility]10-14-2024 16:39-0400Respiratory rate18 /min [facility]10-14-2024 16:39-4857ZaR1% (BldA) [Mass fraction]95 %[facility]10-14-2024 16:39-0400Systolic blood tszmekpk943 mm[Hg][facility] Encounters Encounter DateEncounter TypeCare ProviderFacilityStart: 03-31-2025 End: 39-82-9224racgvaqlnbRauelx E Braun MD Work Phone: -fpg [facility] ClinicStart: 03-31-2025 End: 61-01-0437Ingfcvs encounter procedureMarcia E Christine MD-[facility] Work Phone: Start: 02-23-2025 End: 28-96-0893Fnyzoq follow up visit related to original pxBenmiguelmin Joel Murmarlen DO Work Phone: [facility] OtolaryngologyComment on above:Status post total thyroidectomy (Primary Dx)Start: 02-23-2025 End: 81-42-7546mihqvcfmavQSFAWYVI Joel SEOot AvailableStart: 02-23-2025 End: 33-45-6616Rqlvqa flowsheetBenjamin W Murmarlen DO Work Phone: [facility] OtolaryngologyStart: 02-23-2025 End: 24-62-6980Tiufbd flowsheetBenjamin W Murcearnaldo DO Work Phone: [facility] OtolaryngologyStart: 2025 End: 46-92-6868Ldizqod encounter procedureBenantonio Reynoso DO-Lab [facility] Work Phone: Start: 2025 End: 57-61-8701sjjqnshpiiOyukdw E Braun MD Work Phone: [facility] Work Phone: Start: 01-20-2025 End: 66-35-9047Bwtlbo flowsheetBenmiguelmin Joel Murcearnaldo DO Work Phone: [facility] OtolaryngologyStart: 01-20-2025 End: 32-62-2298Solskq flowsheetBenmiguelmin Joel Murcearnaldo DO Work Phone: [facility] OtolaryngologyStart: 01-20-2025 End: 26-68-4324Bdrrmk follow up visit related to original pxBenmiguelmin W Murcearnaldo DO Work Phone: [facility] OtolaryngologyComment on above:Status post total thyroidectomy (Primary Dx); Nontoxic multinodular goiterStart: 01-20-2025 End: 47-60-9430hmunhlyzylPOJXVYBL W MURCEKNot AvailableStart: 01-14-2025 End: 19-23-9242kydxoojvyxRHJQOUFR Joel MURSEBASTIANot AvailableStart: 01-13-2025 End: 36-03-9406Oavbdsdr Result EncounterBenantonio Hassank DO Work Phone: [facility] External Department UnsolicitedStart: 01-13-2025 End: 44-45-9280Dzvnzzss Result EncounterBenantonio Hassank DO Work Phone: [facility] External Department UnsolicitedStart: 01-13-2025 End: 59-72-5896Bpmbtyodo to same day surgery centerBenantonio Hassank DO-[facility] CampusStart: 01-13-2025 End: 01-19-1573konbvbfztxApvaqk E Braun MD Work Phone: [facility] Work Phone: Start: 12-31-2024 End: 42-03-1439Qkadhcgm Result EncounterBenantonio Reynoso DO Work Phone: [facility] External Department UnsolicitedStart: 12-31-2024 End: 84-83-9449Tarsczov Result EncounterBenantonio Reynoso DO Work Phone: [facility] External Department UnsolicitedStart: 12-31-2024 End: 62-55-5238Kcpibxn encounter procedureBenantonio Reynoso YQ-Sqq-Zuyemszv Testing Work Phone: Start: 12-31-2024 End: 37-20-7153mwqnjmtjddYinpba E Braun MD Work Phone: [facility] Work Phone: Start: 88-04-3047Vqtvwjcnx for preprocedural laboratory examinationAntonio Glass [facility] Physician GroupStart: 12-30-2024 End: 17-78-3659Ynwoym flowsheetBenjamin W Murcek DO Work Phone: [facility] SANDUSKYStart: 12-30-2024 End: 94-42-1778Fcnalk flowsheetBenjamin W Murcearnaldo DO Work Phone: [facility] SANDUSKYStart: 12-30-2024 End: 13-92-0977sxpylglucuMSXBRWGX W YESENIACEKNot AvailableStart: 12-30-2024 End: 09-47-2494Llwyid outpatient new 60 minutesBenjamin W Murcek DO Work Phone: [facility] SANDUSKYComment on above:Nontoxic multinodular goiter (Primary Dx)Start: 12-29-2024 End: 51-49-9074Rpqqfsp encounter procedureBenjamin Murcek DO Work Phone: [facility] HealthcareStart: 52-42-1702eawbwtxuoiTjrmav E Braun MD Work Phone: [facility] Work Phone: Start: 98-63-8697Pbt-patient / Non-visitAmy Christine MD-[facility] Work Phone: Start: 05-26-2024 End: 21-54-3926sigaesgmuvJzcfln E BraunFacility:[facility] Hospitaltart: 04-21-2024 End: 77-70-5183rxykvdcpyiKkzzqvyxbMedina Hospital Work Phone: Start: 04-21-2024 End: 34-69-9340Ejhwjap encounter procedureWatauga Medical Center [facility] Work Phone: Start: 85-27-9068Njl-patient / Non-visitFirinova [facility] Work Phone: Start: [id number]-patient / Non-visitFirsparkmans [facility] Work Phone: Start: 19-60-4112Olj-patient / Non-visitFirinova [facility] Work Phone: Start: 03-25-2024 End: 64-65-4405duhonlzdujLglkzcjkuMetroHealth [facility] Work Phone: Start: 03-25-2024 End: 66-25-1665Nxugoxu encounter procedureW[facility] Work Phone: Start: 03-24-2024 End: 31-24-7725ildtzommzyWpgkgbadiMetroHealth Parma Medical Center Work Phone: Start: 03-24-2024 End: 95-55-1974Phkicde encounter procedureWatauga Medical Center [facility] Work Phone: Start: 04-12-2021 End: 71-68-7081etvewvjzhmJQXFSQ ROSSFacility:S7Hoswr: 03-28-2021 End: 70-78-5905cvamoqmojwSQ AMY CHRISTINEFacility:X2Rlzed: 03-22-2021 End: 21-15-8058zbrwdwwqtpZB AMY CHRISTINEFacility:H1 Procedures DateProcedureProcedure DetailPerforming ClinicianStart: 04-03-2136Zlegewl total Antonio W Edgardo DO Work Phone: start: 40-99-6456Suwyqmaja of thyroid glandAmy Christine MD Work Phone: Start: 41-32-8421Egmca of parathormoneBenjamin W Murcek DO Work Phone: start: 30-84-3763Htqzomuv blood count with white cell differential, automatedBenjamin W Murcek DO Work Phone: History of thyroidectomyStatus post total thyroidectomyBenjamin W Murcek DO Work Phone: History of thyroidectomyStatus post total thyroidectomyBenjamin W Murcek DO Work Phone: Plan of Treatment DateCare ActivityDetailAuthorStart: 02-23-2025 End: 88-71-6147Ophexnt encounter procedureNOMS Gregg OtolaryngologyComment on above:ArrivedStart: 02-20-2025 End: 11-83-3553Wdjkmvzlvhz [Units/volume] in Serum or PlasmaNOMS Healthcare Comment on above:Expected: 02/20/2025 (Approximate), Expires: 01/20/2026Start: 02-20-2025 End: 83-95-1344Peqriwtxlflioifw (T3) [Mass/volume] in Serum or PlasmaT3 Lab Routine Nontoxic multinodular goiter Expected: 02/20/2025 (Approximate), Expires: 01/20/2026[facility] Work Phone: comment on above:Expected: 02/20/2025 (Approximate), Expires: 01/20/2026Start: 37-79-8371Gohrxjnyd vaccinationInfluenza Vaccine (#1) [facility] HealthcareStart: 01-20-2025 End: 10-75-3682Imjnkhq encounter procedureNOMS ENT SANDUSKYComment on above: ArrivedStart: 57-28-7753TczagpughCleveland Clinic South Pointe Hospitaltart: 01-13-2025 [facility] Hospitaltart: 70-77-2557Abspsin referralPremier Health [facility] Work Phone: Start: 13-93-0833Estvoqmqoiaw Vaccine: 65+ Years (1 of 1 - PCV)Pneumococcal Vaccine: 65+ Years (1 of 1 - PCV)[facility] HealthcareStart: 19-18-0185Bbxkxeudb for malignant neoplasm of breastMammogramNONM Healthcare Start: 83-49-2908Aritemvdj for malignant neoplasm of colonNOMS HealthcareBasic metabolic 1998 panel - Serum or PlasmaBasic metabolic panel Lab Routine 12/31/2024 11:30 AM EDTBL[facility]OUNTAIN H[facility]ITAL, [facility]. Healthcare Work Phone: dXA Skeletal system.axial Views for bone density [facility] HospitalDXA Skeletal system.axial Views for bone densityMartins Ferry HospitalMG Breast - bilateral ScreeningMartins Ferry HospitalMG Breast - bilateral ScreeningMartins Ferry HospitalPatient EducationKnow your [facility] Work Phone: Patient referralPremier Health [facility] Work Phone: XR Chest 2 [facility] Immunizations Immunization DateImmunizationNotesCare HllrjoaiEcnthssd21-55-3601Fuysdn Purple Cap SARS-CoV-2 VaccinationBenjamin Murcek DO Work Phone: NONM Aahyhbgcro08-54-5669Qfntht Purple Cap SARS-CoV-2 VaccinationBenjamin Murcek DO Work Phone: [facility] Payers DatePayer CategoryPayerPolicy [id number] Health InsuranceUNITED HEALTHCARE [id number] Private Health [id number] [place] [id number] [id number] [id number] [id number] [id number] 2.16.840.1.817503.3.57[id number] 2.16.840.1.732316.3.57[id number] 2.16.840.1.949778.3.57[id number] 2..840.1.278791.3.57[id number] 2..840.1.737737.3.57[id number] 2.16.840.1.57[id number] 2.16.840.1.136716.3.579.2.531 [id number] 2.16.840.1.8[id number] 2.16.840.1.2[id number] 2..840.1.721465.3.579.2.531 Social History DateTypeDetailFacilityTobacc smoking status NHISUnknown if ever smokedPremier Health Upper [facility] Center Work Phone: Start: 14-53-2750Djr Assigned At BirthFeAdams County Regional Medical Centertart: 03-25-2024 End: 88-01-4625Qdswcfs smoking status NHISNever smoked tobacco (finding) [facility] Hospitaltart: 68-42-5349XayVozkzo (finding)[facility]erry HospitalTobacco smoking status NHISTobacco smoking consumption unknownBLUE MOUNTAIN HOSPITAL, [facility]. HealthcareStart: 30-81-5296Vqf assigned at birthNot on fileBLUE MOUNTAIN HOSPITAL, INC. HealthcareStart: 12-30-2024 End: 81-59-0545Hekfdg identityNot on [facility] AssociationStart: 63-01-5733Wfxktww use and exposureSmokeless tobacco non-userNONM HealthcareStart: 12-30-2024 End: 85-70-5368Otwcbrgyx beverage intakeEx-drinker (finding)[facility] Start: 12-30-2024 End: 35-22-7303Xjrlbzq of Social functionNONM Healthcare Goals DatePatient GoalDesired Activity/State Clinical Notes 03-24-2024 to 01-20-2025 Note Date & MxlhWtnsGwibygzr21-19-9400 History of Present illness Narrative* Antonio Reynoso DO - 01/20/2025 9:30 AM EDT HPI Patient presents today week postop total substernal thyroidectomy for nontoxic multinodular goiter.Final pathology is all benign and I made the patient aware that. She is doing very well. Relevant postoperative physical examination Neck incision intact, no evidence of hematoma or seroma. Voice is normal. Assessment/plan Jessica was seen today for post-op. 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 Past Surgical History: Procedure Laterality Date CHOLECYSTECTOMY Social History Socioeconomic History Marital status: Spouse name: Not on file Number of children: Not on file Years of education: Not on file Highest education level: Not on file Occupational History Not on file Tobacco Use Smoking status: Never Smokeless tobacco: Never Substance and Sexual Activity Alcohol use: Not Currently Drug use: Defer Sexual activity: Not on file Other Topics Concern Not on file Social History Narrative Not on file Social Drivers of Health Financial Resource Strain: Not on file Food Insecurity: Not on file Transportation Needs: Not on file Physical Activity: Not on file Stress: Not on file Social Connections: Not on file Intimate Partner Violence: Not on file Housing Stability: Not on file Subjective Patient ID: HPI 69-year-old female referred for thyroid nodules. Patient apparently underwent a chest CT recently which revealed the nodules, shows subsequently underwent a thyroid ultrasound. This reports thyromegaly with large nodules measuring up to 4 cm in size. Interestingly there is no comment on the left lobe. Patient is fairly asymptomatic. Perhaps a little globus sensation. She was unaware she had the nodules. No family history of thyroid disorder or cancer. Factors for thyroid cancer. Review of Systems ROS The specialty specific review of systems is noncontributory except for that recorded in the intake questionnaire and /or described in the history of present illness. Objective ENT Physical Exam Physical Exam Constitutional: Appearance: Normal appearance. HENT: Head: Atraumatic. Ears: External ear shows no abnormality Bilateral ear canals are clear Tympanic membranes intact, no evidence of middle ear fluid or other pathology. Nose: External nose appears to be normal Nares patent. Septal deviation to the left No evidence of polyp, mass or pus bilaterally. Oral Cavity: No evidence of trismus Lips appear normal Dental decent Tongue of normal size and configuration, floor of mouth mucosa clear. Buccal mucosa shows no evidence of ulceration, mass or other abnormality Hard palate soft palate mucosa intact with no evidence of mass, ulceration or other abnormality Uvula of normal size and configuration Oropharynx: Tonsils atrophic Posterior pharyngeal wall normal Neck: No evidence of palpable abnormality Thyroid without evidence of thyromegaly or mass. No cervical lymphadenopathy present. Cardiovascular: Rate and Rhythm: Normal rate and regular rhythm. . Skin: General: Skin is warm and dry. Neurological: General: No focal deficit present. Mental Status: alert and oriented to person, place, and time. THYROID ULTRASOUND EXAMINATION Indication: Thyroid nodule After informed consent was obtained the patient was placed supine on the examining table. Patient was asked to extend the neck. Topical ultrasound jelly was used. The right lobe of the thyroid gland measures 5.1 cm in greatest dimension. The majority of the lobe was replaced by 2 individual nodules, both of which are hypoechoic and mildly spongiform with no internal vascularity microcalcification largest measuring a little over 3 cm in size inferiorly. The isthmus is unremarkable. The left lobe of the thyroid gland measures ___ 5.4 ____ cm greatest dimension. Almost the entiretyof the lobe was replaced by a single nodule has moderate internal vascularity but no microcalcification measuring 4.1 cm in greatest dimension. There is no adenopathy in the central compartment. There is no appreciable adenopathy in either lateral neck. FIBEROPTIC NASOPHARYNGOLARYNGOSCOPY A diagnostic flexible fiberoptic laryngoscopy was performed. The flexible fiberoptic laryngoscope was placed into the nose and advanced to the level of the tip of the epiglottis. Examination of the larynx including both surfaces of the epiglottis false and true vocal folds, arytenoids and surrounding mucosal surfaces show no evidence of lesion, ulceration or mass. Normal bilateral true vocal foldmotion is present. Bilateral piriform sinuses and base of tongue appear without lesion Assessment/Plan Jessica was seen today for thyroid nodule. Diagnoses and all orders for this visit: Nontoxic multinodular goiter (Primary) Comments: Given the size of the left thyroid nodule this needs to be removed for both therapeutic as well as diagnostic purposes. However because of the patient's age and the multiple nodules in the right lobe I recommended a total thyroidectomy. The risks and benefits of thyroidectomy were discussed with the patient. These include but are not inclusive of perioperative , infection, major neurovascular injury, recurrent laryngeal nerve injury/dysfx, hoarsness, permanent vocal cord paralysis, permanent hyoparathyroidism, poor scaring, sw allowing and/or voice difficulties, etc. The patient has consented to proceed. documented in this encounterPemiscot Memorial Health [id number] Chief complaint+Reason for visit Narrative* Chief Complaint Admit Date Referral Order December 11, 2024 10:44 am Multinodular Goiter December 31, 2024 10:4 0am [facility] Work Phone: 1(875) 721-194307-03-2025 Chief complaint+Reason for visit Narrative * Chief Complaint Admit Date Referral Order December 11, 2024 10:44 am Multinodular Goiter December 31, 2024 10:4 0am Multinodular Goiter January 13, 2025 11: 07am [facility] Work Phone: 1(343) 465-113307-03-2025 Chief complaint+Reason for visit Narrative * Chief Complaint Admit Date Referral Order December 11, 2024 10:44 am Multinodular Goiter December 31, 2024 10:4 0am Multinodular Goiter January 13, 2025 11: 07am E04.2 2025 10:13am [facility] Work Phone: 1(226) 229-891610-14-2024 Evaluation note* Diagnosis Onset Date Resolution Status Admit Date Lower respiratory infection (e.g., bronc hitis, pneumonia, pneumonitis, noneactiveOctober 2023 4:33pmMedicare annual wellness visit, subsequent acuteOctober 2023 11:25amMenopauseacuteOctober 2023 11:25amScreening mammogram for breast canceracuteOctober 2023 11:25amBronchitisacute April 21, 2024 3:35pm [facility] Work Phone: Chief complaint+Reason for visit Narrative* Chief Complaint Admit Date Referral Order December 11, 2024 10:44 am [facility] Work Phone: Evaluation noteNo assessment information available [facility] Work Phone: Evaluation note* Diagnosis Onset Date Resolution Status [id number] noneactiveMenopauseacuteScreening mammogram for breast canceracute [facility] Work Phone: Evaluation note* Diagnosis Nontoxic multinodular goiter- Primary Nontoxic multinodular goiter documented in this encounter [facility] HealthcareEvaluation note* Diagnosis Status post total thyroidectomy- Primary Other postprocedural status Nontoxic multinodular goiter Nontoxic multinodular goiter documented in this encounter [facility] HealthcareEvaluation note* Diagnosis Status post total thyroidectomy- Primary Other postprocedural status documented in this encounter [facility] HealthcareEvaluation note* Diagnosis Onset Date Resolution Status Admit Date Menopause acuteOct2024 9:50amScreening mammogram for breast cancerresolved March 31, 2025 9:50am [facility] Work Phone: History of Present illness Narrative* Antonio Reynoso DO - 02/23/2025 4:00 PM EDT HPI Patient presents today about 6 weeks postop total substernal thyroidectomy. She is doing great. Recent lab work is all within normal limits. Taking Synthroid 100 micro g daily. Relevant postoperative physical examination Neck incision is well Healed and scar is fading. Assessment/plan Jessica was seen today for post-op. Diagnoses and all orders for this visit: Status post total thyroidectomy (Primary) Comments: I am going to renew the patient's Synthroid for 6 months. I will release her back to her PCP. I would recommend checking her thyroid function test twice yearly. I will see her back as needed documented in this encounterBLUE MOUNTAIN HOSPITAL, INC. HealthcareHospital Discharge instructions Ambulatory Orders* Referral to ENT Time Frame: 12/11/24, Location: None Selected [facility] Work Phone: Hospital Discharge instructions Additional Instructions DISCHARGE INSTRUCTIONS FOR THYROIDECTOMY ACTIVITY -No lifting or straining. -No strenuous activity for 2 weeks. -Sleep with head elevated on two pillows. -May shower tomorrow. -You may shower and wash the incision with soap and water, but do not submerge the incision or allow prolonged exposure to water. Pat dry. -No driving for at least 5 days, or while taking prescription pain medicine. WOUND CARE/DRESSING -Be sure to keep your incision clean and dry. -There is a clear, glue-like adhesive on your incision. Do not peel or pick at this adhesive. It wall fall off on its own after a few days. -Call the office if incision area appears to have any sign of infection, such as increased swelling, redness, or purulent drainage. -Watch for bleeding, swelling, difficulty breathing, difficulty swallowing. MEDICATION -If any prescriptions have been given to you, be sure to take as directed. OTHER Any problems- call the office or return to the Emergency Room. If you are having excessive or persistent pain, swelling, fever (oral temp >101), yellow-green foul smelling drainage or bleeding from incision, excessive redness of incision, nausea, vomiting, or any other problems, you should first call your surgeon for advice. If you are unable to contact your surgeon, seek help from a hospital emergency room. FOLLOW UP -Call the office to follow up in one week. -Synthroid as prescribed.[facility] Work Phone: Reason for referral (narrative)No reason for referral information availableSelect Medical Specialty [facility] Work Phone: Summary Purpose Family History Relationship Condition Age at Onset Recorded Date/T andreas Not Specified No pertinent family history Unknown Advance Directives Advance Directive Response Recorded Date/ Time Advance Directives No March 24, 2024 4:12pm Advance Directive Response Recorded Date/ Time Advance Directives No March 24, 2024 3:12pm Chief Complaint and Reason for Visit Chief Complaint cough(2 weeks) Chief Complaint cough(2 weeks) wellness/re-establishReason for [id number] Menopause Screening mammogram for breast cancer Chief [...] 1:25am Screening mammogram for breast cancer Oc 2023 11:25am Bronchitis April 21, 2024 3:35pm Chief Complaint Admit Date Multinodular Goiter December 31, 2024 10:4 0am Multinodular Goiter January 13, 2025 11: 07am E04.2 2025 10:13am Wellness March 31, 2025 9 :50am Reason for Visit Admit Date Menopause March 31, 2025 9 :50am Screening mammogram for breast cancer Oc 2024 9:50am Additional Source Comments INFORMATION SOURCE (unrecogn ized section and content) DATE CREATED AUTHOR 04/25/2021 [facility] DATE CREATED AUTHOR AUTHOR'S ORGANIZ ATION 02/24/2025 [facility] DATE CREATED AUTHOR AUTHOR'S ORGANIZ ATION 02/24/2025 [facility] EPIC Care Teams (unrecognized sec tion and content) Team Status: Active Member Role Status Dates NON STAFF Primary Care Provider Active Team Status: Inactive Member Role Status Dates Ariana Aceves APRN Attending Provider Active Start: March 24, 2024 End: March 24, 2024NON STAFFPrimary Care ProviderActiveStart: March 24, 2024 End: March 24, 2024 Team Status: Inactive Member Role Status Dates Amy Christine MD Attending Provider Active St art: March 25, 2024 End: March 25, 2024NON STAFFPrimary Care ProviderActiveStart: March 25, 2024 End: March 25, 2024 Team Status: Active Member Role Status Dates NON STAFF Primary Care Provider Active Start: April 13, 2024 Adelaida Bravo DOAttending ProviderActiveStart: April 13, 2024 Team Status: Active Member Role Status Dates NON STAFF Primary Care Provider Active Start: April 14, 2024 Yudelka Bergerending ProviderActiveStart: April 14, 2024 Team Status: Active Member Role Status Dates NON STAFF Primary Care Provider Active Start: April 16, 2024 Rea Rodriguez ProviderActiveStart: April 16, 2024 Team Status: Inactive Member Role Status Dates NON STAFF Primary Care Provider Active Start: April 21, 2024 End: April 21, 2024Rea Rodriguez ProviderActiveStart: April 21, 2024 End: April 21, 2024 Team Status: Active Member Role Status Dates Amy Christine MD Primary Care Provider Active Team Status: Active Member Role Status Dates Aym Christine MD Primary Care Provider Active Start: December 11, 2024 Amy Crhistine MDAttmorales ProviderActiveStart: December 11, 2024 Team MemberRelationshipSpecialtyStart DateEnd Date Amy Christine MD [address] [place] [facility] [place] [phone] PCP - Generalmily Medicine12/24/24Team MemberRelationshipSpecialtyStart DateEnd Date Amy Christine MD [address] [place] [facility] [place] [id number] PCP - Generalmi Medicine12/24/24Team MemberRelationshipSpecialtyStart DateEnd Date Amy Christine MD [address] [place] [facility] [place] [phone] [facility] - [facility]12/24/24Team MemberRelationshipSpecialtyStart DateEnd Date Amy Christine MD [address] [place] [facility] [place] [phone] PCP - Generalmi Medicine12/24/24 Team Status: Inactive Member Role Status Dates Amy Christine MD Primary Care Provider Active Start: December 31, 2024 End: December 31Macey Tanner ProviderActiveStart: December 31, 2024 End: December 31, 2024 Team Status: Inactive Member Role Status Dates Amy Christine MD Primary Care Provider Active Start: January 13, 2025 End: January 13tammie Reynoso DOAttending ProviderActiveStart: January 13, 2025 End: January 13, 2025Team MemberRelationshipSpecialtyStart DateEnd Date Amy Christine MD [address] [place] [address] PCP - [facility]12/24/24 Team Status: Inactive Member Role Status Dates Amy Christine MD Primary Care Provider Active Start: 2025 End: February 18enjamin Murcek , DOAttending ProviderActiveStart: 2025 End: February 18, 2025Team MemberRelationshipSpecialtyStart DateEnd Date Amy Christine MD [address] [place] [phone] [facility] - [facility]12/24/24 Team Status: Active Member Role/Relationship Status Dates Amy Christine MD Primary Care Provider Active Team Status: Inactive Member Role/Relationship Status Dates Amy Christine MD Primary Care Provider Active Start: December 31, 2024 End: December 31enjamin Murcek , DOAttending ProviderActiveStart: December 31, 2024 End: December 31, 2024 Team Status: Inactive Member Role/Relationship Status Dates Amy Christine MD Primary Care Provider Active Start: January 13, 2025 End: January 13enjamin Murcek , DOAttending ProviderActiveStart: January 13, 2025 End: January 13, 2025 Team Status: Inactive Member Role/Relationship Status Dates Amy Christine MD Primary Care Provider Active Start: 2025 End: February 18enjamin Murcek , DOAttending ProviderActiveStart: 2025 End: 2025 Team Status: Inactive Member Role/Relationship Status Dates Amy Christine MD Primary Care Provider Active Start: March 31, 2025 End: March 31, 2025Amy Christine MDAttmorales ProviderActiveStart: March 31, 2025 End: March 31, 2025 Goals (unrecognized section and content) Goals may be documented in a n alternate sectionGoals may be documented in an alternate sectionGoals may be documented in an alternate sectionGoals may be documented in an alternate sectionGoals may be documented in an alternate section Reason for Visit (unrecogniz ed section and content) ReasonCommentsThyroid NoduleNew patient : thyroid noduleReasonCommentsPost-op Post op total thyroidReasonCommentsPost-op FOR RECORDS PERTAINING TO PATIENTS WHO ARE [...] BE BASED ON THE PRIMARY CLINICAL RECORDS. [employer] [facility]. provides no warranty or guarantee of the accuracy or completeness of information in this document.
== END 2025-04-09 14:19 | disposition home or self-care (01) ==
LOC: MAMMO 14:18
PROVIDERS: PCP Family Medicine; Visit Provider Family Medicine
DX: Z12.31 Encounter for screening mammogram for malignant neoplasm of breast (principal); Z78.0 Asymptomatic menopausal state; Z80.8 Family history of malignant neoplasm of other organs or systems; M81.0 Age-related osteoporosis without current pathological fracture; M85.88 Other specified disorders of bone density and structure, other site
CPT/HCPCS: 77063; 77067; 77080